=== PATIENT | male | born 1945 | race Caucasian/White ===

== ENCOUNTER 2018-03-15 17:39 | Inpatient (IN) | payer MEDICARE, MEDICAID ==
[2018-03-15 18:36] LABS: #Eosinphils 0.1 thou/uL (0.0-0.7); #Lymphocytes 0.7 thou/uL (1.20-3.40); #Monocytes 0.4 thou/uL (0.11-0.59); #Neutrophils 6.7 thou/uL (1.40-6.50); %Basophils 0.5 % (0.0-1.0); %Eosinophils 0.7 % (0.0-10.0); %Monocytes 5.3 % (0.0-10.0); %Neutrophils 84.4 % (42.0-75.0); Hemoglobin 12.3 g/dL (14.0-18.0); Mean Corpuscular HGB CONC 32.2 g/dL (32.0-36.0); Mean Corpuscular Volume 96.4 fL (78.0-98.0); Mean Platelet Volume 7.7 fL (7.4-10.4); Platelet Count 146 thou/uL (130-400); RBC Distribution Width 12.1 % (11.5-14.5); Red Blood Cell (RBC) Count 3.97 mill/uL (4.70-6.10); White Blood Cell (WBC) Count 7.9 thou/uL (4.8-10.8)
--- NOTE | 2018-03-15 18:40 | RAD ---
PORTABLE CHEST: 03/15/18 HISTORY: Tachycardia. Heart mildly prominent. Vascular markings upper normal. No infiltrate or effusion. IMPRESSION: No acute process. POS: [facility]
[2018-03-15 18:57] LABS: ALT (SGPT) 39 U/L (8-55); AST (SGOT) 31 U/L (5-34); Albumin 4.1 g/dL (3.4-4.8); Alkaline Phosphatase 62 U/L (40-150); Anion Gap 16 mmol/L (10-20); BUN (Urea Nitrogen) 37 mg/dL (8.4-25.7); Bilirubin, Total 0.4 mg/dL (0.2-1.2); Calc. Creatinine Clearance 0 mL/min (70-130); Calcium 9.2 mg/dL (7.8-10.44); Carbon Dioxide 22 mmol/L (23-31); Chloride 105 mmol/L (98-107); Estimated GFR-MDRD 56; Globulin 2.4 g/dL (2.4-3.5); Glucose 85 mg/dL (83-110); Potassium 4.4 mmol/L (3.5-5.1); Protein, Total 6.5 g/dL (5.8-8.1); Sodium 139 mmol/L (136-145)
[2018-03-15 19:02] LABS: CKMB 1.9 ng/mL (0-6.6); Troponin I 0.091 ng/mL (< 0.028)
[2018-03-15] MEDS ORDERED: Enoxaparin Sodium 80 MG/0.8 ML SYRINGE ONE (19:51)
[2018-03-15] MEDS ORDERED: Diltiazem 125 MG/25 ML ONE (21:05)
[2018-03-15] MEDS ORDERED: Acetaminophen 325 MG TAB PO PRN (21:20)
[2018-03-15] MEDS ORDERED: Dextrose 50% Abboject 50 ML SYRINGE SLOW IVP PRN (21:21)
[2018-03-15] MEDS ORDERED: Dextrose 5% in Water 1,000 ML IV PRN (21:21)
[2018-03-15 21:50] LABS: Troponin I 0.101 ng/mL (< 0.028)
[2018-03-15] MEDS ORDERED: Diltiazem HCl 125 MG, Admixture Fee 1 EACH in Sodium Chloride 0.9% 100 ML IVPB SCH (23:15)
[2018-03-15] MEDS ORDERED: Diltiazem 125 MG in Sodium Chloride 0.9% 100 ML IVPB SCH (23:45)
[2018-03-16 00:47] LABS: Troponin I 0.121 ng/mL (< 0.028)
--- NOTE | 2018-03-16 05:23 | HP ---
CHIEF COMPLAINT: Generalized weakness. HISTORY OF PRESENT ILLNESS: The patient is a 72-year-old male who is currently in a rehab center who presents to the hospital with complaints of generalized weakness. However, per documentation, it wa s noted that patient came in from the longterm for elevated heart rate. When I asked the patient , he stated that he has been feeling weak for the past few days. By EMS report, patient was found to have SVT at the rate of 158. He was given 2 boluses of adenosine, which then transferred to atrial flutter and then to normal sinus. The patient then was started on a Cardizem drip and was admitted i [facility] the hospital. The patient currently denies any chest pain, shortness of breath, nausea, vomiting or diarrhea. The patient states that currently he feels just fine. The patient stated to me that faye duke lives with his brother and his nephew. PAST MEDICAL HISTORY: He has a history of diabetes type 2, hypertension, bipolar illness, dyslipidem ia, chronic thrombocytopenia, and history of alcoholism. PAST SURGICAL HISTORY: He has had left foot surgery. CURRENT MEDICATIONS: I do not have a list. I did speak with the nurse, she said that she is waiting for the list from the rehab center. SOCIAL HISTORY: He chews tobacco on a regular basis. Denies any alcohol or smoking history or any d rug use. ALLERGIES: He has no known drug allergies. FAMILY HISTORY: His parents are . He does have 4 brothers and 2 sisters. Two brothers of unknown causes. Two brothers and sisters are still alive. REVIEW OF SYSTEMS: All negative except for the ones mentioned above in the HPI. PHYSICAL EXAMINATION: VITAL SIGNS: As of the following, temperature of 97.9, pulse 82, respiratory rate of 20, sats 94% ro om air, blood pressure 153/72. GENERAL: He is awake, alert, oriented x3. HEENT: Normocephalic, atraumatic. NECK: No lymphadenopathy noted. CARDIOVASCULAR: Irregularly irregular. LUNGS: Clear to auscultation. No rhonchi or wheezes noted. ABDOMEN: Soft, nontender. Bowel sounds are present x2. EXTREMITIES: No edema. Pedal pulses are present x2. NEUROLOGIC: Neurovascular mckeon, no focal deficits noted. SKIN: Intact. No lesions noted. LABORATORY RESULTS: As of the following: WBCs of 7.9, hemoglobin of 12.3, hematocrit of 38.3, plate lets of 146. Chemistry: Sodium of 139, potassium of 4.4, BUN of 37, creatinine 1.26. His troponins are mildly elevated at 0.091, 0.101. EKG just indicated atrial fibrillation and a repeat one was no rmal sinus. ASSESSMENT AND PLAN: The patient is a very pleasant 72-year-old male who presents to the hospital wi th generalized weakness. 1. Atrial fibrillation with rapid ventricular response/atrial flutter. The patient will be started on Cardizem drip. He is currently at 10 and he is doing well. We will continue to monitor. We will also start the patient on some aspirin and consult Cardiology and get an echocardi[facility]. 2. Elevated troponins. This could be secondary from his tachycardia. The patient currently has no chest pain, no EKG changes. We will still continue Lovenox b.i.d. and also see what Cardiology has t o say and the patient is on aspirin. 3. History of bipolar disorder. Awaiting patient's medications for reconciliation. 4. Deep venous thrombosis prophylaxis. The patient is already on Lovenox.
[2018-03-16 05:29] LABS: #Basophils 0.1 thou/uL (0.0-0.2); #Eosinphils 0.1 thou/uL (0.0-0.7); #Lymphocytes 1.2 thou/uL (1.20-3.40); #Monocytes 0.4 thou/uL (0.11-0.59); %Basophils 1.1 % (0.0-1.0); %Eosinophils 1.6 % (0.0-10.0); %Lymphocytes 25.2 % (21.0-51.0); Hemoglobin 11.1 g/dL (14.0-18.0); Mean Corpuscular HGB CONC 32.7 g/dL (32.0-36.0); Mean Corpuscular Hemoglobin 31.3 pg (27.0-31.0); Mean Corpuscular Volume 95.5 fL (78.0-98.0); Platelet Count 139 thou/uL (130-400); Red Blood Cell (RBC) Count 3.55 mill/uL (4.70-6.10); White Blood Cell (WBC) Count 4.7 thou/uL (4.8-10.8)
[2018-03-16 05:45] LABS: Anion Gap 11 mmol/L (10-20); BUN (Urea Nitrogen) 33 mg/dL (8.4-25.7); Calc. Creatinine Clearance 60 mL/min (70-130); Calcium 9.1 mg/dL (7.8-10.44); Carbon Dioxide 28 mmol/L (23-31); Chloride 106 mmol/L (98-107); Estimated GFR-MDRD 60; Glucose 166 mg/dL (83-110); Sodium 141 mmol/L (136-145)
[2018-03-16] MEDS: Gabapentin 300 MG CAP PO SCH (08:15)
[2018-03-16] MEDS ORDERED: Enoxaparin Sodium 80 MG/0.8 ML SYRINGE SC SCH (09:00)
[2018-03-16] MEDS ORDERED: Prevnar 13-Val Conj/PF 0.5 ML SYRINGE IM ONE (09:00)
[2018-03-16] MEDS ORDERED: Benztropine 1 MG TAB PO PRN (13:57)
--- NOTE | 2018-03-16 14:08 | PDOC.PN ---
- Subjective Encounter Start Date: 03/16/18 Encounter Start Time: 07:40 Pt seen for followup re; a. fib with RVR. Pt denies chest pain, shortness of breath, fevers or chills. - Objective Resuscitation Status: Resuscitation Status FULL:Full Resuscitation MAR Reviewed: Yes Vital Signs & Weight: Vital Signs (12 hours) Temp Pulse Resp BP Pulse Ox 03/16/18 12:40 96.2 F L 94 18 103/61 95 03/16/18 08:00 99 03/16/18 07:34 97.8 F 99 16 120/62 97 03/16/18 04:00 97.6 F 80 14 95/58 L 94 L Weight Weight 169 lb 3.2 oz I&O: 03/15/18 03/16/18 03/17/18 06:59 06:59 06:59 Intake Total 240 Balance 240 Result Diagrams: 03/16/18 05:00 03/16/18 05:00 Additional Labs: Accuchecks 03/16/18 03/16/18 10:53 05:28 POC Glucose 143 H 138 H EKG Reviewed by me: Yes (Tele: ruth ann richardson) Phys Exam - Physical Examination Constitutional: NAD HEENT: moist MMs Neck: supple Respiratory: clear to auscultation bilateral Cardiovascular: irregular Gastrointestinal: soft Neurological: moves all 4 limbs Psychiatric: normal affect Dx/Plan (1) Atrial fibrillation with RVR Code(s): I48.91 - UNSPECIFIED ATRIAL FIBRILLATION Status: Acute Comment: unclear whether a. fib is a new diagnosis. Pt was on apixaban and metoprolol at Rehab. Will switch back to metoprolol and monitor. Discontinue Lovenox and start apixaban. (2) DM2 (diabetes mellitus, type 2) Status: Chronic Qualifiers: Comment: continue accuchecks and insulin sliding scale (3) HTN (hypertension) Code(s): I10 - ESSENTIAL (PRIMARY) HYPERTENSION Status: Chronic Qualifiers: Comment: controlled - Plan * . Review of Systems - Review of Systems Respiratory: negative: Cough, Shortness of Breath, SOB with Excertion, Pleuritic Pain, Wheezing Cardiovascular: negative: chest pain, palpitations, orthopnea, paroxysmal nocturnal dyspnea, edema, light headedness - Medications/Allergies Allergies/Adverse Reactions: Allergies Allergy/AdvReac Type Severity Reaction Status Date / Time No Known Drug Allergies Allergy Verified 03/16/18 02:10 Medications: Current Medications Acetaminophen (Tylenol) 650 mg PO Q4H PRN PRN Reason: Headache/Fever/Mild Pain (1-3) Apixaban (Eliquis) 2.5 mg PO BID [facility] Aspirin (Aspirin Chewable) 81 mg PO DAILY [facility] Last Admin: 03/16/18 08:15 Dose: 81 mg Aspirin (Aspirin Chewable) 81 mg PO DAILY [facility] Atorvastatin Calcium (Lipitor) 20 mg PO HS [facility] Atorvastatin Calcium (Lipitor) 40 mg PO DAILY [facility] Benztropine Mesylate (Cogentin) 1 mg PO HS [facility] Benztropine Mesylate (Cogentin) 1 mg PO PRN PRN PRN Reason: SORE THROAT Cyanocobalamin (Vitamin B-12) 1,000 mcg SC Q7D [facility] Dextrose/Water (Dextrose 50%) 25 gm SLOW IVP PRN PRN PRN Reason: Hypoglycemia Famotidine (Pepcid) 20 mg PO DAILY [facility] Gabapentin (Neurontin) 600 mg PO DAILY [facility] Last Admin: 03/16/18 08:15 Dose: 600 mg Glucagon (Glucagon) 1 mg IM PRN PRN PRN Reason: Hypoglycemia Haloperidol (Haldol) 5 mg PO HS [facility] Dextrose/Water (D5w) 1,000 mls @ 0 mls/hr IV .Q0M PRN PRN Reason: Hypoglycemia Insulin Human Lispro (Humalog) 0 units SC .MILD SLIDING SCALE PRN PRN Reason: Mild Correctional Scale Iron/Minerals/Multivitamins (Theragran M) 1 tab PO DAILY [facility] Lisinopril (Zestril) 40 mg PO DAILY [facility] Metformin HCl (Glucophage) 500 mg PO TID-WM [facility] Metoprolol Tartrate (Lopressor) 50 mg PO BID [facility] Pioglitazone HCl (Actos) 45 mg PO DAILY [facility] Tamsulosin HCl (Flomax) 0.4 mg PO DAILY [facility] Tramadol HCl (Ultram) 50 mg PO Q6H PRN PRN Reason: Pain 4-6
--- NOTE | 2018-03-16 14:58 | CON ---
DATE OF CONSULTATION: 03/16/2018 CARDIOLOGY CONSULTATION REASON FOR CONSULTATION: Atrial fibrillation. HISTORY OF PRESENT ILLNESS: Mr. Modi is a very pleasant 72-year-old white gentleman who comes to [facility] for feeling weak. He had noticed shortness of breath and just tiredness and weakness for the last few weeks. He was at a care home. He felt worse yesterday, so 911 was called. EMS show ed up and found him to be tachycardia with a heart rate in the 150s, thought to be SVT, so he was giv en a dose at adenosine and he evidenced atrial flutter at that time. Eventually, he was placed on a Cardizem drip and converted into atrial fibrillation. Currently, he is on a Cardizem drip with axel azar low blood pressures, but heart rate is in the 70s-90s. He denies any chest pain, tightness, pr essure. No shortness of breath. PAST MEDICAL HISTORY: 1. Type 2 diabetes. 2. Hypertension. 3. Bipolar disorder. 4. Hyperlipidemia. 5. Chronic thrombocytopenia. He tells me he has never drank. He has never been a heavy alcohol user. There is apparently a William hu, who is actually his brother, who is a heavy alcohol user and he thinks people have confused him with his brother. He tells me he has heard the diagnosis of cirrhosis, but he does believe he has i t. PAST SURGICAL HISTORY: Left foot surgery. OUTPATIENT MEDICATIONS: 1. Insulin. 2. Tylenol p.r.n. 3. Loperamide. 4. Clonidine p.r.n. 5. Calcium. 6. Guaifenesin p.r.n. 7. Famotidine 20 mg a day. 8. Eliquis 2.5 mg b.i.d. 9. MiraLax p.r.n. 10. Multivitamin daily. 11. Metoprolol 50 mg b.i.d. 12. Lisinopril 40 mg a day. 13. Cogentin 1 mg at bedtime. 14. Lipitor 40 mg a day. 15. Aspirin 81 a day. 16. Tamsulosin 0.4 daily. 17. Benztropine p.r.n. 18. Metformin 500 mg t.i.d. 19. Actos. 20. Haldol at bedtime. 21. Tramadol p.r.n. ALLERGIES: No known drug allergies. SOCIAL HISTORY: Chews tobacco. No alcohol or drugs. FAMILY HISTORY: Noncontributory. Two brothers from unknown causes. A sister and a brother are still alive. REVIEW OF SYSTEMS: A 12-point review of systems was done and it is all negative unless stated in the history of present illness. PHYSICAL EXAMINATION: VITAL SIGNS: Temperature 96.2, pulse 94, respiration rate 18, satting 95% on room air, blood pressur e 103/61. GENERAL: Awake, alert, oriented x3, in no distress. HEENT: Normocephalic, atraumatic. NECK: Supple. LUNGS: Clear. CARDIOVASCULAR: S1, S2. No S3 or S4. Irregularly irregular heart rate in the 80s. No murmurs or r ubs. ABDOMEN: Soft. Positive bowel sounds. EXTREMITIES: Trace edema. SKIN: Warm and dry. LABORATORY WORK: Reviewed. CBC with a white count of 11.1, hemoglobin of 33, platelet count of 139, 000. Coags, D-dimer was normal. Chemistries unremarkable. His LFTs are all normal. Bilirubin is 0 .4. Troponin at indeterminate range at 0.09, 0.10 and 0.12. This is consistent with his normal base line creatinine he always runs at. Albumin of 4.1. Echocardiogram was reviewed. Chest x-ray was reviewed. ASSESSMENT: 1. Paroxysmal atrial fibrillation. 2. Chronic thrombocytopenia, though his platelets are in the 130s, slightly decreased. 3. Questionable history of alcohol use. He denies this and states that it is his brother, actually William Modi, not Isaiah Modi, who is actually the alcoholic of the family. PLAN: 1. We would continue Eliquis for stroke prophylaxis. He is really not at fall risk. He has never h ad any bleeding issues. 2. We will transition his diltiazem drip to p.o. We will just restart his p.o. metoprolol and try t o up titrate that as necessary as most likely if we switch him to p.o. diltiazem, this will drop his blood pressure too much. 3. May cut back on his lisinopril to 20 a day to have a little more space for blood pressure. 4. We will follow. Thank you for letting us participate in the care of this patient.
[2018-03-16] MEDS: HumaLOG 300 UNITS/3 ML VIAL SC PRN (17:08)
[2018-03-16] MEDS: metFORMIN 500 MG TAB PO SCH (17:08)
[2018-03-16] MEDS: Haloperidol 5 MG TAB PO SCH (21:38)
[2018-03-16] MEDS: Metoprolol Tartrate 50 MG TAB PO SCH (21:38)
[2018-03-16] MEDS: Benztropine 1 MG TAB PO SCH (21:38)
[2018-03-16] MEDS: Atorvastatin Calcium 20 MG TAB PO SCH (21:38)
[2018-03-16] MEDS: Apixaban 2.5 MG TAB PO SCH (21:38)
[2018-03-17] MEDS: Metoprolol Tartrate 50 MG TAB PO SCH (06:08)
[2018-03-17] MEDS ORDERED: Diltiazem 125 MG in Sodium Chloride 0.9% 100 ML IVPB SCH (06:30)
[2018-03-17] MEDS: Apixaban 2.5 MG TAB PO SCH ×2 (08:19→19:37)
[2018-03-17] MEDS: metFORMIN 500 MG TAB PO SCH ×3 (08:19→17:36)
[2018-03-17] MEDS: Multivitamin W/ Minerals 1 TAB PO SCH (08:20)
[2018-03-17] MEDS: Pioglitazone HCl 45 MG TAB PO SCH (08:20)
[2018-03-17] MEDS: Gabapentin 300 MG CAP PO SCH (08:20)
[2018-03-17] MEDS: Cyanocobalamin 1000 MCG/ML VIAL SC SCH (08:20)
[2018-03-17] MEDS: Tamsulosin HCl 0.4 MG CAP PO SCH (08:20)
[2018-03-17] MEDS: Famotidine 20 MG TAB PO SCH (08:20)
[2018-03-17] MEDS: Lisinopril 20 MG TAB PO SCH (08:20)
[2018-03-17] MEDS ORDERED: Metoprolol Tartrate 25 MG TAB PO SCH ×2 (09:00→11:30)
[2018-03-17] MEDS ORDERED: Atorvastatin Calcium 40 MG TAB PO SCH (09:00)
[2018-03-17] MEDS ORDERED: Lisinopril 20 MG TAB PO SCH (09:00)
[2018-03-17] MEDS: Metoprolol Tartrate 25 MG TAB PO SCH ×2 (11:33→19:36)
--- NOTE | 2018-03-17 11:46 | PDOC.PN ---
- Subjective Encounter Start Date: 03/17/18 Encounter Start Time: 07:40 Pt seen for followup re: afib with RVR. Denies chest pain, shortness of breath , fevers or chills. - Objective Resuscitation Status: Resuscitation Status FULL:Full Resuscitation MAR Reviewed: Yes Vital Signs & Weight: Vital Signs (12 hours) Temp Pulse Resp BP Pulse Ox 03/17/18 11:22 98.9 F 102 H 16 109/65 03/17/18 08:00 92 L 03/17/18 07:34 98.8 F 67 16 120/59 L 92 L 03/17/18 04:00 98.5 F 108 H 22 H 139/97 H 93 L Weight Weight 169 lb I&O: 03/16/18 03/17/18 03/18/18 06:59 06:59 06:59 Intake Total 240 720 Balance 240 720 Result Diagrams: 03/18/18 04:45 03/18/18 04:45 Additional Labs: Accuchecks 03/16/18 03/16/18 20:49 16:45 POC Glucose 178 H 227 H EKG Reviewed by me: Yes (Tele: ruth ann richardson) Phys Exam - Physical Examination Constitutional: NAD HEENT: moist MMs Neck: supple Respiratory: clear to auscultation bilateral Cardiovascular: irregular Gastrointestinal: soft Neurological: moves all 4 limbs Psychiatric: normal affect Dx/Plan (1) Atrial fibrillation with RVR Code(s): I48.91 - UNSPECIFIED ATRIAL FIBRILLATION Status: Acute Comment: uPt went into afib with RVR overnight, is back on Cardizem drip. (2) DM2 (diabetes mellitus, type 2) Status: Chronic Qualifiers: Comment: reasonable control (3) HTN (hypertension) Code(s): I10 - ESSENTIAL (PRIMARY) HYPERTENSION Status: Chronic Qualifiers: Comment: controlled - Plan * . Review of Systems - Review of Systems Cardiovascular: negative: chest pain, palpitations, orthopnea, paroxysmal nocturnal dyspnea, edema, light headedness Gastrointestinal: negative: Nausea, Vomiting, Abdominal Pain, Diarrhea, Constipation, Melena, Hematochezia - Medications/Allergies Allergies/Adverse Reactions: Allergies Allergy/AdvReac Type Severity Reaction Status Date / Time No Known Drug Allergies Allergy Verified 03/16/18 02:10 Medications: Current Medications Acetaminophen (Tylenol) 650 mg PO Q4H PRN PRN Reason: Headache/Fever/Mild Pain (1-3) Apixaban (Eliquis) 2.5 mg PO BID [facility] Last Admin: 03/17/18 08:19 Dose: 2.5 mg Aspirin (Aspirin Chewable) 81 mg PO DAILY [facility] Last Admin: 03/17/18 08:20 Dose: 81 mg Atorvastatin Calcium (Lipitor) 20 mg PO HS [facility] Last Admin: 03/16/18 21:38 Dose: 20 mg Benztropine Mesylate (Cogentin) 1 mg PO HS [facility] Last Admin: 03/16/18 21:38 Dose: 1 mg Cyanocobalamin (Vitamin B-12) 1,000 mcg SC Q7D [facility] Last Admin: 03/17/18 08:20 Dose: 1,000 mcg Dextrose/Water (Dextrose 50%) 25 gm SLOW IVP PRN PRN PRN Reason: Hypoglycemia Famotidine (Pepcid) 20 mg PO DAILY [facility] Last Admin: 03/17/18 08:20 Dose: 20 mg Gabapentin (Neurontin) 600 mg PO DAILY [facility] Last Admin: 03/17/18 08:20 Dose: 600 mg Glucagon (Glucagon) 1 mg IM PRN PRN PRN Reason: Hypoglycemia Haloperidol (Haldol) 5 mg PO [facility] Last Admin: 03/16/18 21:38 Dose: 5 mg Dextrose/Water (D5w) 1,000 mls @ 0 mls/hr IV .Q0M PRN PRN Reason: Hypoglycemia Diltiazem HCl 125 mg/ Sodium (Chloride) 125 mls @ 5 mls/hr IVPB INF [facility] Last Admin: 03/17/18 07:01 Dose: 125 mls Insulin Human Lispro (Humalog) 0 units SC .MILD SLIDING SCALE PRN PRN Reason: Mild Correctional Scale Last Admin: 03/16/18 17:08 Dose: 3 unit Iron/Minerals/Multivitamins (Theragran M) 1 tab PO DAILY [facility] Last Admin: 03/17/18 08:20 Dose: 1 tab Lisinopril (Zestril) 20 mg PO DAILY [facility] Last Admin: 03/17/18 08:20 Dose: 20 mg Metformin HCl (Glucophage) 500 mg PO TID-WM [facility] Last Admin: 03/17/18 11:32 Dose: 500 mg Metoprolol Tartrate (Lopressor) 75 mg PO BID [facility] Last Admin: 03/17/18 11:33 Dose: Not Given Metoprolol Tartrate (Lopressor) 25 mg PO NOW [facility] Stop: 03/17/18 13:00 Last Admin: 03/17/18 11:32 Dose: Not Given Pioglitazone HCl (Actos) 45 mg PO DAILY [facility] Last Admin: 03/17/18 08:20 Dose: 45 mg Tamsulosin HCl (Flomax) 0.4 mg PO DAILY [facility] Last Admin: 03/17/18 08:20 Dose: 0.4 mg Tramadol HCl (Ultram) 50 mg PO Q6H PRN PRN Reason: Pain 4-6
--- NOTE | 2018-03-17 14:02 | PDOC.CTH ---
Cardiology Progress Note - Subjective No new issues or complaints. - Objective Vital Signs Temp Pulse Resp BP Pulse Ox 03/17/18 11:22 98.9 F 102 H 16 109/65 03/17/18 08:00 92 L 03/17/18 07:34 98.8 F 67 16 120/59 L 92 L 03/17/18 04:00 98.5 F 108 H 22 H 139/97 H 93 L Weight 169 lb 03/16/18 03/17/18 03/18/18 06:59 06:59 06:59 Intake Total 240 720 Balance 240 720 - Physical Examination General/Neuro: alert & oriented x3, NAD Neck: no JVD present Lungs: CTA, unlabored respirations Heart: RRR Abdomen: NT/ND Extremities: other: (no edema) - Telemetry Telemetry Rhythm: Afib HR 80-110 - Labs Result Diagrams: 03/16/18 05:00 03/16/18 05:00 Troponin/CKMB CK-MB (CK-2) 1.9 ng/mL (0-6.6) 03/15/18 18:30 Troponin I 0.121 ng/mL (< 0.028) H 03/16/18 00:15 - Assessment/Plan 1. Paroxysmal Afib RVR 2. DMT2 3. HTN PLAN: - Continue Eliquis for stroke prophylaxis. - Will transition diltiazem to PO.
[2018-03-17] MEDS: HumaLOG 300 UNITS/3 ML VIAL SC PRN (17:36)
[2018-03-17] MEDS: Diltiazem HCl SR 60 mg Capsule PO SCH (19:36)
[2018-03-17] MEDS: Benztropine 1 MG TAB PO SCH (19:36)
[2018-03-17] MEDS: Atorvastatin Calcium 20 MG TAB PO SCH (19:36)
[2018-03-17] MEDS: Haloperidol 5 MG TAB PO SCH (19:36)
[2018-03-18] MEDS ORDERED: Atropine Sulfate 1 mg/10 ml Syringe ONE (04:27)
[2018-03-18] MEDS ORDERED: cefTRIAXone\\ROCEPHIN 1 GM in Sodium Chloride 0.9% 100 ML IVPB SCH (04:45)
[2018-03-18] MEDS ORDERED: Sodium Chloride 0.9% 2,500 ML IV SCH (04:45)
[2018-03-18] MEDS ORDERED: DOPamine 400 MG/D5W 250 ML 250 ML ONE (04:47)
[2018-03-18 05:24] LABS: #Eosinphils 0.1 thou/uL (0.0-0.7); #Monocytes 0.7 thou/uL (0.11-0.59); #Neutrophils 5.7 thou/uL (1.40-6.50); %Basophils 0.4 % (0.0-1.0); %Eosinophils 0.8 % (0.0-10.0); %Lymphocytes 13.6 % (21.0-51.0); %Neutrophils 76.1 % (42.0-75.0); Hemoglobin 9.5 g/dL (14.0-18.0); Mean Corpuscular HGB CONC 32.9 g/dL (32.0-36.0); Mean Corpuscular Hemoglobin 31.6 pg (27.0-31.0); Mean Platelet Volume 7.4 fL (7.4-10.4); PLT Morphology Comment Appears Decreased; Platelet Count 98 thou/uL (130-400); RBC Distribution Width 12.3 % (11.5-14.5); Red Blood Cell (RBC) Count 3.02 mill/uL (4.70-6.10); White Blood Cell (WBC) Count 7.5 thou/uL (4.8-10.8)
[2018-03-18 05:27] LABS: ALT (SGPT) 20 U/L (8-55); AST (SGOT) 9 U/L (5-34); Albumin 2.7 g/dL (3.4-4.8); Alkaline Phosphatase 39 U/L (40-150); Anion Gap 11 mmol/L (10-20); BUN (Urea Nitrogen) 38 mg/dL (8.4-25.7); Bilirubin, Total 0.7 mg/dL (0.2-1.2); Calc. Creatinine Clearance 43 mL/min (70-130); Calcium 7.1 mg/dL (7.8-10.44); Carbon Dioxide 22 mmol/L (23-31); Chloride 112 mmol/L (98-107); Estimated GFR-MDRD 40; Globulin 1.6 g/dL (2.4-3.5); Glucose 152 mg/dL (83-110); Potassium 4.2 mmol/L (3.5-5.1); Protein, Total 4.3 g/dL (5.8-8.1); Sodium 141 mmol/L (136-145)
[2018-03-18 05:38] LABS: Troponin I 0.302 ng/mL (< 0.028)
[2018-03-18] MEDS ORDERED: Norepinephrine 8 MG/0.9% NS 250 ML ONE (06:43)
[2018-03-18] MEDS ORDERED: Norepinephrine 8 MG/250 ML IVPB SCH (06:45)
[2018-03-18] MEDS: Sodium Chloride 0.9% 1,000 ML IV SCH ×3 (07:36→21:06)
[2018-03-18 07:55] LABS: Bilirubin Negative (Negative); Blood, Urine Large (Negative); Clarity CLOUDY (Clear); Glucose, Urine (Dipstick) Negative (Negative); Leukocyte Small (Negative); Nitrite Negative (Negative); Protein, Urine (Dipstick) 30 mg/dL (Neg-Trace); Specific Gravity, Urine 1.013 (1.002-1.036); Urobilinogen 0.2 mg/dL (0.2-1.0); pH, Urine 5.5 (5.0-9.0)
[2018-03-18 07:57] LABS: Bacteria/HPF 4+ HPF (None Seen); Hyaline Casts/LPF 0-3 HYALINE CAST LPF (0-3 Hyaline); RBC/HPF 0-3 HPF (0-3); Squamous Epithelial None Seen HPF (0-3)
[2018-03-18] MEDS: Piperacillin/Tazobactam 3.375 GM in Sodium Chloride 0.9% 100 ML IVPB SCH ×3 (09:12→21:01)
[2018-03-18] MEDS: Gabapentin 300 MG CAP PO SCH (09:13)
[2018-03-18] MEDS: Famotidine 20 MG TAB PO SCH (09:13)
[2018-03-18] MEDS: Apixaban 2.5 MG TAB PO SCH ×2 (09:13→21:01)
[2018-03-18] MEDS: metFORMIN 500 MG TAB PO SCH ×3 (09:13→17:12)
[2018-03-18] MEDS: Multivitamin W/ Minerals 1 TAB PO SCH (09:14)
[2018-03-18] MEDS: Lisinopril 20 MG TAB PO SCH (11:43)
[2018-03-18] MEDS: Diltiazem HCl SR 60 mg Capsule PO SCH ×2 (11:43→21:06)
[2018-03-18] MEDS: Pioglitazone HCl 45 MG TAB PO SCH (11:44)
[2018-03-18] MEDS: Metoprolol Tartrate 25 MG TAB PO SCH ×2 (11:51→21:02)
[2018-03-18] MEDS: HumaLOG 300 UNITS/3 ML VIAL SC PRN (11:51)
[2018-03-18] MEDS: Tamsulosin HCl 0.4 MG CAP PO SCH (11:51)
--- NOTE | 2018-03-18 12:11 | PDOC.CTH ---
Cardiology Progress Note - Objective Vital Signs Temp Pulse Resp BP Pulse Ox 03/18/18 08:00 97.6 F 100 03/18/18 06:45 97.9 F 03/18/18 04:00 98.3 F 65 20 71/47 L 97 Weight 170 lb 03/17/18 03/18/18 03/19/18 06:59 06:59 06:59 Intake Total 720 500 Output Total 1950 485 Balance 720 -1950 15 - Physical Examination General/Neuro: alert & oriented x3 Neck: carotid US brisk Lungs: CTA Heart: other: (irreg.) Abdomen: soft - Telemetry Telemetry Rhythm: Afib. rate controlled. - Labs Result Diagrams: 03/18/18 04:45 03/18/18 04:45 Troponin/CKMB CK-MB (CK-2) 1.9 ng/mL (0-6.6) 03/15/18 18:30 Troponin I 0.302 ng/mL (< 0.028) H* 03/18/18 04:45 - Assessment/Plan 1. Paroxysmal Afib RVR 2. DMT2 3. HTN. Hypotensive last PM. Responded to IV fluids and pressores. He is still on IV Levophen. Tapering off. PLAN: - Continue Eliquis for stroke prophylaxis. - Transfer to [facility] when BP stable off pressors.
--- NOTE | 2018-03-18 13:29 | PDOC.PN ---
- Subjective Encounter Start Date: 03/18/18 Encounter Start Time: 07:40 Pt seen for followup re: shock. Sleepy but arousable, not answering questions, could not complete ROS. - Objective Resuscitation Status: Resuscitation Status FULL:Full Resuscitation MAR Reviewed: Yes Vital Signs & Weight: Vital Signs (12 hours) Temp Pulse Resp BP Pulse Ox 03/18/18 08:00 97.6 F 100 03/18/18 06:45 97.9 F 03/18/18 04:00 98.3 F 65 20 71/47 L 97 Weight Weight 170 lb Most Recent Monitor Data Heart Rate from ECG 83 NIBP 102/74 NIBP BP-Mean 83 Respiration from ECG 16 SpO2 100 I&O: 03/17/18 03/18/18 03/19/18 06:59 06:59 06:59 Intake Total 720 860 Output Total 1950 610 Balance 720 -1950 250 Result Diagrams: 03/18/18 04:45 03/18/18 04:45 Additional Labs: Accuchecks 03/18/18 03/18/18 03/18/18 11:46 05:45 04:45 POC Glucose 214 H 134 H 152 H 03/17/18 03/17/18 20:56 17:09 POC Glucose 322 H 196 H EKG Reviewed by me: Yes (Tele: a. debra) Phys Exam - Physical Examination Constitutional: NAD HEENT: moist MMs Neck: supple Respiratory: clear to auscultation bilateral Cardiovascular: irregular Gastrointestinal: soft Neurological: moves all 4 limbs Psychiatric: normal affect Dx/Plan (1) Shock Code(s): R57.9 - SHOCK, UNSPECIFIED Status: Acute Comment: Etiology unclear. Pt has been started on pressors because he did not respond to fluids. Blood cultures sent, pt is on empiric antibiotics for possible infectious etiology. (2) Troponin level elevated Code(s): R79.89 - OTHER SPECIFIED ABNORMAL FINDINGS OF BLOOD CHEMISTRY Status : Acute Comment: Likely demand ischemia, recheck (3) Atrial fibrillation with RVR Code(s): I48.91 - UNSPECIFIED ATRIAL FIBRILLATION Status: Acute Comment: rate-controlled (4) DM2 (diabetes mellitus, type 2) Status: Chronic Qualifiers: Comment: reasonable control (5) HTN (hypertension) Code(s): I10 - ESSENTIAL (PRIMARY) HYPERTENSION Status: Chronic Qualifiers: Comment: pt is hypotensive - Plan * . Review of Systems - Medications/Allergies Allergies/Adverse Reactions: Allergies Allergy/AdvReac Type Severity Reaction Status Date / Time No Known Drug Allergies Allergy Verified 03/16/18 02:10 Medications: Current Medications Acetaminophen (Tylenol) 650 mg PO Q4H PRN PRN Reason: Headache/Fever/Mild Pain (1-3) Last Admin: 03/18/18 00:34 Dose: 650 mg Apixaban (Eliquis) 2.5 mg PO BID [facility] Last Admin: 03/18/18 09:13 Dose: 2.5 mg Aspirin (Aspirin Chewable) 81 mg PO DAILY [facility] Last Admin: 03/18/18 09:13 Dose: 81 mg Atorvastatin Calcium (Lipitor) 20 mg PO HS [facility] Last Admin: 03/17/18 19:36 Dose: 20 mg Benztropine Mesylate (Cogentin) 1 mg PO HS [facility] Last Admin: 03/17/18 19:36 Dose: 1 mg Cyanocobalamin (Vitamin B-12) 1,000 mcg SC Q7D [facility] Last Admin: 03/17/18 08:20 Dose: 1,000 mcg Dextrose/Water (Dextrose 50%) 25 gm SLOW IVP PRN PRN PRN Reason: Hypoglycemia Diltiazem HCl (Cardizem Sr) 60 mg PO BID [facility] Last Admin: 03/18/18 11:43 Dose: Not Given Famotidine (Pepcid) 20 mg PO DAILY [facility] Last Admin: 03/18/18 09:13 Dose: 20 mg Gabapentin (Neurontin) 600 mg PO DAILY [facility] Last Admin: 03/18/18 09:13 Dose: 600 mg Glucagon (Glucagon) 1 mg IM PRN PRN PRN Reason: Hypoglycemia Haloperidol (Haldol) 5 mg PO HS [facility] Last Admin: 03/17/18 19:36 Dose: 5 mg Dextrose/Water (D5w) 1,000 mls @ 0 mls/hr IV .Q0M PRN PRN Reason: Hypoglycemia Norepinephrine Bitartrate (Levophed) 250 mls @ 0 mls/hr IVPB INF [facility]; Protocol Last Admin: 03/18/18 06:44 Dose: 250 mls Piperacillin Sod/Tazobactam (Sod 3.375 gm/ Sodium Chloride) 100 mls @ 200 mls/ hr IVPB 0200,0800,1400,2000 [facility] Last Admin: 03/18/18 13:23 Dose: 100 mls Sodium Chloride (Normal Saline 0.9%) 1,000 mls @ 100 mls/hr IV .Q10H [facility] Last Admin: 03/18/18 13:24 Dose: 1,000 mls Insulin Human Lispro (Humalog) 0 units SC .MILD SLIDING SCALE PRN PRN Reason: Mild Correctional Scale Last Admin: 03/18/18 11:51 Dose: 3 unit Iron/Minerals/Multivitamins (Theragran M) 1 tab PO DAILY [facility] Last Admin: 03/18/18 09:14 Dose: 1 tab Lisinopril (Zestril) 20 mg PO DAILY [facility] Last Admin: 03/18/18 11:43 Dose: Not Given Metformin HCl (Glucophage) 500 mg PO TID-[facility] Last Admin: 03/18/18 11:50 Dose: 500 mg Metoprolol Tartrate (Lopressor) 75 mg PO BID [facility] Last Admin: 03/18/18 11:51 Dose: 75 mg Pioglitazone HCl (Actos) 45 mg PO DAILY [facility] Last Admin: 03/18/18 11:44 Dose: Not Given Tamsulosin HCl (Flomax) 0.4 mg PO DAILY [facility] Last Admin: 03/18/18 11:51 Dose: 0.4 mg Tramadol HCl (Ultram) 50 mg PO Q6H PRN PRN Reason: Pain 4-6
[2018-03-18 14:23] LABS: Troponin I 0.184 ng/mL (< 0.028)
--- NOTE | 2018-03-18 15:26 | CON ---
DATE OF CONSULTATION: 03/18/2018 HISTORY OF PRESENT ILLNESS: Mr. Modi is a 72-year-old male. He says he ambulates with a walker at home. He says he has 2 nice walkers at home that he gets around with. He presented with complaints of weakness. He lives in a fulltime care environment. He had atrial fibrillation with a rate of over 150. Initially apparently the records say he was in SVT. He converted to atrial flutter after adenosine. I would wonder if this was then more likely atrial fibrillation that converted to atrial flutter. In any event, he was transferred to the ICU because of the low blood pressure this morning. He had a negative 1950 mL fluid balance as of this morning from yesterday. He has been hydrated and is now weaned off Levophed. PAST MEDICAL HISTORY: Remarkable for hypertension. He will need to gradually have his beta celeste, then Cardizem reinstituted. Some of his weakness may be medication related prior to admission, it is difficult to tell. He is not the best historian. Other issues include bipolar disorder, lipid disorder, chronic thrombocytopenia. SOCIAL HISTORY: He is a nonsmoker, nondrinker. In 09/2016, he was here for an anterior cervical diskectomy at C3-C4 and titanium instrumentation of posterior C3-C4 laminectomy. It is unclear that this is why he still walking with a walker. Preoperative diagnosis with cervical stenosis. He has a history of prostate enlargement and was seen by Dr. Foster for urinary retention back in 2016. History of a diabetic ulcer requiring incision and drainage with MRSA in 2014. He has had foot surgery. He chews tobacco, does not smoke. He is not a drinker. FAMILY HISTORY: Non contributory. REVIEW OF SYSTEMS: 10 point review of systems completed, otherwise negative. He has no complaints at this time. PHYSICAL EXAMINATION: GENERAL: He presented with complaints of weakness. VITAL SIGNS: Blood pressure 102/74, respiratory rate 16, heart rate 83. HEENT: Pupils react. Sclerae is anicteric. NECK: Supple. He has no cervical lymphadenopathy. LUNGS: Clear. HEART: Remarkable for atrial fibrillation with a rate in the 80s, oximetry is 100%. S1 and S2 are normal, no murmurs heard. ABDOMEN: Soft and nontender. EXTREMITIES: Without clubbing, cyanosis or edema. IMPRESSION: Hypotension, likely secondary to diuresis. He has responded to volume replacement. He has weaned off his Levophed, could be transferred back to a monitored bed if he remains stable throughout the afternoon. This was a 50-minute consult, with greater than 50% of the time spent on unit in coordination of care. JACY
[2018-03-18] MEDS: Atorvastatin Calcium 20 MG TAB PO SCH (21:01)
[2018-03-18] MEDS: Haloperidol 5 MG TAB PO SCH (21:02)
[2018-03-18] MEDS: Benztropine 1 MG TAB PO SCH (21:02)
[2018-03-19] MEDS: Piperacillin/Tazobactam 3.375 GM in Sodium Chloride 0.9% 100 ML IVPB SCH ×4 (02:11→21:57)
[2018-03-19 05:15] LABS: #Eosinphils 0.1 thou/uL (0.0-0.7); #Lymphocytes 0.9 thou/uL (1.20-3.40); #Monocytes 0.5 thou/uL (0.11-0.59); #Neutrophils 3.8 thou/uL (1.40-6.50); %Basophils 0.6 % (0.0-1.0); %Lymphocytes 16.5 % (21.0-51.0); %Monocytes 9.9 % (0.0-10.0); %Neutrophils 71.1 % (42.0-75.0); Mean Corpuscular HGB CONC 34.1 g/dL (32.0-36.0); Mean Corpuscular Hemoglobin 32.6 pg (27.0-31.0); Mean Corpuscular Volume 95.5 fL (78.0-98.0); Mean Platelet Volume 7.7 fL (7.4-10.4); Platelet Count 104 thou/uL (130-400); RBC Distribution Width 12.1 % (11.5-14.5); Red Blood Cell (RBC) Count 3.08 mill/uL (4.70-6.10); White Blood Cell (WBC) Count 5.3 thou/uL (4.8-10.8)
[2018-03-19 05:34] LABS: Anion Gap 12 mmol/L (10-20); BUN (Urea Nitrogen) 25 mg/dL (8.4-25.7); Calc. Creatinine Clearance 67 mL/min (70-130); Calcium 7.8 mg/dL (7.8-10.44); Carbon Dioxide 22 mmol/L (23-31); Chloride 108 mmol/L (98-107); Estimated GFR-MDRD 64; Glucose 121 mg/dL (83-110); Potassium 3.7 mmol/L (3.5-5.1); Sodium 138 mmol/L (136-145)
[2018-03-19] MEDS ORDERED: Sodium Chloride 0.9% 10 ML ONE (08:26)
[2018-03-19] MEDS: Sodium Chloride 0.9% 1,000 ML IV SCH (09:14)
[2018-03-19] MEDS: Gabapentin 300 MG CAP PO SCH (09:19)
[2018-03-19] MEDS: Metoprolol Tartrate 25 MG TAB PO SCH ×2 (09:19→21:10)
[2018-03-19] MEDS: Tamsulosin HCl 0.4 MG CAP PO SCH (09:19)
[2018-03-19] MEDS: Apixaban 2.5 MG TAB PO SCH ×2 (09:19→21:58)
[2018-03-19] MEDS: Lisinopril 20 MG TAB PO SCH (09:19)
[2018-03-19] MEDS: Famotidine 20 MG TAB PO SCH (09:20)
[2018-03-19] MEDS: metFORMIN 500 MG TAB PO SCH ×3 (09:20→18:22)
[2018-03-19] MEDS: Pioglitazone HCl 45 MG TAB PO SCH (09:20)
[2018-03-19] MEDS: Multivitamin W/ Minerals 1 TAB PO SCH (09:20)
[2018-03-19] MEDS: Diltiazem HCl SR 60 mg Capsule PO SCH ×2 (09:20→21:09)
--- NOTE | 2018-03-19 10:40 | PDOC.PN ---
- Subjective Encounter Start Date: 03/19/18 Encounter Start Time: 08:00 Pt seen for followup re: E. coli UTI. Awake and alert, denies chest pain, shortness of breath, fevers or chills. - Objective Resuscitation Status: Resuscitation Status FULL:Full Resuscitation MAR Reviewed: Yes Vital Signs & Weight: Vital Signs (12 hours) Temp Pulse Resp BP BP Pulse Ox 03/19/18 07:55 97.9 F 85 18 102/57 L 99 03/19/18 04:00 98.9 F 74 14 103/55 L 98 03/19/18 00:55 76 135/65 Weight Weight 178 lb 1.6 oz Most Recent Monitor Data Heart Rate from ECG 83 NIBP 111/79 NIBP BP-Mean 89 Respiration from ECG 19 SpO2 100 I&O: 03/18/18 03/19/18 03/20/18 06:59 06:59 06:59 Intake Total 2500 Output Total 1950 2440 Balance -1950 60 Result Diagrams: 03/20/18 03:44 03/20/18 03:44 Additional Labs: Accuchecks 03/19/18 03/18/18 03/18/18 06:13 20:33 17:01 POC Glucose 138 H 173 H 135 H 03/18/18 11:46 POC Glucose 214 H EKG Reviewed by me: Yes (Tele: ruth ann richardson) Phys Exam - Physical Examination Constitutional: NAD HEENT: moist MMs Neck: supple Respiratory: clear to auscultation bilateral Cardiovascular: RRR Gastrointestinal: soft Neurological: moves all 4 limbs Psychiatric: normal affect Dx/Plan (1) E. coli UTI Code(s): N39.0 - URINARY TRACT INFECTION, SITE NOT SPECIFIED; B96.20 - UNSP ESCHERICHIA COLI THE CAUSE OF DISEASES CLASSD ELSWHR Status: Acute Comment: continue IV antibiotics as below, await sensitivities (2) Troponin level elevated Code(s): R79.89 - OTHER SPECIFIED ABNORMAL FINDINGS OF BLOOD CHEMISTRY Status : Acute Comment: Improved, likely due to demand ischemia (3) DM2 (diabetes mellitus, type 2) Status: Chronic Qualifiers: Comment: reasonably controlled (4) HTN (hypertension) Code(s): I10 - ESSENTIAL (PRIMARY) HYPERTENSION Status: Chronic Qualifiers: Comment: controlled (5) Shock Code(s): R57.9 - SHOCK, UNSPECIFIED Status: Resolved (6) Atrial fibrillation with RVR Code(s): I48.91 - UNSPECIFIED ATRIAL FIBRILLATION Status: Resolved Comment: rate-controlled - Plan * . Review of Systems - Review of Systems Cardiovascular: negative: chest pain, palpitations, orthopnea, paroxysmal nocturnal dyspnea, edema, light headedness Gastrointestinal: negative: Nausea, Vomiting, Abdominal Pain, Diarrhea, Constipation, Melena, Hematochezia - Medications/Allergies Allergies/Adverse Reactions: Allergies Allergy/AdvReac Type Severity Reaction Status Date / Time No Known Drug Allergies Allergy Verified 03/16/18 02:10 Medications: Current Medications Acetaminophen (Tylenol) 650 mg PO Q4H PRN PRN Reason: Headache/Fever/Mild Pain (1-3) Last Admin: 03/18/18 00:34 Dose: 650 mg Apixaban (Eliquis) 2.5 mg PO BID [facility] Last Admin: 03/19/18 09:19 Dose: 2.5 mg Aspirin (Aspirin Chewable) 81 mg PO DAILY [facility] Last Admin: 03/19/18 09:19 Dose: 81 mg Atorvastatin Calcium (Lipitor) 20 mg PO [facility] Last Admin: 03/18/18 21:01 Dose: 20 mg Benztropine Mesylate (Cogentin) 1 mg PO HS [facility] Last Admin: 03/18/18 21:02 Dose: 1 mg Cyanocobalamin (Vitamin B-12) 1,000 mcg SC Q7D [facility] Last Admin: 03/17/18 08:20 Dose: 1,000 mcg Dextrose/Water (Dextrose 50%) 25 gm SLOW IVP PRN PRN PRN Reason: Hypoglycemia Diltiazem HCl (Cardizem Sr) 60 mg PO BID [facility] Last Admin: 03/19/18 09:20 Dose: 60 mg Famotidine (Pepcid) 20 mg PO DAILY [facility] Last Admin: 03/19/18 09:20 Dose: 20 mg Gabapentin (Neurontin) 600 mg PO DAILY [facility] Last Admin: 03/19/18 09:19 Dose: 600 mg Glucagon (Glucagon) 1 mg IM PRN PRN PRN Reason: Hypoglycemia Haloperidol (Haldol) 5 mg PO HS [facility] Last Admin: 03/18/18 21:02 Dose: 5 mg Dextrose/Water (D5w) 1,000 mls @ 0 mls/hr IV .Q0M PRN PRN Reason: Hypoglycemia Norepinephrine Bitartrate (Levophed) 250 mls @ 0 mls/hr IVPB INF [facility]; Protocol Last Admin: 03/18/18 06:44 Dose: 250 mls Piperacillin Sod/Tazobactam (Sod 3.375 gm/ Sodium Chloride) 100 mls @ 200 mls/ hr IVPB 0200,0800,1400,2000 [facility] Last Admin: 03/19/18 09:14 Dose: 100 mls Sodium Chloride (Normal Saline 0.9%) 1,000 mls @ 100 mls/hr IV .Q10H [facility] Last Admin: 03/19/18 09:14 Dose: 1,000 mls Insulin Human Lispro (Humalog) 0 units SC .MILD SLIDING SCALE PRN PRN Reason: Mild Correctional Scale Last Admin: 03/18/18 11:51 Dose: 3 unit Iron/Minerals/Multivitamins (Theragran M) 1 tab PO DAILY [facility] Last Admin: 03/19/18 09:20 Dose: 1 tab Lisinopril (Zestril) 20 mg PO DAILY [facility] Last Admin: 03/19/18 09:19 Dose: 20 mg Metformin HCl (Glucophage) 500 mg PO TID-WM [facility] Last Admin: 03/19/18 09:20 Dose: 500 mg Metoprolol Tartrate (Lopressor) 75 mg PO BID [facility] Last Admin: 03/19/18 09:19 Dose: 75 mg Pioglitazone HCl (Actos) 45 mg PO DAILY [facility] Last Admin: 03/19/18 09:20 Dose: 45 mg Tamsulosin HCl (Flomax) 0.4 mg PO DAILY [facility] Last Admin: 03/19/18 09:19 Dose: 0.4 mg Tramadol HCl (Ultram) 50 mg PO Q6H PRN PRN Reason: Pain 4-6
[2018-03-19] MEDS: HumaLOG 300 UNITS/3 ML VIAL SC PRN ×2 (11:13→16:35)
--- NOTE | 2018-03-19 11:39 | PDOC.CTH ---
Cardiology Progress Note - Subjective pt. seen and eval. by me. No new events. - Objective Vital Signs Temp Pulse Resp BP BP Pulse Ox 03/19/18 07:55 97.9 F 85 18 102/57 L 99 03/19/18 04:00 98.9 F 74 14 103/55 L 98 03/19/18 00:55 76 135/65 Weight 178 lb 1.6 oz 03/18/18 03/19/18 03/20/18 06:59 06:59 06:59 Intake Total 2500 Output Total 1950 2440 Balance -1949 60 - Physical Examination General/Neuro: alert & oriented x3 Neck: no JVD present Lungs: CTA Heart: other: (irreg/irreg) Abdomen: soft - Labs Result Diagrams: 03/19/18 05:02 03/19/18 05:02 Troponin/CKMB CK-MB (CK-2) 1.9 ng/mL (0-6.6) 03/15/18 18:30 Troponin I 0.184 ng/mL (< 0.028) H 03/18/18 13:45 - Assessment/Plan 1. Paroxysmal Afib RVR. Remains in Afib. rate controlled. 2. DMT2 3. HTN. Hypotensive Tuesday PM. Responded to IV fluids and pressores. 4. UTI- on antibiotics. 5. Demand ischemia, increased T.I.
[2018-03-19] MEDS ORDERED: DOPamine/D5W 400 mg/250 ml PREMIX ONE (14:05)
[2018-03-19] MEDS ORDERED: Sodium Chloride 0.9% 1,000 ML IV SCH (16:00)
[2018-03-19] MEDS ORDERED: DOPamine 400 MG/D5W 250 ML 250 ML IVPB PRN (18:15)
--- NOTE | 2018-03-19 20:52 | PRG ---
DATE OF SERVICE: 03/19/2018 SUBJECTIVE: Mr. Modi was transferred back to the Intensive Care Unit. He had a drop in his blood p ressure after receiving his beta celeste this morning, I am told. He says he feels fine. His pressure is in the 70s, he is on very low dose of dopamine. We are givin g him fluids, trying to wean him off dopamine. I would like to avoid placing a central line and anticipated his dopamine use will be short. OBJECTIVE: VITAL SIGNS: He is afebrile, heart rate 61, respiratory rate 18, oximetry is 98. Blood pressure has been in the 80s. LUNGS: Clear. CARDIOVASCULAR: Regular rhythm. ABDOMEN: Soft. EXTREMITIES: Without edema. LABORATORY DATA: White count 5.3, hemoglobin 10.0, platelets 104,000. Sodium 138, potassium 3.7, ch loride 108, bicarbonate 22, BUN 25, creatinine 1.12. IMPRESSION: 1. Hypotension likely related to his Lopressor 2. Extreme deconditioning ambulating with a walker. 3. History of atrial fibrillation with a rate of over 150 when he was transferred here. He has also had atrial flutter. 4. History of cervical spine surgery last year. 5. History of urinary retention in 2017, seen by Dr. Foster. 6. History of diabetic ulcer requiring incision and drainage. PLAN: Continue his gentle hydration, observation in the Critical Care Unit.
[2018-03-19] MEDS: Atorvastatin Calcium 20 MG TAB PO SCH (21:58)
[2018-03-19] MEDS: Benztropine 1 MG TAB PO SCH (21:58)
[2018-03-19] MEDS: Haloperidol 5 MG TAB PO SCH (21:58)
[2018-03-19] MEDS ORDERED: Digoxin 0.5 MG/2 ML AMP SLOW IVP SCH (23:30)
[2018-03-20] MEDS: Sodium Chloride 0.9% 1,000 ML IV SCH ×3 (02:32→22:47)
[2018-03-20] MEDS: Piperacillin/Tazobactam 3.375 GM in Sodium Chloride 0.9% 100 ML IVPB SCH ×3 (03:15→22:46)
[2018-03-20 04:56] LABS: #Eosinphils 0.1 thou/uL (0.0-0.7); #Lymphocytes 0.8 thou/uL (1.20-3.40); #Monocytes 0.4 thou/uL (0.11-0.59); #Neutrophils 3.2 thou/uL (1.40-6.50); %Basophils 0.4 % (0.0-1.0); %Eosinophils 2.5 % (0.0-10.0); %Lymphocytes 16.9 % (21.0-51.0); %Monocytes 9.2 % (0.0-10.0); Hemoglobin 10.5 g/dL (14.0-18.0); Mean Corpuscular HGB CONC 33.8 g/dL (32.0-36.0); Mean Corpuscular Hemoglobin 32.1 pg (27.0-31.0); Mean Corpuscular Volume 95.2 fL (78.0-98.0); Mean Platelet Volume 8.1 fL (7.4-10.4); Platelet Count 118 thou/uL (130-400); RBC Distribution Width 11.9 % (11.5-14.5); Red Blood Cell (RBC) Count 3.26 mill/uL (4.70-6.10); White Blood Cell (WBC) Count 4.6 thou/uL (4.8-10.8)
[2018-03-20 05:17] LABS: Anion Gap 12 mmol/L (10-20); BUN (Urea Nitrogen) 28 mg/dL (8.4-25.7); Calc. Creatinine Clearance 55 mL/min (70-130); Calcium 7.5 mg/dL (7.8-10.44); Carbon Dioxide 20 mmol/L (23-31); Chloride 111 mmol/L (98-107); Estimated GFR-MDRD 51; Glucose 148 mg/dL (83-110); Potassium 3.7 mmol/L (3.5-5.1); Sodium 139 mmol/L (136-145)
[2018-03-20] MEDS ORDERED: Diltiazem HCl 125 MG, Admixture Fee 1 EACH in Sodium Chloride 0.9% 100 ML IVPB SCH (08:30)
[2018-03-20] MEDS: Tamsulosin HCl 0.4 MG CAP PO SCH (08:37)
[2018-03-20] MEDS: Lisinopril 20 MG TAB PO SCH (08:37)
[2018-03-20] MEDS: Apixaban 2.5 MG TAB PO SCH ×2 (08:37→20:22)
[2018-03-20] MEDS: Gabapentin 300 MG CAP PO SCH (08:37)
[2018-03-20] MEDS: Diltiazem HCl SR 60 mg Capsule PO SCH (08:38)
[2018-03-20] MEDS: Famotidine 20 MG TAB PO SCH (08:38)
[2018-03-20] MEDS: Multivitamin W/ Minerals 1 TAB PO SCH (08:38)
[2018-03-20] MEDS: Metoprolol Tartrate 25 MG TAB PO SCH (08:38)
[2018-03-20] MEDS: metFORMIN 500 MG TAB PO SCH ×3 (08:40→17:16)
[2018-03-20] MEDS: Pioglitazone HCl 45 MG TAB PO SCH (08:53)
--- NOTE | 2018-03-20 11:14 | PRG ---
DATE OF SERVICE: 03/20/2018 SUBJECTIVE: Isaiah Modi has no complaints. He has had episodes of rapid atrial fibrillation, so he wa s started on a Cardizem drip IV. He is on p.o. Cardizem 60 mg twice a day. Unfortunately, Mr. Modi 's blood pressure was still on his MAR this morning and this was given. That hopefully, with close m onitoring, he will not become as hypotensive as he did yesterday. This has been removed from his MAR . It would be reasonable to start it back, but it has to be at a lower dose. OBJECTIVE: LUNGS: Clear. HEART: Irregularly irregular. ABDOMEN: Soft and nontender. EXTREMITIES: Without edema. LABORATORY DATA: White count 4.6, hemoglobin 10.5, platelets 118. Sodium 139, potassium 3.7, chlori de 111, bicarbonate 20, BUN 28, creatinine 1.36. IMPRESSION: Recurrent hypotension that is in part medication related. I doubt he has a component of adrenal crisis, but I will check a cortisol level. He will remain in the critical care unit for now. Atrial fibrillation is still an issue.
--- NOTE | 2018-03-20 12:08 | PDOC.CTH ---
Cardiology Progress Note - Subjective He feels well. No chest pain, tightness ,pressure, SOB. Currently rate controlled. - Objective Vital Signs Temp BP Pulse Ox 03/20/18 10:59 97.9 F 03/20/18 08:37 128/67 03/20/18 07:41 97 03/20/18 07:00 98.5 F Weight 178 lb 14.4 oz 03/19/18 03/20/18 03/21/18 06:59 06:59 06:59 Intake Total 2500 3622.9 200 Output Total 2440 1017 575 Balance 60 2605.9 -375 - Physical Examination General/Neuro: alert & oriented x3, NAD Neck: no JVD present Lungs: CTA, unlabored respirations Heart: other: (Irregular) Abdomen: NT/ND Extremities: other: (no edema.) - Telemetry Telemetry Rhythm: Afib HR 60's to 150's - Labs Result Diagrams: 03/20/18 03:44 03/20/18 03:44 Troponin/CKMB CK-MB (CK-2) 1.9 ng/mL (0-6.6) 03/15/18 18:30 Troponin I 0.184 ng/mL (< 0.028) H 03/18/18 13:45 - Assessment/Plan 1. Paroxysmal Afib RVR. Remains in Afib. rate controlled at this time. 2. DMT2 3. HTN. 4. UTI- on antibiotics. 5. Elevated troponin. PLAN: - Will continue BB dose and will add Digoxin PO daily. - One dose now of PO dig. - Will hold off on PO dilt for now. - May transfer to telemetry floor.
--- NOTE | 2018-03-20 15:01 | PDOC.PN ---
- Subjective Encounter Start Date: 03/20/18 Encounter Start Time: 07:20 Pt seen for followup re: E. coli UTI. Denies chest pain, shortness of breath, fevers or chills. - Objective Resuscitation Status: Resuscitation Status FULL:Full Resuscitation MAR Reviewed: Yes Vital Signs & Weight: Vital Signs (12 hours) Temp BP Pulse Ox 03/20/18 10:59 97.9 F 03/20/18 08:37 128/67 03/20/18 07:41 97 03/20/18 07:00 98.5 F Weight Weight 178 lb 14.4 oz Most Recent Monitor Data Heart Rate from ECG 64 NIBP 121/75 NIBP BP-Mean 90 Respiration from ECG 22 SpO2 99 I&O: 03/19/18 03/20/18 03/21/18 06:59 06:59 06:59 Intake Total 2500 3622.9 200 Output Total 2440 1017 715 Balance 60 2605.9 -515 Result Diagrams: 03/20/18 03:44 03/20/18 03:44 Additional Labs: Accuchecks 03/20/18 03/19/18 03/19/18 11:04 21:57 21:38 POC Glucose 144 H 155 H 378 H 03/19/18 16:33 POC Glucose 227 H EKG Reviewed by me: Yes (Tele: ruth ann richardson with RVR) Phys Exam - Physical Examination Constitutional: NAD HEENT: moist MMs Neck: supple Respiratory: clear to auscultation bilateral Cardiovascular: irregular Gastrointestinal: soft Neurological: moves all 4 limbs Psychiatric: normal affect Dx/Plan (1) E. coli UTI Code(s): N39.0 - URINARY TRACT INFECTION, SITE NOT SPECIFIED; B96.20 - UNSP ESCHERICHIA COLI THE CAUSE OF DISEASES CLASSD ELSWHR Status: Acute Comment: dc Zosyn, start IV ceftriaxone (2) Shock Code(s): R57.9 - SHOCK, UNSPECIFIED Status: Resolved Comment: Pt transfered to CCU yesterday for low blood pressure. Likely due to beta celeste. (3) Atrial fibrillation with RVR Code(s): I48.91 - UNSPECIFIED ATRIAL FIBRILLATION Status: Acute Comment: cardiology following (4) Troponin level elevated Code(s): R79.89 - OTHER SPECIFIED ABNORMAL FINDINGS OF BLOOD CHEMISTRY Status : Acute Comment: likely due to demand ischemia (5) DM2 (diabetes mellitus, type 2) Status: Chronic Qualifiers: Comment: reasonably controlled (6) HTN (hypertension) Code(s): I10 - ESSENTIAL (PRIMARY) HYPERTENSION Status: Chronic Qualifiers: Comment: controlled - Plan * . Review of Systems - Review of Systems Respiratory: negative: Cough, Shortness of Breath, SOB with Excertion, Pleuritic Pain, Wheezing Cardiovascular: negative: chest pain, palpitations, orthopnea, paroxysmal nocturnal dyspnea, edema, light headedness - Medications/Allergies Allergies/Adverse Reactions: Allergies Allergy/AdvReac Type Severity Reaction Status Date / Time No Known Drug Allergies Allergy Verified 03/16/18 02:10 Medications: Current Medications Acetaminophen (Tylenol) 650 mg PO Q4H PRN PRN Reason: Headache/Fever/Mild Pain (1-3) Last Admin: 03/18/18 00:34 Dose: 650 mg Apixaban (Eliquis) 2.5 mg PO BID [facility] Last Admin: 03/20/18 08:37 Dose: 2.5 mg Aspirin (Aspirin Chewable) 81 mg PO DAILY [facility] Last Admin: 03/20/18 08:37 Dose: 81 mg Atorvastatin Calcium (Lipitor) 20 mg PO HS [facility] Last Admin: 03/19/18 21:58 Dose: 20 mg Benztropine Mesylate (Cogentin) 1 mg PO HS [facility] Last Admin: 03/19/18 21:58 Dose: 1 mg Cyanocobalamin (Vitamin B-12) 1,000 mcg SC Q7D [facility] Last Admin: 03/17/18 08:20 Dose: 1,000 mcg Dextrose/Water (Dextrose 50%) 25 gm SLOW IVP PRN PRN PRN Reason: Hypoglycemia Digoxin (Lanoxin) 0.25 mg PO DAILY [facility] Diltiazem HCl (Cardizem) 30 mg PO BID [facility] Famotidine (Pepcid) 20 mg PO DAILY [facility] Last Admin: 03/20/18 08:38 Dose: 20 mg Gabapentin (Neurontin) 600 mg PO DAILY [facility] Last Admin: 03/20/18 08:37 Dose: 600 mg Glucagon (Glucagon) 1 mg IM PRN PRN PRN Reason: Hypoglycemia Haloperidol (Haldol) 5 mg PO HS [facility] Last Admin: 03/19/18 21:58 Dose: 5 mg Dextrose/Water (D5w) 1,000 mls @ 0 mls/hr IV .Q0M PRN PRN Reason: Hypoglycemia Piperacillin Sod/Tazobactam (Sod 3.375 gm/ Sodium Chloride) 100 mls @ 200 mls/ hr IVPB 0200,0800,1400,2000 [facility] Last Admin: 03/20/18 08:36 Dose: 100 mls Insulin Human Lispro (Humalog) 0 units SC .MILD SLIDING SCALE PRN PRN Reason: Mild Correctional Scale Last Admin: 03/19/18 16:35 Dose: 3 unit Iron/Minerals/Multivitamins (Theragran M) 1 tab PO DAILY [facility] Last Admin: 03/20/18 08:38 Dose: 1 tab Metformin HCl (Glucophage) 500 mg PO TID-WM [facility] Last Admin: 03/20/18 11:58 Dose: 500 mg Pioglitazone HCl (Actos) 45 mg PO DAILY [facility] Last Admin: 03/20/18 08:53 Dose: 45 mg Tamsulosin HCl (Flomax) 0.4 mg PO DAILY [facility] Last Admin: 03/20/18 08:37 Dose: 0.4 mg Tramadol HCl (Ultram) 50 mg PO Q6H PRN PRN Reason: Pain 4-6
[2018-03-20] MEDS ORDERED: cefTRIAXone\\ROCEPHIN 1 GM in Sodium Chloride 0.9% 100 ML IVPB SCH (16:00)
[2018-03-20] MEDS: Benztropine 1 MG TAB PO SCH (20:22)
[2018-03-20] MEDS: Atorvastatin Calcium 20 MG TAB PO SCH (20:22)
[2018-03-20] MEDS: Haloperidol 5 MG TAB PO SCH (20:22)
[2018-03-21] MEDS: Sodium Chloride 0.9% 1,000 ML IV SCH ×4 (02:02→23:23)
[2018-03-21] MEDS: metFORMIN 500 MG TAB PO SCH ×3 (08:33→15:56)
[2018-03-21] MEDS: Gabapentin 300 MG CAP PO SCH (08:33)
[2018-03-21] MEDS: Apixaban 2.5 MG TAB PO SCH ×2 (08:33→20:38)
[2018-03-21] MEDS: Digoxin 0.25 MG TAB PO SCH (08:34)
[2018-03-21] MEDS: Tamsulosin HCl 0.4 MG CAP PO SCH (08:34)
[2018-03-21] MEDS: Famotidine 20 MG TAB PO SCH (08:35)
[2018-03-21] MEDS: Multivitamin W/ Minerals 1 TAB PO SCH (08:35)
[2018-03-21] MEDS: Pioglitazone HCl 45 MG TAB PO SCH (08:35)
--- NOTE | 2018-03-21 09:13 | PQF ---
DATE: 03-21-18 ATTN: DR. ALYSON HUANG / DR. REY Please exercise your independent, professional judgment in responding to the clarification form. Clinical indicators are provided on the bottom of this form for your review Please check appropriate box(s): [ ] Hypovolemic Shock [ ] Septic Shock [ ] Other diagnosis [ x ] Unable to determine In addition, please specify: Present on Admission (POA): [ ] Yes [ x] No [ ] Unable to determine For continuity of documentation, please document condition throughout progress notes and discharge summary. Thank You. CLINICAL INDICATORS - SIGNS / SYMPTOMS / LABS CONSULT NOTE DR. MARADIAGA 03-18-18: HYPOTENSIVE LAST PM. RESPONDED TO IVF AND PRESSORS. HE IS STILL ON IV LEVOPHED. TAPERING OFF. TRANSFER TO [facility] WHEN BP STABLE OFF PRESSORS. PN DR. VALDEZ 03-18-18: PT SEEN FOR F/U RE: SHOCK, ETIOLOGY UNCLEAR. PT HAS BEEN OFF PRESSORS BECAUSE HE DID NOT RESPOND TO FLUIDS. BLOOD CULTURES SENT, PT IS ON EMPIRIC ANTIBIOTICS FOR POSSIBLE INFECTIOUS ETIOLOGY CONSULT NOTE DR. LORENZO 03-18-18: HE HAS BEEN HYDRATED AND IS NOW WEANED OFF LEVOPHED. HYPOTENSION LIKELY 2/2 TO DIURESIS EVENT NOTE 03-19-18: BP: 64/41, HR 56, BP: 77/44, 67/44, 65/38, DOPAMINE STARTED CONSULT NOTE DR. LORENZO 03-19-18: HYPOTENSION LIKELY R/T HIS LOPRESSOR RISK FACTORS: CONSULT NOTE DR. LORENZO 03-19-18: HYPOTENSION LIKELY R/T HIS LOPRESSOR CONSULT NOTE DR. LORENZO 03-18-18: HE HAS BEEN HYDRATED AND IS NOW WEANED OFF LEVOPHED. HYPOTENSION LIKELY 2/2 TO DIURESIS TREATMENTS: BJ CONSULT 03-19-18: CONTINUE HIS GENTLE HYDRATION OBS IN CCU, DOPAMINE, WE ARE GIVING HIM FLUIDS (This form is maintained as a part of the permanent medical record) 2015 [employer]. All Rights Reserved LEONARDO [email or web address] Office: [phone] JACY
--- NOTE | 2018-03-21 12:59 | PDOC.CTH ---
Cardiology Progress Note - Subjective BP better once ACEI stopped. No new issues. - Objective Vital Signs Temp Pulse Pulse Ox 03/21/18 11:48 98.6 F 03/21/18 10:54 98.6 F 03/21/18 08:34 166 H 03/21/18 07:57 97 03/21/18 07:00 98.3 F 03/21/18 04:00 97.6 F Weight 198 lb 3.129 oz 03/20/18 03/21/18 03/22/18 06:59 06:59 06:59 Intake Total 3622.9 3067.1 660 Output Total 1017 1780 293 Balance 2605.9 1287.1 367 - Physical Examination General/Neuro: alert & oriented x3, NAD Neck: no JVD present Lungs: unlabored respirations Heart: other: (Irregluiar) Abdomen: NT/ND Extremities: other: (no edema) - Telemetry Telemetry Rhythm: Afib HR 90-120 - Labs Result Diagrams: 03/20/18 03:44 03/20/18 03:44 Troponin/CKMB CK-MB (CK-2) 1.9 ng/mL (0-6.6) 03/15/18 18:30 Troponin I 0.184 ng/mL (< 0.028) H 03/18/18 13:45 - Assessment/Plan 1. Paroxysmal Afib RVR. Remains in Afib. RVR currently. 2. DMT2 3. HTN. 4. UTI- on antibiotics. 5. Elevated troponin. Demand. PLAN: - On lower dose CCB and PO Dig. - Will add Amiodarone drip and possible DCCV in next one or two days. - May transfer to telemetry floor.
[2018-03-21] MEDS ORDERED: Amiodarone In Dextrose 200 ML IVPB SCH (13:00)
[2018-03-21] MEDS: Amiodarone HCl 450 MG, Admixture Fee 1 EACH in Dextrose 5% in Water 250 ML IVPB SCH ×2 (13:28→20:50)
--- NOTE | 2018-03-21 13:44 | PDOC.PN ---
- Subjective Encounter Start Date: 03/21/18 Encounter Start Time: 13:43 Says he feels well. Denies CP or SOB. Eating and drinking well. Says he gets up and around at home with a walker. - Objective Resuscitation Status: 03/21/18 12:15 Resuscitation Status Routine Resuscitation Status: FULL: Full Resuscitation Discussed with: per previous order MAR Reviewed: Yes Vital Signs & Weight: Vital Signs (12 hours) Temp Pulse Pulse Ox 03/21/18 11:48 98.6 F 03/21/18 10:54 98.6 F 03/21/18 08:34 166 H 03/21/18 07:57 97 03/21/18 07:00 98.3 F 03/21/18 04:00 97.6 F Weight Weight 198 lb 3.129 oz Most Recent Monitor Data Heart Rate from ECG 92 NIBP 143/82 NIBP BP-Mean 102 Respiration from ECG 16 SpO2 96 I&O: 03/20/18 03/21/18 03/22/18 06:59 06:59 06:59 Intake Total 3622.9 3067.1 900 Output Total 1017 1780 338 Balance 2605.9 1287.1 562 Result Diagrams: 03/20/18 03:44 03/20/18 03:44 Additional Labs: Accuchecks 03/21/18 03/21/18 03/20/18 10:52 06:06 20:33 POC Glucose 126 H 106 129 H 03/20/18 16:07 POC Glucose 142 H Phys Exam - Physical Examination Constitutional: NAD Respiratory: no wheezing, no rales, no rhonchi Cardiovascular: no significant murmur Gastrointestinal: soft, non-tender, no distention, positive bowel sounds Musculoskeletal: no edema Neurological: non-focal Psychiatric: normal affect Dx/Plan (1) Atrial fibrillation with RVR Code(s): I48.91 - UNSPECIFIED ATRIAL FIBRILLATION Status: Acute Comment: cardiology following (2) E. coli UTI Code(s): N39.0 - URINARY TRACT INFECTION, SITE NOT SPECIFIED; B96.20 - UNSP ESCHERICHIA COLI THE CAUSE OF DISEASES CLASSD ELSWHR Status: Acute Comment: dc Zosyn, start IV ceftriaxone (3) Diabetes mellitus Code(s): E11.9 - TYPE 2 DIABETES MELLITUS WITHOUT COMPLICATIONS Status: Acute (4) Generalized weakness Code(s): R53.1 - WEAKNESS Status: Acute (5) HLD (hyperlipidemia) Code(s): E78.5 - HYPERLIPIDEMIA, UNSPECIFIED Status: Acute (6) Thrombocytopenia Code(s): D69.6 - THROMBOCYTOPENIA, UNSPECIFIED Status: Acute (7) Bipolar disorder Code(s): F31.9 - BIPOLAR DISORDER, UNSPECIFIED Status: Chronic Qualifiers: Active/Remission status: in full remission (8) DM2 (diabetes mellitus, type 2) Status: Chronic Qualifiers: Comment: reasonably controlled (9) HTN (hypertension) Code(s): I10 - ESSENTIAL (PRIMARY) HYPERTENSION Status: Chronic Qualifiers: Hypertension type: essential hypertension Qualified Code(s): I10 - Essential (primary) hypertension - Plan * Rate borderline controlled. On amio gtt with plans for DCCV in a day or two if he does not convert. Continue with the Eliquis. * Continue Rocephin for UTI. No good oral option except quinolones, which are not the best idea given the cardiac situation. * Continue meds for bipolar disorder. * Blood sugars are doing well. * Platelets stable.
[2018-03-21] MEDS: Ciprofloxacin 500 MG TAB PO SCH (20:38)
[2018-03-21] MEDS: Benztropine 1 MG TAB PO SCH (20:38)
[2018-03-21] MEDS: Atorvastatin Calcium 20 MG TAB PO SCH (20:38)
[2018-03-21] MEDS: Haloperidol 5 MG TAB PO SCH (20:38)
[2018-03-21] MEDS: HumaLOG 300 UNITS/3 ML VIAL SC PRN (20:50)
[2018-03-22 05:09] LABS: #Eosinphils 0.1 thou/uL (0.0-0.7); #Lymphocytes 0.7 thou/uL (1.20-3.40); #Monocytes 0.4 thou/uL (0.11-0.59); #Neutrophils 2.9 thou/uL (1.40-6.50); %Basophils 0.4 % (0.0-1.0); %Eosinophils 1.6 % (0.0-10.0); %Lymphocytes 17.5 % (21.0-51.0); %Monocytes 9.6 % (0.0-10.0); %Neutrophils 70.9 % (42.0-75.0); Hemoglobin 10.4 g/dL (14.0-18.0); Mean Corpuscular HGB CONC 33.7 g/dL (32.0-36.0); Mean Corpuscular Hemoglobin 31.8 pg (27.0-31.0); Mean Corpuscular Volume 94.3 fL (78.0-98.0); Platelet Count 119 thou/uL (130-400); Red Blood Cell (RBC) Count 3.29 mill/uL (4.70-6.10); White Blood Cell (WBC) Count 4.2 thou/uL (4.8-10.8)
[2018-03-22 05:16] LABS: Anion Gap 11 mmol/L (10-20); BUN (Urea Nitrogen) 14 mg/dL (8.4-25.7); Calc. Creatinine Clearance 112 mL/min (70-130); Carbon Dioxide 22 mmol/L (23-31); Chloride 111 mmol/L (98-107); Estimated GFR-MDRD Greater than 90; Glucose 128 mg/dL (83-110); Potassium 3.8 mmol/L (3.5-5.1); Sodium 140 mmol/L (136-145)
[2018-03-22] MEDS: Ciprofloxacin 500 MG TAB PO SCH ×2 (05:34→20:41)
[2018-03-22] MEDS: Sodium Chloride 0.9% 1,000 ML IV SCH ×2 (05:35→20:41)
[2018-03-22] MEDS: Digoxin 0.25 MG TAB PO SCH (08:11)
[2018-03-22] MEDS: Multivitamin W/ Minerals 1 TAB PO SCH (08:11)
[2018-03-22] MEDS: Apixaban 2.5 MG TAB PO SCH ×2 (08:11→20:52)
[2018-03-22] MEDS: Famotidine 20 MG TAB PO SCH (08:12)
[2018-03-22] MEDS: Gabapentin 300 MG CAP PO SCH (08:12)
[2018-03-22] MEDS: Tamsulosin HCl 0.4 MG CAP PO SCH (08:12)
[2018-03-22] MEDS: metFORMIN 500 MG TAB PO SCH ×3 (08:13→17:57)
[2018-03-22] MEDS: Pioglitazone HCl 45 MG TAB PO SCH (08:13)
--- NOTE | 2018-03-22 10:22 | PRG ---
DATE OF SERVICE: 03/21/2018 OBJECTIVE: VITAL SIGNS: Heart rates in the 90s, blood pressure 130/72, respiratory rate 17, oximetry is 92. LUNGS: Clear. HEART: Regular rhythm. ABDOMEN: Soft. He did have one low blood pressure last night, but all of the other blood pressures have been over 100 systolic. He had an 82/55 at 3 in the morning. His Catapres patch was removed today. With that off, he may tolerate re- institution of his beta-celeste and increased dose of Cardizem. There is no new lab today. He should be able to move out of the critical care unit to a monitor bed. Job ID: [id number] MTDD
--- NOTE | 2018-03-22 12:31 | PDOC.CTH ---
Cardiology Progress Note - Subjective He is doing better. His HR is better controlled but still RVR. HE has no complaints. - Objective Vital Signs Temp Pulse Resp BP Pulse Ox 03/22/18 10:16 98.7 F 101 H 16 143/80 H 97 03/22/18 09:00 98.7 F 03/22/18 08:11 98 03/22/18 07:42 98 03/22/18 07:00 98.5 F 03/22/18 04:00 98.9 F Weight 198 lb 10.184 oz 03/21/18 03/22/18 03/23/18 06:59 06:59 06:59 Intake Total 3067.1 4107 240 Output Total 1780 1918 135 Balance 1287.1 2189 105 - Physical Examination General/Neuro: alert & oriented x3, NAD Neck: no JVD present Lungs: CTA, unlabored respirations Heart: other: (Irreglular) Abdomen: NT/ND Extremities: + femoral B (no edema) - Telemetry Telemetry Rhythm: Afib HR 90-120 - Labs Result Diagrams: 03/22/18 04:02 03/22/18 04:02 Troponin/CKMB CK-MB (CK-2) 1.9 ng/mL (0-6.6) 03/15/18 18:30 Troponin I 0.184 ng/mL (< 0.028) H 03/18/18 13:45 - Assessment/Plan 1. Paroxysmal Afib RVR. Remains in RVR. 2. DMT2 3. HTN. 4. UTI on antibiotics. 5. Elevated troponin. Demand ischemia.. PLAN: - On lower dose CCB and PO Dig. - Continue Amiodarone drip, plan to do KATIE/DCCV tomorrow if still in RVR. - Will follow.
--- NOTE | 2018-03-22 12:34 | PDOC.PN ---
- Subjective Encounter Start Date: 03/22/18 Encounter Start Time: 11:45 Subjective: awake, watching tv -: no sob or chest pain or palp (hr on monitor is 130's) - Objective Resuscitation Status - Order Detail: 03/21/18 12:15 Resuscitation Status Routine Resuscitation Status: FULL: Full Resuscitation Discussed with: per previous order MAR Reviewed: Yes Vital Signs & Weight: Vital Signs (12 hours) Temp Pulse Resp BP Pulse Ox 03/22/18 10:16 98.7 F 101 H 16 143/80 H 97 03/22/18 09:00 98.7 F 03/22/18 08:11 98 03/22/18 07:42 98 03/22/18 07:00 98.5 F 03/22/18 04:00 98.9 F Weight Weight 198 lb 10.184 oz Most Recent Monitor Data Heart Rate from ECG 77 NIBP 143/80 NIBP BP-Mean 101 Respiration from ECG 17 SpO2 96 I&O: 03/21/18 03/22/18 03/23/18 06:59 06:59 06:59 Intake Total 3067.1 4107 240 Output Total 1780 1918 135 Balance 1287.1 2189 105 Result Diagrams: 03/22/18 04:02 03/22/18 04:02 Additional Labs: Accuchecks 03/22/18 03/22/18 03/21/18 11:20 05:33 20:43 POC Glucose 125 H 118 H 155 H 03/21/18 15:57 POC Glucose 145 H Phys Exam - Physical Examination HEENT: PERRLA, sclera anicteric Neck: no JVD, supple Respiratory: no wheezing, no rales Cardiovascular: no significant murmur, irregular Gastrointestinal: soft, non-tender, positive bowel sounds Musculoskeletal: no edema, pulses present Neurological: non-focal, moves all 4 limbs Dx/Plan (1) Atrial fibrillation with RVR Code(s): I48.91 - UNSPECIFIED ATRIAL FIBRILLATION Status: Acute (2) Demand ischemia of myocardium Code(s): I24.8 - OTHER FORMS OF ACUTE ISCHEMIC HEART DISEASE Status: Acute (3) UTI (urinary tract infection) Status: Acute Qualifiers: Urinary tract infection type: acute cystitis Hematuria presence: without hematuria Qualified Code(s): N30.00 - Acute cystitis without hematuria (4) HLD (hyperlipidemia) Code(s): E78.5 - HYPERLIPIDEMIA, UNSPECIFIED Status: Chronic Qualifiers: Hyperlipidemia type: unspecified Qualified Code(s): E78.5 - Hyperlipidemia , unspecified (5) Bipolar disorder Code(s): F31.9 - BIPOLAR DISORDER, UNSPECIFIED Status: Chronic Qualifiers: Active/Remission status: remission status unspecified Qualified Code(s): F31.9 - Bipolar disorder, unspecified (6) DM2 (diabetes mellitus, type 2) Status: Chronic Qualifiers: Diabetes mellitus endocrinology physician insulin use: without endocrinology physician use Diabetes mellitus complication status: with unspecified complications Qualified Code(s) : E11.8 - Type 2 diabetes mellitus with unspecified complications (7) HTN (hypertension) Code(s): I10 - ESSENTIAL (PRIMARY) HYPERTENSION Status: Chronic Qualifiers: Hypertension type: essential hypertension Qualified Code(s): I10 - Essential (primary) hypertension (8) Physical deconditioning Code(s): R53.81 - OTHER MALAISE Status: Chronic (9) PAD (peripheral artery disease) Code(s): I73.9 - PERIPHERAL VASCULAR DISEASE, UNSPECIFIED Status: Chronic (10) BPH (benign prostatic hyperplasia) Code(s): N40.0 - BENIGN PROSTATIC HYPERPLASIA WITHOUT LOWER URINRY TRACT SYMP Status: Chronic Qualifiers: Lower urinary tract symptom presence: symptoms present Lower urinary tract symptom detail: unspecified Qualified Code(s): N40.1 - Benign prostatic hyperplasia with lower urinary tract symptoms - Plan is on amiodarone, dig, cardizem po bid, asp, eliquis -: on ceftriaxone for uti -: will likely need cardioversion with his rate still high despite multiple me -: is on glucophage, actos, flomax, haldol 5mg HS along with cogentin -: will need swing/snf for dc plan * . Review of Systems - Medications/Allergies Allergies/Adverse Reactions: Allergies Allergy/AdvReac Type Severity Reaction Status Date / Time No Known Drug Allergies Allergy Verified 03/16/18 02:10 Medications: Current Medications Acetaminophen (Tylenol) 650 mg PO Q4H PRN PRN Reason: Headache/Fever/Mild Pain (1-3) Last Admin: 03/18/18 00:34 Dose: 650 mg Apixaban (Eliquis) 2.5 mg PO BID [facility] Last Admin: 03/22/18 08:11 Dose: 2.5 mg Aspirin (Aspirin Chewable) 81 mg PO DAILY [facility] Last Admin: 03/22/18 08:11 Dose: 81 mg Atorvastatin Calcium (Lipitor) 20 mg PO HS [facility] Last Admin: 03/21/18 20:38 Dose: 20 mg Benztropine Mesylate (Cogentin) 1 mg PO HS [facility] Last Admin: 03/21/18 20:38 Dose: 1 mg Ciprofloxacin (Cipro) 500 mg PO 0600,1999 [facility] Last Admin: 03/22/18 05:34 Dose: 500 mg Cyanocobalamin (Vitamin B-12) 1,000 mcg SC Q7D [facility] Last Admin: 03/17/18 08:20 Dose: 1,000 mcg Dextrose/Water (Dextrose 50%) 25 gm SLOW IVP PRN PRN PRN Reason: Hypoglycemia Digoxin (Lanoxin) 0.25 mg PO DAILY [facility] Last Admin: 03/22/18 08:11 Dose: 0.25 mg Diltiazem HCl (Cardizem) 30 mg PO BID [facility] Last Admin: 03/22/18 08:12 Dose: 30 mg Famotidine (Pepcid) 20 mg PO DAILY [facility] Last Admin: 03/22/18 08:12 Dose: 20 mg Gabapentin (Neurontin) 600 mg PO DAILY [facility] Last Admin: 03/22/18 08:12 Dose: 600 mg Glucagon (Glucagon) 1 mg IM PRN PRN PRN Reason: Hypoglycemia Haloperidol (Haldol) 5 mg PO [facility] Last Admin: 03/21/18 20:38 Dose: 5 mg Dextrose/Water (D5w) 1,000 mls @ 0 mls/hr IV .Q0M PRN PRN Reason: Hypoglycemia Sodium Chloride (Normal Saline 0.9%) 1,000 mls @ 100 mls/hr IV .Q10H [facility] Last Admin: 03/22/18 05:35 Dose: 1,000 mls Amiodarone HCl 450 mg/Miscellaneous Medication 1 each/ Dextrose/Water 259 mls @ 0 mls/hr IVPB INF [facility]; Protocol Last Admin: 03/21/18 20:50 Dose: 259 mls Insulin Human Lispro (Humalog) 0 units SC .MILD SLIDING SCALE PRN PRN Reason: Mild Correctional Scale Last Admin: 03/21/18 20:50 Dose: 2 unit Iron/Minerals/Multivitamins (Theragran M) 1 tab PO DAILY [facility] Last Admin: 03/22/18 08:11 Dose: 1 tab Metformin HCl (Glucophage) 500 mg PO TID-[facility] Last Admin: 03/22/18 12:12 Dose: 500 mg Pioglitazone HCl (Actos) 45 mg PO DAILY [facility] Last Admin: 03/22/18 08:13 Dose: 45 mg Tamsulosin HCl (Flomax) 0.4 mg PO DAILY [facility] Last Admin: 03/22/18 08:12 Dose: 0.4 mg Tramadol HCl (Ultram) 50 mg PO Q6H PRN PRN Reason: Pain 4-6
--- NOTE | 2018-03-22 17:30 | PRG ---
DATE OF SERVICE: 03/22/2018 SUBJECTIVE: Mr. Modi has no new complaints. OBJECTIVE: VITAL SIGNS: He is afebrile. Heart rate 101, respiratory rate 16, oximetry is 97% on room air, and blood pressure 143/80. Intake and output positive 2189. LUNGS: Clear. HEART: Regular rhythm. ABDOMEN: Soft. He is still in atrial fibrillation. Dr. Ramirez tells me he is tentatively thinking about cardioversion later this week. LABORATORY DATA: White count is 4.2, hemoglobin 10.4, and platelets 119. Sodium 140, potassium 3.8, chloride 111, bicarb 22, BUN 14, and creatinine 0.75. IMPRESSION: 1. Episodic hypotension. 2. Atrial fibrillation. His blood pressure appears to stabilize. He is tentatively on the schedule for cardioversion if he does not spontaneously convert. We will continue to follow. Job ID: [id number]
[2018-03-22] MEDS: Benztropine 1 MG TAB PO SCH (20:41)
[2018-03-22] MEDS: Atorvastatin Calcium 20 MG TAB PO SCH (20:41)
[2018-03-22] MEDS: Haloperidol 5 MG TAB PO SCH (20:42)
[2018-03-23 05:05] LABS: #Eosinphils 0.1 thou/uL (0.0-0.7); #Lymphocytes 0.8 thou/uL (1.20-3.40); #Monocytes 0.5 thou/uL (0.11-0.59); #Neutrophils 3.5 thou/uL (1.40-6.50); %Basophils 0.4 % (0.0-1.0); %Eosinophils 2.6 % (0.0-10.0); %Lymphocytes 16.1 % (21.0-51.0); %Monocytes 10.9 % (0.0-10.0); Hemoglobin 10.8 g/dL (14.0-18.0); Mean Corpuscular HGB CONC 33.4 g/dL (32.0-36.0); Mean Corpuscular Hemoglobin 31.8 pg (27.0-31.0); Mean Corpuscular Volume 95.2 fL (78.0-98.0); Mean Platelet Volume 7.2 fL (7.4-10.4); Platelet Count 123 thou/uL (130-400); RBC Distribution Width 12.1 % (11.5-14.5); Red Blood Cell (RBC) Count 3.38 mill/uL (4.70-6.10); White Blood Cell (WBC) Count 4.9 thou/uL (4.8-10.8)
[2018-03-23] MEDS: Ciprofloxacin 500 MG TAB PO SCH ×2 (05:15→20:06)
[2018-03-23] MEDS: Sodium Chloride 0.9% 1,000 ML IV SCH ×2 (05:15→09:35)
[2018-03-23] MEDS: Amiodarone HCl 450 MG, Admixture Fee 1 EACH in Dextrose 5% in Water 250 ML IVPB SCH ×2 (05:16→20:47)
[2018-03-23 05:27] LABS: Anion Gap 12 mmol/L (10-20); BUN (Urea Nitrogen) 11 mg/dL (8.4-25.7); Calc. Creatinine Clearance 110 mL/min (70-130); Calcium 8.3 mg/dL (7.8-10.44); Carbon Dioxide 23 mmol/L (23-31); Chloride 110 mmol/L (98-107); Estimated GFR-MDRD Greater than 90; Glucose 143 mg/dL (83-110); Potassium 3.7 mmol/L (3.5-5.1); Sodium 141 mmol/L (136-145)
[2018-03-23] MEDS: Apixaban 2.5 MG TAB PO SCH ×2 (09:35→13:09)
[2018-03-23] MEDS: metFORMIN 500 MG TAB PO SCH ×3 (09:35→19:01)
[2018-03-23] MEDS: Famotidine 20 MG TAB PO SCH ×2 (09:36→13:08)
[2018-03-23] MEDS: Pioglitazone HCl 45 MG TAB PO SCH ×2 (09:36→13:08)
[2018-03-23] MEDS: Digoxin 0.25 MG TAB PO SCH ×2 (09:36→13:08)
[2018-03-23] MEDS: Gabapentin 300 MG CAP PO SCH ×2 (09:36→14:52)
[2018-03-23] MEDS: Multivitamin W/ Minerals 1 TAB PO SCH ×2 (09:36→13:09)
[2018-03-23] MEDS: Tamsulosin HCl 0.4 MG CAP PO SCH ×2 (09:36→13:08)
[2018-03-23] MEDS ORDERED: PROPOFOL 20 ML ONE (09:59)
[2018-03-23] MEDS ORDERED: PROPOFOL 200 MG/20 ML VIAL ONE (11:33)
--- NOTE | 2018-03-23 11:39 | PDOC.PN ---
- Subjective Encounter Start Date: 03/23/18 Encounter Start Time: 11:00 Subjective: no sob or palpitations -: watching tv - Objective Resuscitation Status - Order Detail: 03/21/18 12:15 Resuscitation Status Routine Resuscitation Status: FULL: Full Resuscitation Discussed with: per previous order MAR Reviewed: Yes Vital Signs & Weight: Vital Signs (12 hours) Temp Pulse Pulse Ox 03/23/18 09:36 85 03/23/18 09:35 91 L 03/23/18 08:02 91 L 03/23/18 06:34 92 L 03/23/18 04:00 97.8 F 03/23/18 00:00 98.3 F Weight Weight 209 lb Most Recent Monitor Data Heart Rate from ECG 86 NIBP 154/82 NIBP BP-Mean 106 Respiration from ECG 20 SpO2 84 I&O: 03/22/18 03/23/18 03/24/18 06:59 06:59 06:59 Intake Total 4107 4043 Output Total 1918 3185 200 Balance 2189 858 -200 Result Diagrams: 03/23/18 04:29 03/23/18 04:29 Additional Labs: Accuchecks 03/23/18 03/22/18 03/22/18 06:09 20:49 17:36 POC Glucose 119 H 137 H 157 H Phys Exam - Physical Examination HEENT: PERRLA, moist MMs Neck: no nodes, no JVD Respiratory: no wheezing, no rales Cardiovascular: no significant murmur, irregular Gastrointestinal: soft, non-tender, positive bowel sounds Musculoskeletal: no edema, pulses present Neurological: non-focal, moves all 4 limbs Dx/Plan (1) Atrial fibrillation with RVR Code(s): I48.91 - UNSPECIFIED ATRIAL FIBRILLATION Status: Acute (2) Demand ischemia of myocardium Code(s): I24.8 - OTHER FORMS OF ACUTE ISCHEMIC HEART DISEASE Status: Acute (3) UTI (urinary tract infection) Status: Acute Qualifiers: Urinary tract infection type: acute cystitis Hematuria presence: without hematuria Qualified Code(s): N30.00 - Acute cystitis without hematuria (4) HLD (hyperlipidemia) Code(s): E78.5 - HYPERLIPIDEMIA, UNSPECIFIED Status: Chronic Qualifiers: Hyperlipidemia type: unspecified Qualified Code(s): E78.5 - Hyperlipidemia , unspecified (5) Bipolar disorder Code(s): F31.9 - BIPOLAR DISORDER, UNSPECIFIED Status: Chronic Qualifiers: Active/Remission status: remission status unspecified Qualified Code(s): F31.9 - Bipolar disorder, unspecified (6) DM2 (diabetes mellitus, type 2) Status: Chronic Qualifiers: Diabetes mellitus assisted insulin use: without assisted use Diabetes mellitus complication status: with unspecified complications Qualified Code(s) : E11.8 - Type 2 diabetes mellitus with unspecified complications (7) HTN (hypertension) Code(s): I10 - ESSENTIAL (PRIMARY) HYPERTENSION Status: Chronic Qualifiers: Hypertension type: essential hypertension Qualified Code(s): I10 - Essential (primary) hypertension (8) Physical deconditioning Code(s): R53.81 - OTHER MALAISE Status: Chronic (9) PAD (peripheral artery disease) Code(s): I73.9 - PERIPHERAL VASCULAR DISEASE, UNSPECIFIED Status: Chronic (10) BPH (benign prostatic hyperplasia) Code(s): N40.0 - BENIGN PROSTATIC HYPERPLASIA WITHOUT LOWER URINRY TRACT SYMP Status: Chronic Qualifiers: Lower urinary tract symptom presence: symptoms present Lower urinary tract symptom detail: unspecified Qualified Code(s): N40.1 - Benign prostatic hyperplasia with lower urinary tract symptoms - Plan afib is rate controlled this am -: is on eliquis, asp, amiodarone, digoxin and cardizem oral bid -: ceftriaxone, flomax, haldol and cogentin -: reduce iv fluids to 50mls/hr -: gentle ambulation, awaiting bed in tele * . Review of Systems - Medications/Allergies Allergies/Adverse Reactions: Allergies Allergy/AdvReac Type Severity Reaction Status Date / Time No Known Drug Allergies Allergy Verified 03/16/18 02:10 Medications: Current Medications Acetaminophen (Tylenol) 650 mg PO Q4H PRN PRN Reason: Headache/Fever/Mild Pain (1-3) Last Admin: 03/18/18 00:34 Dose: 650 mg Apixaban (Eliquis) 2.5 mg PO BID [facility] Last Admin: 03/23/18 09:35 Dose: Not Given Aspirin (Aspirin Chewable) 81 mg PO DAILY [facility] Last Admin: 03/23/18 09:35 Dose: Not Given Atorvastatin Calcium (Lipitor) 20 mg PO HS [facility] Last Admin: 03/22/18 20:41 Dose: 20 mg Benztropine Mesylate (Cogentin) 1 mg PO HS [facility] Last Admin: 03/22/18 20:41 Dose: 1 mg Ciprofloxacin (Cipro) 500 mg PO 599,1999 [facility] Last Admin: 03/23/18 05:15 Dose: 500 mg Cyanocobalamin (Vitamin B-12) 1,000 mcg SC Q7D [facility] Last Admin: 03/17/18 08:20 Dose: 1,000 mcg Dextrose/Water (Dextrose 50%) 25 gm SLOW IVP PRN PRN PRN Reason: Hypoglycemia Digoxin (Lanoxin) 0.25 mg PO DAILY [facility] Last Admin: 03/23/18 09:36 Dose: Not Given Diltiazem HCl (Cardizem) 30 mg PO BID [facility] Last Admin: 03/23/18 09:36 Dose: Not Given Famotidine (Pepcid) 20 mg PO DAILY [facility] Last Admin: 03/23/18 09:36 Dose: Not Given Gabapentin (Neurontin) 600 mg PO DAILY [facility] Last Admin: 03/23/18 09:36 Dose: Not Given Glucagon (Glucagon) 1 mg IM PRN PRN PRN Reason: Hypoglycemia Haloperidol (Haldol) 5 mg PO HS [facility] Last Admin: 03/22/18 20:42 Dose: 5 mg Dextrose/Water (D5w) 1,000 mls @ 0 mls/hr IV .Q0M PRN PRN Reason: Hypoglycemia Amiodarone HCl 450 mg/Miscellaneous Medication 1 each/ Dextrose/Water 259 mls @ 0 mls/hr IVPB INF [facility]; Protocol Last Admin: 03/23/18 05:16 Dose: 259 mls Sodium Chloride (Normal Saline 0.9%) 1,000 mls @ 50 mls/hr IV .Q20H [facility] Last Admin: 03/23/18 09:35 Dose: 1,000 mls Insulin Human Lispro (Humalog) 0 units SC .MILD SLIDING SCALE PRN PRN Reason: Mild Correctional Scale Last Admin: 03/21/18 20:50 Dose: 2 unit Iron/Minerals/Multivitamins (Theragran M) 1 tab PO DAILY [facility] Last Admin: 03/23/18 09:36 Dose: Not Given Metformin HCl (Glucophage) 500 mg PO TID-[facility] Last Admin: 03/23/18 09:35 Dose: Not Given Pioglitazone HCl (Actos) 45 mg PO DAILY [facility] Last Admin: 03/23/18 09:36 Dose: Not Given Tamsulosin HCl (Flomax) 0.4 mg PO DAILY [facility] Last Admin: 03/23/18 09:36 Dose: Not Given Tramadol HCl (Ultram) 50 mg PO Q6H PRN PRN Reason: Pain 4-6
[2018-03-23] MEDS ORDERED: Apixaban 5 MG TAB PO SCH ×2 (18:00→21:00)
[2018-03-23] MEDS: Haloperidol 5 MG TAB PO SCH (20:48)
[2018-03-23] MEDS: Atorvastatin Calcium 20 MG TAB PO SCH (20:48)
[2018-03-23] MEDS: Benztropine 1 MG TAB PO SCH (20:48)
--- NOTE | 2018-03-23 23:25 | PRG ---
DATE OF SERVICE: 03/23/2018 SUBJECTIVE: Mr. Modi has no new complaints, but he really hasn't complained the whole time he has been here. OBJECTIVE: VITAL SIGNS: He is afebrile. Blood pressure 155/89, heart rate 80, respiratory rate of 20. LUNGS: Clear. HEART: Regular rhythm. No murmur. ABDOMEN: Soft and nontender. EXTREMITIES: No clubbing, cyanosis or edema. NEUROLOGIC: Nonfocal. IMPRESSION: 1. Atrial fibrillation. 2. Transient hypertension related to medications, and he appears to be stable at this time. There is a plan reported to me by Cardiology to cardiovert him at some point. Job ID: [id number] MTDD
--- NOTE | 2018-03-23 23:27 | ECHO ---
DATE OF SERVICE: 03/23/18 PROCEDURE: Transesophageal echo. Transesophageal echo was done to evaluate for left atrial appendage thrombus in the setting of A-fib needing cardioversion. He was brought down to the procedural area where the anesthesiologist provided with sedation for the patient. Once adequate sedation was achieved, the transesophageal probe was inserted into the mouth a nd into the esophagus and multiplanar views were then obtained. Left ventricle seems to be normal size with normal systolic function. Atrial fibrillation during stud y. EF about 45-50%. Left atrium is severely dilated. There is a large elongated left atrial appendage with no evidence of mass or thrombus. Right atrium is normal sized. Right ventricle is normal size with normal systolic function. The aortic valve appears to be structural normal with three cusps. No stenosis or regurgitation. Mitral valve has mild mitral regurgitation. No stenosis. Structurally normal. Tricuspid valve is structurally normal. There is mild TR. Pulmonary valve not well seen. Large pleural effusion. CONCLUSIONS: 1. Normal LV systolic function. EF 50-55%. 2. Severely dilated left atrium. 3. Large atrial appendage without evidence of mass or thrombus. 4. Mild MR. 5. Mild TR
--- NOTE | 2018-03-23 23:51 | OP ---
DATE OF PROCEDURE: 03/23/18 PREOPERATIVE DIAGNOSIS: Atrial fibrillation. PROCEDURE: Cardioversion. SUMMARY: The patient was brought to the procedural area for cardioversion. KATIE was performed previously ruling out any thrombus in the left atrial appendage. After adequate sedation was achieved by the anesthesiology department, one single synchronized shock was delivered at 150 joules successfully converting him from atrial fibrillation into sinus rhythm. T he patient tolerated the procedure well. RECOMMENDATIONS: 1. Continue Amiodarone and Eliquis. 2. Discharge in the morning if patient remains stable. 1.
[2018-03-24 04:25] LABS: #Eosinphils 0.1 thou/uL (0.0-0.7); #Lymphocytes 0.7 thou/uL (1.20-3.40); #Monocytes 0.3 thou/uL (0.11-0.59); #Neutrophils 3.5 thou/uL (1.40-6.50); %Basophils 0.6 % (0.0-1.0); %Eosinophils 2.9 % (0.0-10.0); %Monocytes 7.1 % (0.0-10.0); %Neutrophils 75.3 % (42.0-75.0); Hemoglobin 10.4 g/dL (14.0-18.0); Mean Corpuscular Hemoglobin 32.1 pg (27.0-31.0); Mean Corpuscular Volume 94.6 fL (78.0-98.0); Mean Platelet Volume 7.3 fL (7.4-10.4); Platelet Count 124 thou/uL (130-400); RBC Distribution Width 12.1 % (11.5-14.5); Red Blood Cell (RBC) Count 3.24 mill/uL (4.70-6.10); White Blood Cell (WBC) Count 4.6 thou/uL (4.8-10.8)
[2018-03-24 04:33] LABS: Anion Gap 10 mmol/L (10-20); BUN (Urea Nitrogen) 13 mg/dL (8.4-25.7); Calc. Creatinine Clearance 112 mL/min (70-130); Calcium 8.2 mg/dL (7.8-10.44); Carbon Dioxide 23 mmol/L (23-31); Chloride 109 mmol/L (98-107); Estimated GFR-MDRD Greater than 90; Glucose 127 mg/dL (83-110); Potassium 3.5 mmol/L (3.5-5.1); Sodium 138 mmol/L (136-145)
[2018-03-24] MEDS: Ciprofloxacin 500 MG TAB PO SCH ×2 (06:01→21:13)
[2018-03-24] MEDS: Sodium Chloride 0.9% 1,000 ML IV SCH (06:04)
[2018-03-24] MEDS: Cyanocobalamin 1000 MCG/ML VIAL SC SCH (08:18)
[2018-03-24] MEDS: Apixaban 5 MG TAB PO SCH ×2 (08:19→21:13)
[2018-03-24] MEDS: Gabapentin 300 MG CAP PO SCH (08:19)
[2018-03-24] MEDS: Pioglitazone HCl 45 MG TAB PO SCH (08:19)
[2018-03-24] MEDS: Amiodarone 200 MG TAB PO SCH ×2 (08:19→21:13)
[2018-03-24] MEDS: Digoxin 0.25 MG TAB PO SCH (08:19)
[2018-03-24] MEDS: Lisinopril 10 MG TAB PO SCH (08:20)
[2018-03-24] MEDS: Tamsulosin HCl 0.4 MG CAP PO SCH (08:20)
[2018-03-24] MEDS: metFORMIN 500 MG TAB PO SCH ×3 (08:20→17:40)
[2018-03-24] MEDS: Famotidine 20 MG TAB PO SCH (08:20)
[2018-03-24] MEDS: Multivitamin W/ Minerals 1 TAB PO SCH (08:20)
[2018-03-24] MEDS ORDERED: Apixaban 2.5 MG TAB PO SCH (09:00)
--- NOTE | 2018-03-24 11:33 | PDOC.PN ---
- Subjective Encounter Start Date: 03/24/18 Encounter Start Time: 10:30 Subjective: is awake, no c/o palp or chest pain -: has not ambulated yet - Objective Resuscitation Status - Order Detail: 03/21/18 12:15 Resuscitation Status Routine Resuscitation Status: FULL: Full Resuscitation Discussed with: per previous order MAR Reviewed: Yes Vital Signs & Weight: Vital Signs (12 hours) Temp Pulse Resp BP BP Pulse Ox 03/24/18 08:20 166/88 H 03/24/18 08:19 74 03/24/18 07:32 98 F 74 14 166/88 H 96 03/24/18 05:41 93 L 03/24/18 05:01 98.2 F 03/24/18 00:00 98.6 F Weight Admit Weight 168 lb 14.4 oz Weight 205 lb Most Recent Monitor Data Heart Rate from ECG 73 NIBP 168/101 NIBP BP-Mean 123 Respiration from ECG 15 SpO2 94 I&O: 03/23/18 03/24/18 03/25/18 06:59 06:59 06:59 Intake Total 4043 380 Output Total 3185 1850 Balance 858 -1470 Result Diagrams: 03/24/18 03:24 03/24/18 03:24 Additional Labs: Accuchecks 03/24/18 03/24/18 03/23/18 11:15 05:47 21:09 POC Glucose 151 H 132 H 123 H 03/23/18 03/23/18 03/17/18 18:05 12:58 05:49 POC Glucose 122 H 109 160 H Phys Exam - Physical Examination HEENT: PERRLA, moist MMs Neck: no JVD, supple Respiratory: no wheezing, no rales Cardiovascular: no significant murmur, irregular Gastrointestinal: soft, non-tender, positive bowel sounds Musculoskeletal: pulses present, edema present Neurological: non-focal, moves all 4 limbs Dx/Plan (1) Atrial fibrillation with RVR Code(s): I48.91 - UNSPECIFIED ATRIAL FIBRILLATION Status: Acute (2) Demand ischemia of myocardium Code(s): I24.8 - OTHER FORMS OF ACUTE ISCHEMIC HEART DISEASE Status: Acute (3) UTI (urinary tract infection) Status: Resolved Qualifiers: Urinary tract infection type: acute cystitis Hematuria presence: without hematuria Qualified Code(s): N30.00 - Acute cystitis without hematuria (4) HLD (hyperlipidemia) Code(s): E78.5 - HYPERLIPIDEMIA, UNSPECIFIED Status: Chronic Qualifiers: Hyperlipidemia type: unspecified Qualified Code(s): E78.5 - Hyperlipidemia , unspecified (5) Bipolar disorder Code(s): F31.9 - BIPOLAR DISORDER, UNSPECIFIED Status: Chronic Qualifiers: Active/Remission status: remission status unspecified Qualified Code(s): F31.9 - Bipolar disorder, unspecified (6) DM2 (diabetes mellitus, type 2) Status: Chronic Qualifiers: Diabetes mellitus alf insulin use: without marine oil terminal superintendent use Diabetes mellitus complication status: with unspecified complications Qualified Code(s) : E11.8 - Type 2 diabetes mellitus with unspecified complications (7) HTN (hypertension) Code(s): I10 - ESSENTIAL (PRIMARY) HYPERTENSION Status: Chronic Qualifiers: Hypertension type: essential hypertension Qualified Code(s): I10 - Essential (primary) hypertension (8) Physical deconditioning Code(s): R53.81 - OTHER MALAISE Status: Chronic (9) PAD (peripheral artery disease) Code(s): I73.9 - PERIPHERAL VASCULAR DISEASE, UNSPECIFIED Status: Chronic (10) BPH (benign prostatic hyperplasia) Code(s): N40.0 - BENIGN PROSTATIC HYPERPLASIA WITHOUT LOWER URINRY TRACT SYMP Status: Chronic Qualifiers: Lower urinary tract symptom presence: symptoms present Lower urinary tract symptom detail: unspecified Qualified Code(s): N40.1 - Benign prostatic hyperplasia with lower urinary tract symptoms - Plan is back in afib now, was in sinus post cardioversion yesterday -: is deconditioned and has not ambulated, will likely need swing bed -: await PT/cardiac rehab to mobilize him -: tried calling Ms.Sarah carolina unable to reach her due to one connection, will -: try again this evening. * . continue amiodarone po, dig, cardizem, asp, eliquis may dc cipro if ok with other specialists. continue dm oral meds and flomax May bladder train and remove abdi Review of Systems - Medications/Allergies Allergies/Adverse Reactions: Allergies Allergy/AdvReac Type Severity Reaction Status Date / Time No Known Drug Allergies Allergy Verified 03/16/18 02:10 Medications: Current Medications Acetaminophen (Tylenol) 650 mg PO Q4H PRN PRN Reason: Headache/Fever/Mild Pain (1-3) Last Admin: 03/18/18 00:34 Dose: 650 mg Amiodarone HCl (Cordarone) 400 mg PO BID [facility] Last Admin: 03/24/18 08:19 Dose: 400 mg Apixaban (Eliquis) 5 mg PO BID [facility] Last Admin: 03/24/18 08:19 Dose: 5 mg Aspirin (Aspirin Chewable) 81 mg PO DAILY [facility] Last Admin: 03/24/18 08:19 Dose: 81 mg Atorvastatin Calcium (Lipitor) 20 mg PO HS [facility] Last Admin: 03/23/18 20:48 Dose: 20 mg Benztropine Mesylate (Cogentin) 1 mg PO HS [facility] Last Admin: 03/23/18 20:48 Dose: 1 mg Ciprofloxacin (Cipro) 500 mg PO 599,1999 [facility] Last Admin: 03/24/18 06:01 Dose: 500 mg Cyanocobalamin (Vitamin B-12) 1,000 mcg SC Q7D [facility] Last Admin: 03/24/18 08:18 Dose: 1,000 mcg Dextrose/Water (Dextrose 50%) 25 gm SLOW IVP PRN PRN PRN Reason: Hypoglycemia Digoxin (Lanoxin) 0.25 mg PO DAILY [facility] Last Admin: 03/24/18 08:19 Dose: 0.25 mg Diltiazem HCl (Cardizem) 30 mg PO BID [facility] Last Admin: 03/24/18 08:19 Dose: 30 mg Famotidine (Pepcid) 20 mg PO DAILY [facility] Last Admin: 03/24/18 08:20 Dose: 20 mg Gabapentin (Neurontin) 600 mg PO DAILY [facility] Last Admin: 03/24/18 08:19 Dose: 600 mg Glucagon (Glucagon) 1 mg IM PRN PRN PRN Reason: Hypoglycemia Haloperidol (Haldol) 5 mg PO HS [facility] Last Admin: 03/23/18 20:48 Dose: 5 mg Dextrose/Water (D5w) 1,000 mls @ 0 mls/hr IV .Q0M PRN PRN Reason: Hypoglycemia Insulin Human Lispro (Humalog) 0 units SC .MILD SLIDING SCALE PRN PRN Reason: Mild Correctional Scale Last Admin: 03/21/18 20:50 Dose: 2 unit Iron/Minerals/Multivitamins (Theragran M) 1 tab PO DAILY [facility] Last Admin: 03/24/18 08:20 Dose: 1 tab Lisinopril (Zestril) 10 mg PO DAILY [facility] Last Admin: 03/24/18 08:20 Dose: 10 mg Metformin HCl (Glucophage) 500 mg PO TID-[facility] Last Admin: 03/24/18 08:20 Dose: 500 mg Pioglitazone HCl (Actos) 45 mg PO DAILY [facility] Last Admin: 03/24/18 08:19 Dose: 45 mg Tamsulosin HCl (Flomax) 0.4 mg PO DAILY [facility] Last Admin: 03/24/18 08:20 Dose: 0.4 mg Tramadol HCl (Ultram) 50 mg PO Q6H PRN PRN Reason: Pain 4-6
--- NOTE | 2018-03-24 11:42 | PRG ---
DATE OF SERVICE: 03/24/2018 SUBJECTIVE: Isaiah Modi is in no distress. OBJECTIVE: VITAL SIGNS: He is afebrile. Heart rate is in 70s. Blood pressure is elevated now 166/88, 96% on room air. LUNGS: Clear. HEART: Regular rhythm. ABDOMEN: Soft. LABORATORY DATA: White count is 4.6, hemoglobin 10.4, platelets 124. Sodium 138, potassium 3.5, chloride 109, bicarb 23, BUN 13, creatinine 0.79. IMPRESSION: 1. Status post several episodes of hypotension that were related to antihypertensives and the atrial fibrillation drugs. 2. Status post cardioversion for atrial fibrillation and sinus rhythm yesterday, now still on IV amiodarone and Eliquis. 3. Extreme deconditioning. PLAN: Continue supportive care. We will see as needed in the future. His blood pressure meds will probably need to be adjusted carefully. Job ID: [id number]
[2018-03-24] MEDS: HumaLOG 300 UNITS/3 ML VIAL SC PRN (11:54)
--- NOTE | 2018-03-24 15:55 | PDOC.CTH ---
Cardiology Progress Note - Subjective Successful Cardioversion yesterday. He remains in sinus. No new issues, doing well. - Objective Vital Signs Temp Pulse Resp BP BP Pulse Ox 03/24/18 15:22 98.8 F 88 16 176/76 H 100 03/24/18 11:12 76 16 170/82 H 93 L 03/24/18 08:20 166/88 H 03/24/18 08:19 74 03/24/18 07:32 98 F 74 14 166/88 H 96 03/24/18 05:41 93 L 03/24/18 05:01 98.2 F Admit Weight 168 lb 14.4 oz Weight 205 lb 03/23/18 03/24/18 03/25/18 06:59 06:59 06:59 Intake Total 4043 380 Output Total 3185 1850 Balance 858 -1470 - Physical Examination General/Neuro: alert & oriented x3, NAD Neck: no JVD present Lungs: CTA, unlabored respirations Heart: RRR Abdomen: NT/ND Extremities: other: (no edema) - Telemetry Telemetry Rhythm: NSR - Labs Result Diagrams: 03/24/18 03:24 03/24/18 03:24 Troponin/CKMB CK-MB (CK-2) 1.9 ng/mL (0-6.6) 03/15/18 18:30 Troponin I 0.184 ng/mL (< 0.028) H 03/18/18 13:45 - Assessment/Plan 1. Paroxysmal Afib RVR. Now in sinus after DCCV. 3. HTN. 4. UTI on antibiotics. 5. Elevated troponin. Demand ischemia.. PLAN: - On lower dose CCB and PO Dig. - Continue Amiodarone PO load and Eliquis. - May discharge home at any time form cardiac perspective.
[2018-03-24] MEDS: Benztropine 1 MG TAB PO SCH (21:13)
[2018-03-24] MEDS: Atorvastatin Calcium 20 MG TAB PO SCH (21:13)
[2018-03-24] MEDS: Haloperidol 5 MG TAB PO SCH (21:13)
--- NOTE | 2018-03-24 22:35 | EKG ---
Test Reason : Blood Pressure : / mmHG Vent. Rate : 092 BPM Atrial Rate : 092 BPM P-R Int : 178 ms QRS Dur : 096 ms QT Int : 354 ms P-R-T Axes : 081 -39 146 degrees QTc Int : 437 ms Sinus rhythm with Premature supraventricular complexes Left axis deviation Low voltage QRS Cannot rule out Anteroseptal infarct (cited on or before 15-MAR-2018) Abnormal ECG When compared with ECG of 15-MAR-2018 18:13, (Unconfirmed) Non-specific change in ST segment in Lateral leads Nonspecific T wave abnormality now evident in Inferior leads Nonspecific T wave abnormality now evident in Anterior leads Confirmed by BRITTANY LANCASTER, DR. Christy ([id number]) on 03/24/2018 10:35:07 PM Referred By: VICKI Confirmed By:DR. Jaelyn SOTO MD
--- NOTE | 2018-03-24 22:40 | EKG ---
Test Reason : Blood Pressure : / mmHG Vent. Rate : 073 BPM Atrial Rate : 073 BPM P-R Int : 180 ms QRS Dur : 098 ms QT Int : 422 ms P-R-T Axes : 111 -34 117 degrees QTc Int : 464 ms Normal sinus rhythm Low voltage QRS Cannot rule out Anteroseptal infarct (cited on or before 15-MAR-2018) Abnormal ECG When compared with ECG of 23-MAR-2018 14:13, (Unconfirmed) Premature supraventricular complexes are no longer Present Confirmed by BRITTANY LANCASTER, SKaci ([id number]) on 03/24/2018 10:40:36 PM Referred By: VICKI Confirmed By:DR. Jaelyn SOTO MD
[2018-03-25] MEDS: Ciprofloxacin 500 MG TAB PO SCH ×2 (05:14→21:33)
[2018-03-25] MEDS: HumaLOG 300 UNITS/3 ML VIAL SC PRN (08:08)
[2018-03-25] MEDS: Gabapentin 300 MG CAP PO SCH (08:09)
[2018-03-25] MEDS: Tamsulosin HCl 0.4 MG CAP PO SCH ×2 (08:09→21:33)
[2018-03-25] MEDS: Multivitamin W/ Minerals 1 TAB PO SCH (08:10)
[2018-03-25] MEDS: Pioglitazone HCl 45 MG TAB PO SCH (08:10)
[2018-03-25] MEDS: Digoxin 0.25 MG TAB PO SCH (08:10)
[2018-03-25] MEDS: Apixaban 5 MG TAB PO SCH ×2 (08:10→21:33)
[2018-03-25] MEDS: Lisinopril 10 MG TAB PO SCH (08:11)
[2018-03-25] MEDS: Amiodarone 200 MG TAB PO SCH ×2 (08:11→21:32)
[2018-03-25] MEDS: Famotidine 20 MG TAB PO SCH (08:11)
[2018-03-25] MEDS: metFORMIN 500 MG TAB PO SCH ×3 (08:11→17:39)
[2018-03-25] MEDS: traMADol HCl 50 MG TAB PO PRN ×2 (10:49→21:33)
[2018-03-25] MEDS ORDERED: Morphine 2 MG/ML SYRINGE SLOW IVP SCH (12:00)
--- NOTE | 2018-03-25 13:19 | PDOC.PN ---
- Subjective Encounter Start Date: 03/25/18 Encounter Start Time: 11:00 Subjective: no sob or palp -: needed max assist to stand up for a few seconds with PT - Objective Resuscitation Status - Order Detail: 03/21/18 12:15 Resuscitation Status Routine Resuscitation Status: FULL: Full Resuscitation Discussed with: per previous order MAR Reviewed: Yes Vital Signs & Weight: Vital Signs (12 hours) Temp Pulse Pulse Pulse Resp BP BP 03/25/18 11:30 72 18 03/25/18 09:37 103 H 98 174/77 H 03/25/18 08:11 178/83 H 03/25/18 08:10 82 03/25/18 07:12 98.2 F 82 20 03/25/18 04:26 98.9 F 89 18 BP BP Pulse Ox 03/25/18 11:30 141/81 H 92 L 03/25/18 09:37 183/84 H 03/25/18 08:11 03/25/18 08:10 03/25/18 07:12 178/83 H 92 L 03/25/18 04:26 163/77 H 94 L Weight Admit Weight 168 lb 14.4 oz Weight 198 lb 8 oz Most Recent Monitor Data Heart Rate from ECG 73 NIBP 168/101 NIBP BP-Mean 123 Respiration from ECG 15 SpO2 94 I&O: 03/24/18 03/25/18 03/26/18 06:59 06:59 06:59 Intake Total 380 240 Output Total 1850 850 Balance -1470 -610 Result Diagrams: 03/24/18 03:24 03/24/18 03:24 Additional Labs: Accuchecks 03/25/18 03/25/18 03/24/18 10:46 05:28 20:31 POC Glucose 122 H 151 H 198 H 03/24/18 17:04 POC Glucose 134 H Phys Exam - Physical Examination HEENT: PERRLA, moist MMs Neck: no JVD, supple Respiratory: no wheezing, no rales Cardiovascular: no significant murmur, irregular Gastrointestinal: soft, non-tender, positive bowel sounds Musculoskeletal: no edema, pulses present Neurological: non-focal, moves all 4 limbs Dx/Plan (1) Atrial fibrillation with RVR Code(s): I48.91 - UNSPECIFIED ATRIAL FIBRILLATION Status: Acute (2) Demand ischemia of myocardium Code(s): I24.8 - OTHER FORMS OF ACUTE ISCHEMIC HEART DISEASE Status: Acute (3) UTI (urinary tract infection) Status: Resolved Qualifiers: Urinary tract infection type: acute cystitis Hematuria presence: without hematuria Qualified Code(s): N30.00 - Acute cystitis without hematuria (4) HLD (hyperlipidemia) Code(s): E78.5 - HYPERLIPIDEMIA, UNSPECIFIED Status: Chronic Qualifiers: Hyperlipidemia type: unspecified Qualified Code(s): E78.5 - Hyperlipidemia , unspecified (5) Bipolar disorder Code(s): F31.9 - BIPOLAR DISORDER, UNSPECIFIED Status: Chronic Qualifiers: Active/Remission status: remission status unspecified Qualified Code(s): F31.9 - Bipolar disorder, unspecified (6) DM2 (diabetes mellitus, type 2) Status: Chronic Qualifiers: Diabetes mellitus halfway insulin use: without terminal system operator use Diabetes mellitus complication status: with unspecified complications Qualified Code(s) : E11.8 - Type 2 diabetes mellitus with unspecified complications (7) HTN (hypertension) Code(s): I10 - ESSENTIAL (PRIMARY) HYPERTENSION Status: Chronic Qualifiers: Hypertension type: essential hypertension Qualified Code(s): I10 - Essential (primary) hypertension (8) Physical deconditioning Code(s): R53.81 - OTHER MALAISE Status: Chronic (9) PAD (peripheral artery disease) Code(s): I73.9 - PERIPHERAL VASCULAR DISEASE, UNSPECIFIED Status: Chronic (10) BPH (benign prostatic hyperplasia) Code(s): N40.0 - BENIGN PROSTATIC HYPERPLASIA WITHOUT LOWER URINRY TRACT SYMP Status: Chronic Qualifiers: Lower urinary tract symptom presence: symptoms present Lower urinary tract symptom detail: unspecified Qualified Code(s): N40.1 - Benign prostatic hyperplasia with lower urinary tract symptoms - Plan has severe deconditioning, PT will try again in am to mobilize hime -: dc plan home if he ambulates at least 30-40ft with rw -: got his abdi inserted again due to u.retention, will need outpt urology f/ -: is on amiodarone, eliquis, dig, cardizem oral, lisinopril -: asp, lipitor, haldol and cogentin. Metformin and actos for dm * . Review of Systems - Medications/Allergies Allergies/Adverse Reactions: Allergies Allergy/AdvReac Type Severity Reaction Status Date / Time No Known Drug Allergies Allergy Verified 03/16/18 02:10 Medications: Current Medications Acetaminophen (Tylenol) 650 mg PO Q4H PRN PRN Reason: Headache/Fever/Mild Pain (1-3) Last Admin: 03/18/18 00:34 Dose: 650 mg Amiodarone HCl (Cordarone) 400 mg PO BID [facility] Last Admin: 03/25/18 08:11 Dose: 400 mg Apixaban (Eliquis) 5 mg PO BID [facility] Last Admin: 03/25/18 08:10 Dose: 5 mg Aspirin (Aspirin Chewable) 81 mg PO DAILY [facility] Last Admin: 03/25/18 08:11 Dose: 81 mg Atorvastatin Calcium (Lipitor) 20 mg PO HS [facility] Last Admin: 03/24/18 21:13 Dose: 20 mg Benztropine Mesylate (Cogentin) 1 mg PO HS [facility] Last Admin: 03/24/18 21:13 Dose: 1 mg Ciprofloxacin (Cipro) 500 mg PO 06,1999 [facility] Last Admin: 03/25/18 05:14 Dose: 500 mg Cyanocobalamin (Vitamin B-12) 1,000 mcg SC Q7D [facility] Last Admin: 03/24/18 08:18 Dose: 1,000 mcg Dextrose/Water (Dextrose 50%) 25 gm SLOW IVP PRN PRN PRN Reason: Hypoglycemia Digoxin (Lanoxin) 0.25 mg PO DAILY [facility] Last Admin: 03/25/18 08:10 Dose: 0.25 mg Diltiazem HCl (Cardizem) 30 mg PO BID [facility] Last Admin: 03/25/18 08:11 Dose: 30 mg Famotidine (Pepcid) 20 mg PO DAILY [facility] Last Admin: 03/25/18 08:11 Dose: 20 mg Gabapentin (Neurontin) 600 mg PO DAILY [facility] Last Admin: 03/25/18 08:09 Dose: 600 mg Glucagon (Glucagon) 1 mg IM PRN PRN PRN Reason: Hypoglycemia Haloperidol (Haldol) 5 mg PO HS [facility] Last Admin: 03/24/18 21:13 Dose: 5 mg Dextrose/Water (D5w) 1,000 mls @ 0 mls/hr IV .Q0M PRN PRN Reason: Hypoglycemia Insulin Human Lispro (Humalog) 0 units SC .MILD SLIDING SCALE PRN PRN Reason: Mild Correctional Scale Last Admin: 12/01/18 08:08 Dose: 2 unit Iron/Minerals/Multivitamins (Theragran M) 1 tab PO DAILY [facility] Last Admin: 03/25/18 08:10 Dose: 1 tab Lisinopril (Zestril) 10 mg PO DAILY [facility] Last Admin: 03/25/18 08:11 Dose: 10 mg Metformin HCl (Glucophage) 500 mg PO TID-WM [facility] Last Admin: 03/25/18 12:13 Dose: 500 mg Morphine Sulfate (Morphine) 2 mg SLOW IVP 1200 [facility] Stop: 03/25/18 14:00 Last Admin: 03/25/18 12:12 Dose: 2 mg Pioglitazone HCl (Actos) 45 mg PO DAILY [facility] Last Admin: 03/25/18 08:10 Dose: 45 mg Sodium Chloride (Flush - Normal Saline) 10 ml IVF Q12HR [facility] Sodium Chloride (Flush - Normal Saline) 10 ml IVF PRN PRN PRN Reason: Saline Flush Tamsulosin HCl (Flomax) 0.4 mg PO BID [facility] Last Admin: 03/25/18 08:09 Dose: 0.4 mg Tramadol HCl (Ultram) 50 mg PO Q6H PRN PRN Reason: Pain 4-6 Last Admin: 03/25/18 10:49 Dose: 50 mg
--- NOTE | 2018-03-25 18:00 | EKG ---
Test Reason : Blood Pressure : / mmHG Vent. Rate : 079 BPM Atrial Rate : 326 BPM P-R Int : 000 ms QRS Dur : 110 ms QT Int : 408 ms P-R-T Axes : 000 234 081 degrees QTc Int : 467 ms Accelerated Junctional rhythm Right superior axis deviation Septal infarct , age undetermined Abnormal ECG Confirmed by AMY LANCASTER, MIGUELANGEL ([id number]), legal editor ANTONIO THOMPSON ([id number]) on 03/25/2018 6:00:03 PM Referred By: Confirmed By:MIGUELANGEL REYES MD
[2018-03-25] MEDS: Diltiazem 125 MG in Sodium Chloride 0.9% 100 ML IVPB SCH (18:58)
[2018-03-25] MEDS: Haloperidol 5 MG TAB PO SCH (21:32)
[2018-03-25] MEDS: Benztropine 1 MG TAB PO SCH (21:32)
[2018-03-25] MEDS: Atorvastatin Calcium 20 MG TAB PO SCH (21:33)
[2018-03-26 06:01] LABS: Anion Gap 13 mmol/L (10-20); BUN (Urea Nitrogen) 20 mg/dL (8.4-25.7); Calc. Creatinine Clearance 113 mL/min (70-130); Calcium 8.6 mg/dL (7.8-10.44); Carbon Dioxide 23 mmol/L (23-31); Chloride 106 mmol/L (98-107); Estimated GFR-MDRD Greater than 90; Glucose 150 mg/dL (83-110); Potassium 3.9 mmol/L (3.5-5.1); Sodium 138 mmol/L (136-145)
[2018-03-26] MEDS: Ciprofloxacin 500 MG TAB PO SCH (06:03)
[2018-03-26 06:12] LABS: Digoxin 1.37 ng/mL (0.8-2.0)
[2018-03-26] MEDS: Diltiazem 125 MG in Sodium Chloride 0.9% 100 ML IVPB SCH ×2 (06:24→17:24)
[2018-03-26] MEDS: Gabapentin 300 MG CAP PO SCH (08:05)
[2018-03-26] MEDS: Digoxin 0.25 MG TAB PO SCH (08:05)
[2018-03-26] MEDS: Lisinopril 10 MG TAB PO SCH (08:06)
[2018-03-26] MEDS: Amiodarone 200 MG TAB PO SCH ×3 (08:06→21:12)
[2018-03-26] MEDS: Tamsulosin HCl 0.4 MG CAP PO SCH ×2 (08:06→21:12)
[2018-03-26] MEDS: Apixaban 5 MG TAB PO SCH ×2 (08:06→21:12)
[2018-03-26] MEDS: metFORMIN 500 MG TAB PO SCH ×3 (08:06→17:24)
[2018-03-26] MEDS: Multivitamin W/ Minerals 1 TAB PO SCH (08:06)
[2018-03-26] MEDS: Pioglitazone HCl 45 MG TAB PO SCH (08:07)
[2018-03-26] MEDS: Famotidine 20 MG TAB PO SCH (08:07)
[2018-03-26] MEDS: HumaLOG 300 UNITS/3 ML VIAL SC PRN ×2 (11:23→17:24)
--- NOTE | 2018-03-26 12:24 | PDOC.PN ---
- Subjective Encounter Start Date: 03/26/18 Encounter Start Time: 10:15 Subjective: no sob or chest pain -: is on cardizem drip at 10mg/hr - Objective Resuscitation Status - Order Detail: 03/21/18 12:15 Resuscitation Status Routine Resuscitation Status: FULL: Full Resuscitation Discussed with: per previous order MAR Reviewed: Yes Vital Signs & Weight: Vital Signs (12 hours) Temp Pulse Resp BP Pulse Ox 03/26/18 12:00 97.8 F 79 16 101/50 L 92 L 03/26/18 08:05 67 03/26/18 08:00 92 L 03/26/18 07:31 97.6 F 67 16 121/61 92 L 03/26/18 04:00 97.9 F 94 18 117/68 93 L Weight Admit Weight 168 lb 14.4 oz Weight 200 lb 11.2 oz Most Recent Monitor Data Heart Rate from ECG 73 NIBP 168/101 NIBP BP-Mean 123 Respiration from ECG 15 SpO2 94 I&O: 03/25/18 03/26/18 03/27/18 06:59 06:59 06:59 Intake Total 240 998 Output Total 850 850 Balance -610 148 Result Diagrams: 03/24/18 03:24 03/26/18 05:16 Additional Labs: Accuchecks 03/26/18 03/26/18 03/25/18 11:02 05:26 20:16 POC Glucose 204 H 145 H 137 H 03/25/18 16:41 POC Glucose 114 H Phys Exam - Physical Examination HEENT: PERRLA, moist MMs Neck: no JVD, supple Respiratory: no wheezing, no rales Cardiovascular: no significant murmur, irregular Gastrointestinal: soft, non-tender, positive bowel sounds Musculoskeletal: pulses present, edema present Neurological: non-focal, moves all 4 limbs Psychiatric: normal affect Dx/Plan (1) Atrial fibrillation with RVR Code(s): I48.91 - UNSPECIFIED ATRIAL FIBRILLATION Status: Acute (2) Demand ischemia of myocardium Code(s): I24.8 - OTHER FORMS OF ACUTE ISCHEMIC HEART DISEASE Status: Acute (3) UTI (urinary tract infection) Status: Resolved Qualifiers: Urinary tract infection type: acute cystitis Hematuria presence: without hematuria Qualified Code(s): N30.00 - Acute cystitis without hematuria (4) HLD (hyperlipidemia) Code(s): E78.5 - HYPERLIPIDEMIA, UNSPECIFIED Status: Chronic Qualifiers: Hyperlipidemia type: unspecified Qualified Code(s): E78.5 - Hyperlipidemia , unspecified (5) Bipolar disorder Code(s): F31.9 - BIPOLAR DISORDER, UNSPECIFIED Status: Chronic Qualifiers: Active/Remission status: remission status unspecified Qualified Code(s): F31.9 - Bipolar disorder, unspecified (6) DM2 (diabetes mellitus, type 2) Status: Chronic Qualifiers: Diabetes mellitus alf insulin use: without alf use Diabetes mellitus complication status: with unspecified complications Qualified Code(s) : E11.8 - Type 2 diabetes mellitus with unspecified complications (7) HTN (hypertension) Code(s): I10 - ESSENTIAL (PRIMARY) HYPERTENSION Status: Chronic Qualifiers: Hypertension type: essential hypertension Qualified Code(s): I10 - Essential (primary) hypertension (8) Physical deconditioning Code(s): R53.81 - OTHER MALAISE Status: Chronic (9) PAD (peripheral artery disease) Code(s): I73.9 - PERIPHERAL VASCULAR DISEASE, UNSPECIFIED Status: Chronic (10) BPH (benign prostatic hyperplasia) Code(s): N40.0 - BENIGN PROSTATIC HYPERPLASIA WITHOUT LOWER URINRY TRACT SYMP Status: Chronic Qualifiers: Lower urinary tract symptom presence: symptoms present Lower urinary tract symptom detail: urinary retention Qualified Code(s): N40.1 - Benign prostatic hyperplasia with lower urinary tract symptoms; R33.8 - Other retention of urine - Plan is on cardizem drip, amio 400mg tid, dig, eliquis, asp, lipitor -: increase flomax to bid for u.retention with replaced abdi -: to amb with PT as tolerated -: has persistent afib with rvr on multiple meds and ablation -: continue metformin, actos, haldol, cogentin, dc cipro * . Review of Systems - Medications/Allergies Allergies/Adverse Reactions: Allergies Allergy/AdvReac Type Severity Reaction Status Date / Time No Known Drug Allergies Allergy Verified 03/16/18 02:10 Medications: Current Medications Acetaminophen (Tylenol) 650 mg PO Q4H PRN PRN Reason: Headache/Fever/Mild Pain (1-3) Last Admin: 03/18/18 00:34 Dose: 650 mg Amiodarone HCl (Cordarone) 400 mg PO TID [facility] Last Admin: 03/26/18 08:06 Dose: 400 mg Apixaban (Eliquis) 5 mg PO BID [facility] Last Admin: 03/26/18 08:06 Dose: 5 mg Aspirin (Aspirin Chewable) 81 mg PO DAILY [facility] Last Admin: 03/26/18 08:06 Dose: 81 mg Atorvastatin Calcium (Lipitor) 20 mg PO [facility] Last Admin: 03/25/18 21:33 Dose: 20 mg Benztropine Mesylate (Cogentin) 1 mg PO HS [facility] Last Admin: 03/25/18 21:32 Dose: 1 mg Cyanocobalamin (Vitamin B-12) 1,000 mcg SC Q7D [facility] Last Admin: 03/24/18 08:18 Dose: 1,000 mcg Dextrose/Water (Dextrose 50%) 25 gm SLOW IVP PRN PRN PRN Reason: Hypoglycemia Digoxin (Lanoxin) 0.25 mg PO DAILY [facility] Last Admin: 03/26/18 08:05 Dose: 0.25 mg Diltiazem HCl (Cardizem) 30 mg PO BID [facility] Last Admin: 03/26/18 08:06 Dose: 30 mg Famotidine (Pepcid) 20 mg PO DAILY [facility] Last Admin: 03/26/18 08:07 Dose: 20 mg Gabapentin (Neurontin) 600 mg PO DAILY [facility] Last Admin: 03/26/18 08:05 Dose: 600 mg Glucagon (Glucagon) 1 mg IM PRN PRN PRN Reason: Hypoglycemia Haloperidol (Haldol) 5 mg PO [facility] Last Admin: 03/25/18 21:32 Dose: 5 mg Dextrose/Water (D5w) 1,000 mls @ 0 mls/hr IV .Q0M PRN PRN Reason: Hypoglycemia Diltiazem HCl 125 mg/ Sodium (Chloride) 125 mls @ 10 mls/hr IVPB INF [facility]; Protocol Last Admin: 03/26/18 06:24 Dose: 125 mls Insulin Human Lispro (Humalog) 0 units SC .MILD SLIDING SCALE PRN PRN Reason: Mild Correctional Scale Last Admin: 03/26/18 11:23 Dose: 3 unit Iron/Minerals/Multivitamins (Theragran M) 1 tab PO DAILY [facility] Last Admin: 03/26/18 08:06 Dose: 1 tab Lisinopril (Zestril) 10 mg PO DAILY [facility] Last Admin: 03/26/18 08:06 Dose: 10 mg Metformin HCl (Glucophage) 500 mg PO TID-WM [facility] Last Admin: 03/26/18 11:24 Dose: 500 mg Pioglitazone HCl (Actos) 45 mg PO DAILY [facility] Last Admin: 03/26/18 08:07 Dose: 45 mg Sodium Chloride (Flush - Normal Saline) 10 ml IVF Q12HR [facility] Last Admin: 03/26/18 08:07 Dose: 10 ml Sodium Chloride (Flush - Normal Saline) 10 ml IVF PRN PRN PRN Reason: Saline Flush Tamsulosin HCl (Flomax) 0.4 mg PO BID [facility] Last Admin: 03/26/18 08:06 Dose: 0.4 mg Tramadol HCl (Ultram) 50 mg PO Q6H PRN PRN Reason: Pain 4-6 Last Admin: 03/25/18 21:33 Dose: 50 mg
[2018-03-26] MEDS: Atorvastatin Calcium 20 MG TAB PO SCH (21:12)
[2018-03-26] MEDS: Haloperidol 5 MG TAB PO SCH (21:12)
[2018-03-26] MEDS: Benztropine 1 MG TAB PO SCH (21:13)
[2018-03-27 00:48] LABS: #Eosinphils 0.1 thou/uL (0.0-0.7); #Lymphocytes 0.7 thou/uL (1.20-3.40); #Monocytes 0.6 thou/uL (0.11-0.59); #Neutrophils 7.1 thou/uL (1.40-6.50); %Eosinophils 0.6 % (0.0-10.0); %Lymphocytes 7.8 % (21.0-51.0); %Monocytes 7.1 % (0.0-10.0); %Neutrophils 84.4 % (42.0-75.0); Hemoglobin 10.8 g/dL (14.0-18.0); Mean Corpuscular HGB CONC 32.6 g/dL (32.0-36.0); Mean Platelet Volume 6.6 fL (7.4-10.4); Platelet Count 121 thou/uL (130-400); RBC Distribution Width 12.3 % (11.5-14.5); Red Blood Cell (RBC) Count 3.49 mill/uL (4.70-6.10); White Blood Cell (WBC) Count 8.4 thou/uL (4.8-10.8)
[2018-03-27] MEDS: Digoxin 0.25 MG TAB PO SCH (09:49)
[2018-03-27] MEDS: Tamsulosin HCl 0.4 MG CAP PO SCH ×2 (09:49→21:31)
[2018-03-27] MEDS: Gabapentin 300 MG CAP PO SCH (09:49)
[2018-03-27] MEDS: Multivitamin W/ Minerals 1 TAB PO SCH (09:49)
[2018-03-27] MEDS: Amiodarone 200 MG TAB PO SCH ×3 (09:49→21:30)
[2018-03-27] MEDS: Pioglitazone HCl 45 MG TAB PO SCH (09:49)
[2018-03-27] MEDS: metFORMIN 500 MG TAB PO SCH ×3 (09:50→16:33)
[2018-03-27] MEDS: Lisinopril 10 MG TAB PO SCH (09:50)
[2018-03-27] MEDS: Famotidine 20 MG TAB PO SCH (09:50)
--- NOTE | 2018-03-27 11:22 | PDOC.PN ---
- Subjective Encounter Start Date: 03/27/18 Encounter Start Time: 10:30 Subjective: no chest pain or sob or palp -: is watching tv, had his breakfast - Objective Resuscitation Status - Order Detail: 03/21/18 12:15 Resuscitation Status Routine Resuscitation Status: FULL: Full Resuscitation Discussed with: per previous order MAR Reviewed: Yes Vital Signs & Weight: Vital Signs (12 hours) Temp Pulse Resp BP BP Pulse Ox 03/27/18 09:50 128/68 03/27/18 09:49 80 03/27/18 08:00 97.7 F 80 18 128/68 94 L 03/27/18 03:22 97.7 F 68 14 126/61 93 L 03/27/18 01:35 53 L 16 121/54 L 03/27/18 00:07 98.4 F 64 16 107/58 L 94 L Weight Admit Weight 168 lb 14.4 oz Weight 202 lb 6.4 oz Most Recent Monitor Data Heart Rate from ECG 73 NIBP 168/101 NIBP BP-Mean 123 Respiration from ECG 15 SpO2 94 I&O: 03/26/18 03/27/18 03/28/18 06:59 06:59 06:59 Intake Total 998 1125 Output Total 850 300 Balance 148 825 Result Diagrams: 03/27/18 00:38 03/26/18 05:16 Additional Labs: Accuchecks 03/27/18 03/27/18 03/26/18 10:57 05:37 20:08 POC Glucose 192 H 169 H 210 H 03/26/18 17:08 POC Glucose 165 H Phys Exam - Physical Examination HEENT: PERRLA, moist MMs Neck: no JVD, supple Respiratory: no wheezing, no rales Cardiovascular: no significant murmur, irregular Gastrointestinal: soft, non-tender, positive bowel sounds Musculoskeletal: pulses present, edema present Neurological: non-focal, moves all 4 limbs Dx/Plan (1) Atrial fibrillation with RVR Code(s): I48.91 - UNSPECIFIED ATRIAL FIBRILLATION Status: Acute Comment: recurrent rvr (2) Demand ischemia of myocardium Code(s): I24.8 - OTHER FORMS OF ACUTE ISCHEMIC HEART DISEASE Status: Acute (3) UTI (urinary tract infection) Status: Resolved Qualifiers: Urinary tract infection type: acute cystitis Hematuria presence: without hematuria Qualified Code(s): N30.00 - Acute cystitis without hematuria (4) HLD (hyperlipidemia) Code(s): E78.5 - HYPERLIPIDEMIA, UNSPECIFIED Status: Chronic Qualifiers: Hyperlipidemia type: unspecified Qualified Code(s): E78.5 - Hyperlipidemia , unspecified (5) Bipolar disorder Code(s): F31.9 - BIPOLAR DISORDER, UNSPECIFIED Status: Chronic Qualifiers: Active/Remission status: remission status unspecified Qualified Code(s): F31.9 - Bipolar disorder, unspecified (6) DM2 (diabetes mellitus, type 2) Status: Chronic Qualifiers: Diabetes mellitus senior care insulin use: without senior care use Diabetes mellitus complication status: with unspecified complications Qualified Code(s) : E11.8 - Type 2 diabetes mellitus with unspecified complications (7) HTN (hypertension) Code(s): I10 - ESSENTIAL (PRIMARY) HYPERTENSION Status: Chronic Qualifiers: Hypertension type: essential hypertension Qualified Code(s): I10 - Essential (primary) hypertension (8) Physical deconditioning Code(s): R53.81 - OTHER MALAISE Status: Acute (9) PAD (peripheral artery disease) Code(s): I73.9 - PERIPHERAL VASCULAR DISEASE, UNSPECIFIED Status: Chronic (10) BPH (benign prostatic hyperplasia) Code(s): N40.0 - BENIGN PROSTATIC HYPERPLASIA WITHOUT LOWER URINRY TRACT SYMP Status: Chronic Qualifiers: Lower urinary tract symptom presence: symptoms present Lower urinary tract symptom detail: urinary retention Qualified Code(s): N40.1 - Benign prostatic hyperplasia with lower urinary tract symptoms; R33.8 - Other retention of urine Comment: has abdi, needs outpt urology appt after dc. - Plan off cardizem drip from 1.30 am, had 1 episode of blood in stool last night -: h/h stable now, will check at 3pm again, is on eliquis -: continue amiod, dig, cardizem bid, lisinopril -: may need EP consult if his afib with rvr recurs -: has severe deconditioning, has not amb so far, likely placement * . Review of Systems - Medications/Allergies Allergies/Adverse Reactions: Allergies Allergy/AdvReac Type Severity Reaction Status Date / Time No Known Drug Allergies Allergy Verified 03/16/18 02:10 Medications: Current Medications Acetaminophen (Tylenol) 650 mg PO Q4H PRN PRN Reason: Headache/Fever/Mild Pain (1-3) Last Admin: 03/18/18 00:34 Dose: 650 mg Amiodarone HCl (Cordarone) 400 mg PO TID [facility] Last Admin: 03/27/18 09:49 Dose: 400 mg Atorvastatin Calcium (Lipitor) 20 mg PO HS [facility] Last Admin: 03/26/18 21:12 Dose: 20 mg Benztropine Mesylate (Cogentin) 1 mg PO HS [facility] Last Admin: 03/26/18 21:13 Dose: 1 mg Cyanocobalamin (Vitamin B-12) 1,000 mcg SC Q7D [facility] Last Admin: 03/24/18 08:18 Dose: 1,000 mcg Dextrose/Water (Dextrose 50%) 25 gm SLOW IVP PRN PRN PRN Reason: Hypoglycemia Digoxin (Lanoxin) 0.25 mg PO DAILY [facility] Last Admin: 03/27/18 09:49 Dose: 0.25 mg Diltiazem HCl (Cardizem) 30 mg PO BID [facility] Last Admin: 03/27/18 09:50 Dose: 30 mg Famotidine (Pepcid) 20 mg PO DAILY [facility] Last Admin: 03/27/18 09:50 Dose: 20 mg Gabapentin (Neurontin) 600 mg PO DAILY [facility] Last Admin: 03/27/18 09:49 Dose: 600 mg Glucagon (Glucagon) 1 mg IM PRN PRN PRN Reason: Hypoglycemia Haloperidol (Haldol) 5 mg PO HS [facility] Last Admin: 03/26/18 21:12 Dose: 5 mg Dextrose/Water (D5w) 1,000 mls @ 0 mls/hr IV .Q0M PRN PRN Reason: Hypoglycemia Diltiazem HCl 125 mg/ Sodium (Chloride) 125 mls @ 10 mls/hr IVPB INF [facility]; Protocol Last Admin: 03/26/18 17:24 Dose: 125 mls Insulin Human Lispro (Humalog) 0 units SC .MILD SLIDING SCALE PRN PRN Reason: Mild Correctional Scale Last Admin: 03/26/18 17:24 Dose: 2 unit Iron/Minerals/Multivitamins (Theragran M) 1 tab PO DAILY [facility] Last Admin: 03/27/18 09:49 Dose: 1 tab Lisinopril (Zestril) 10 mg PO DAILY [facility] Last Admin: 03/27/18 09:50 Dose: 10 mg Metformin HCl (Glucophage) 500 mg PO TID-WM [facility] Last Admin: 03/27/18 09:50 Dose: 500 mg Pioglitazone HCl (Actos) 45 mg PO DAILY [facility] Last Admin: 03/27/18 09:49 Dose: 45 mg Sodium Chloride (Flush - Normal Saline) 10 ml IVF Q12HR [facility] Last Admin: 03/27/18 09:51 Dose: 10 ml Sodium Chloride (Flush - Normal Saline) 10 ml IVF PRN PRN PRN Reason: Saline Flush Tamsulosin HCl (Flomax) 0.4 mg PO BID [facility] Last Admin: 03/27/18 09:49 Dose: 0.4 mg Tramadol HCl (Ultram) 50 mg PO Q6H PRN PRN Reason: Pain 4-6 Last Admin: 03/25/18 21:33 Dose: 50 mg
[2018-03-27 11:30] VITALS: BMI 33.7
[2018-03-27] MEDS ORDERED: Prevnar 13-Val Conj/PF 0.5 ML SYRINGE IM ONE (12:15)
[2018-03-27] MEDS: HumaLOG 300 UNITS/3 ML VIAL SC PRN (13:44)
--- NOTE | 2018-03-27 14:17 | PRG ---
DATE OF SERVICE: SUBJECTIVE: Isaiah Modi has no complaints. OBJECTIVE: VITAL SIGNS: He is afebrile. Heart rate 80, blood pressure 128/68, and oximetry is 94% on room air. LUNGS: Clear. HEART: Regular rhythm. ABDOMEN: Soft and nontender. ASSESSMENT: Cardiology has not seen him since Tuesday. From a pulmonary standpoint, he remains stable. He is extremely deconditioned and in bed every time I walk in the room. When he came in, he told me he had 2 good walkers at home. Continue supportive care. Job ID: [id number]
[2018-03-27 16:52] LABS: Hemoglobin 11.3 g/dL (14.0-18.0); Platelet Count 133 thou/uL (130-400)
--- NOTE | 2018-03-27 17:12 | PDOC.CTH ---
Cardiology Progress Note - Subjective He went back into afib over the weekend and had to be place dont a diltiazem drip. Currently now off the drip and rate controlled. - Objective Vital Signs Temp Pulse Pulse Pulse Resp BP BP 03/27/18 16:00 97.7 F 73 18 03/27/18 14:05 88 77 133/75 03/27/18 12:00 97.9 F 99 18 03/27/18 10:21 94 94 113/77 03/27/18 09:50 128/68 03/27/18 09:49 80 03/27/18 08:00 97.7 F 80 18 BP BP Pulse Ox 03/27/18 16:00 139/65 03/27/18 14:05 141/78 H 03/27/18 12:00 146/72 H 03/27/18 10:21 146/72 H 03/27/18 09:50 03/27/18 09:49 03/27/18 08:00 128/68 95 Admit Weight 168 lb 14.4 oz Weight 202 lb 6.4 oz 03/26/18 03/27/18 03/28/18 06:59 06:59 06:59 Intake Total 998 1125 Output Total 850 300 Balance 148 825 - Physical Examination General/Neuro: alert & oriented x3, NAD Neck: no JVD present Lungs: CTA, unlabored respirations Heart: other: (Irreg) Abdomen: NT/ND Extremities: + edema B (1+) - Telemetry Telemetry Rhythm: Afib HR 70-90 - Labs Result Diagrams: 03/27/18 16:39 03/26/18 05:16 Troponin/CKMB CK-MB (CK-2) 1.9 ng/mL (0-6.6) 03/15/18 18:30 Troponin I 0.184 ng/mL (< 0.028) H 03/18/18 13:45 - Assessment/Plan 1. Paroxysmal Afib RVR. Now in sinus rate controlled afib. 3. HTN. 4. UTI on antibiotics. 5. Elevated troponin. Demand ischemia.. PLAN: - Will increase dose of CCB, continue PO Dig. - Continue Amiodarone PO load and Eliquis. Amildarone 400 mg TID for the next 5 days and then 200 mg daily. - Will elect to continue rate control for now, may discharge to NH when needed.
[2018-03-27] MEDS: Atorvastatin Calcium 20 MG TAB PO SCH (21:31)
[2018-03-27] MEDS: Haloperidol 5 MG TAB PO SCH (21:31)
[2018-03-27] MEDS: Benztropine 1 MG TAB PO SCH (21:31)
[2018-03-28] MEDS: Pioglitazone HCl 45 MG TAB PO SCH (09:13)
[2018-03-28] MEDS: Digoxin 0.25 MG TAB PO SCH (09:13)
[2018-03-28] MEDS: Gabapentin 300 MG CAP PO SCH (09:13)
[2018-03-28] MEDS: metFORMIN 500 MG TAB PO SCH ×2 (09:14→14:26)
[2018-03-28] MEDS: Amiodarone 200 MG TAB PO SCH ×2 (09:14→14:26)
[2018-03-28] MEDS: Tamsulosin HCl 0.4 MG CAP PO SCH (09:14)
[2018-03-28] MEDS: Lisinopril 10 MG TAB PO SCH (09:14)
[2018-03-28] MEDS: Multivitamin W/ Minerals 1 TAB PO SCH (09:14)
[2018-03-28] MEDS: Famotidine 20 MG TAB PO SCH (09:15)
--- NOTE | 2018-03-28 09:55 | CON ---
DATE OF CONSULTATION: 03/27/2018 REASON FOR CONSULTATION: Hematochezia. HISTORY OF PRESENT ILLNESS: Isaiah Modi is a very pleasant 72-year-old male who for almost 2 weeks ago suffered with atrial fibrillation and fast ventricular rate. Initially, he was on amiodarone and also on Eliquis. He was seen by Cardiology and has had a KATIE done by Dr. Ramirez. The KATIE did not show any pathology. Apparently, he has had similarly episodes couple of years ago and was seen by Dr. Anil Martínez at that time. The patient reverted back to sinus rhythm now, but last time he went back to atrial fibrillation with fast ventricular rate and he had been placed on Cardizem drip. The patient had one episode of hematochezia yesterday. The patient has no abdominal pain, no nausea, no vomiting. Today, he had 2 more bloody stools. Per the nursed, the blood was bright red and not tarry. The blood was mixed with the stool. I did a rectal exam right at the bedside and the rectal exam did not show any hemorrhoids and no masses felt. I could obtain some blood-stained mucus on my finger, but I do not see any active bleeding. The Eliquis had been withheld today. The patient denies similar episodes in the past. He says his bowel movements has been regular and he does not have any bleeding in the past. The patient never had a colonoscopy in the past. At present, he appears very comfortable. There is no abdominal pain, nausea, or vomiting. He has no relevant history. ALLERGIES: NONE. SOCIAL HISTORY: The patient chews tobacco. Denies any alcohol abuse. No history of smoking in the past. PAST MEDICAL HISTORY: 1. Type 2 diabetes mellitus. 2. Obesity. 3. Hypertension. 4. Bipolar disorder. 5. Dyslipidemia. 6. Chronic thrombocytopenia. 7. Atrial fibrillation with fast ventricular rate. PAST SURGICAL HISTORY: He has had a left foot surgery. FAMILY HISTORY: Both parents are and also he had 2 brothers who of unknown cause. There is no family history of any real malignancy, heart disease, CVA, or diabetes. MEDICATIONS: Medication list reviewed. REVIEW OF SYSTEMS: CONSTITUTIONAL: No history of weight loss. No history of any fever . He is not very ambulatory. RESPIRATORY: No history of chronic cough, hemoptysis, dyspnea. CARDIOVASCULAR: No chest pain, no palpitation. No orthopnea or PND. GI: No abdominal pain, no nausea, no vomiting. No dysphagia or odynophagia. : No dysuria, hematuria, or frequent urination. MUSCULOSKELETAL, ENDOCRINE, HEMATOLOGIC: Unremarkable. PSYCHIATRIC: He has history of bipolar disorder. PHYSICAL EXAMINATION: GENERAL: The patient is awake, alert, and communicative. He is in no distress. VITAL SIGNS: At the present time, he is afebrile, pulse is 99, blood pressure 146/72. HEENT: Conjunctivae clear. NECK: Supple. No adenitis or thyromegaly. LUNGS: Clear to auscultation. ABDOMEN: Soft. . Abdomen is nontender. No masses. RECTAL: Done at bedside, no active bleeding seen. Rectum is actually empty. I obtained some blood-stained mucus. LABORATORY DATA: The hemoglobin remains the same as before. On 02/17/2018, his hemoglobin was 10.5. For the next several days, it remained on 10.8 , 10.8 etc. Serum chemistries from yesterday, sodium 138, potassium 3.9, chloride 106, bicarbonate 23, BUN is 20, creatinine is 0.75, glucose 150, calcium 8.6. CLINICAL IMPRESSION: 1. A 72-year-old male with cardiac arrhythmia, he is on anticoagulation. He had evidence of rectal bleeding yesterday one time and today two times. Interestingly, his blood count remains the same. Also, rectal exam done did not show any active bleeding. He never had a colonoscopy in the past. It is possible that the patient could have a lesion just above my exam finger. 2. Type 2 diabetes. 3. Cardiac arrhythmia. 4. Bipolar disorder. 5. Rectal bleeding, etiology unclear. RECOMMENDATIONS: As follows: 1. Followup H and H. 2. I did speak to Mr. Modi about having a colonoscopy. He is agreeable. 3. Plan to keep him on a clear liquid diet from tomorrow and hopefully get a colonoscopy done on Tuesday. As he needs to be on long-term anticoagulation, I believe he probably needs colonoscopy before discharge. I did talk to Mr. Modi and he is agreeable. I will plan for colonoscopy hopefully on Tuesday after stopping the anticoagulation for 48 hours. Job ID: [id number]
--- NOTE | 2018-03-28 13:38 | PRG ---
DATE OF SERVICE: 03/28/2018 SUBJECTIVE: Isaiah Modi has no new complaints. He is back in atrial fibrillation. His rate is controlled anywhere from the 70s to 90s. OBJECTIVE: VITAL SIGNS: He is afebrile, oximetry 95 on room air, and blood pressure 125/58. LUNGS: Clear. HEART: Irregular. ABDOMEN: Soft and nontender. EXTREMITIES: Without edema. LABORATORY DATA: Hemoglobin yesterday was 11.3. Creatinine was 0.75 on the 2nd. IMPRESSION: 1. Atrial fibrillation, status post cardioversion, recurrent. The focus is rate control. 2. Deconditioning. 3. Reported hematochezia. He had no bleeding on rectal exam. PLAN: This is being addressed by Dr. Branch. We will continue to follow. His hemoglobin is stable. His hemodynamics are stable. Job ID: [id number] MTDD
--- NOTE | 2018-03-28 15:40 | PDOC.PN ---
- Subjective Encounter Start Date: 03/28/18 Encounter Start Time: 10:00 Subjective: no chest pain or palp -: feels good - Objective Resuscitation Status - Order Detail: 03/21/18 12:15 Resuscitation Status Routine Resuscitation Status: FULL: Full Resuscitation Discussed with: per previous order MAR Reviewed: Yes Vital Signs & Weight: Vital Signs (12 hours) Temp Pulse Resp BP BP Pulse Ox 03/28/18 09:14 125/58 L 03/28/18 09:13 95 03/28/18 08:00 97.7 F 95 20 125/58 L 95 03/28/18 04:00 97.8 F 76 18 122/58 L 91 L Weight Admit Weight 168 lb 14.4 oz Weight 202 lb 14.4 oz Most Recent Monitor Data Heart Rate from ECG 73 NIBP 168/101 NIBP BP-Mean 123 Respiration from ECG 15 SpO2 94 I&O: 03/27/18 03/28/18 03/29/18 06:59 06:59 06:59 Intake Total 1125 690 Output Total 300 950 Balance 825 -260 Result Diagrams: 03/27/18 16:39 03/26/18 05:16 Additional Labs: Accuchecks 03/28/18 03/28/18 03/27/18 10:55 05:17 20:17 POC Glucose 189 H 133 H 134 H 03/27/18 16:54 POC Glucose 137 H Phys Exam - Physical Examination HEENT: PERRLA, moist MMs Neck: no JVD, supple Respiratory: no wheezing, no rales Cardiovascular: no significant murmur, irregular Gastrointestinal: soft, non-tender, positive bowel sounds Musculoskeletal: pulses present, edema present Neurological: non-focal, moves all 4 limbs Dx/Plan (1) Atrial fibrillation with RVR Code(s): I48.91 - UNSPECIFIED ATRIAL FIBRILLATION Status: Acute Comment: recurrent rvr, rate controlled now (2) Demand ischemia of myocardium Code(s): I24.8 - OTHER FORMS OF ACUTE ISCHEMIC HEART DISEASE Status: Acute (3) UTI (urinary tract infection) Status: Resolved Qualifiers: Urinary tract infection type: acute cystitis Hematuria presence: without hematuria Qualified Code(s): N30.00 - Acute cystitis without hematuria (4) HLD (hyperlipidemia) Code(s): E78.5 - HYPERLIPIDEMIA, UNSPECIFIED Status: Chronic Qualifiers: Hyperlipidemia type: unspecified Qualified Code(s): E78.5 - Hyperlipidemia , unspecified (5) Bipolar disorder Code(s): F31.9 - BIPOLAR DISORDER, UNSPECIFIED Status: Chronic Qualifiers: Active/Remission status: remission status unspecified Qualified Code(s): F31.9 - Bipolar disorder, unspecified (6) DM2 (diabetes mellitus, type 2) Status: Chronic Qualifiers: Diabetes mellitus senior care insulin use: without senior care use Diabetes mellitus complication status: with unspecified complications Qualified Code(s) : E11.8 - Type 2 diabetes mellitus with unspecified complications (7) HTN (hypertension) Code(s): I10 - ESSENTIAL (PRIMARY) HYPERTENSION Status: Chronic Qualifiers: Hypertension type: essential hypertension Qualified Code(s): I10 - Essential (primary) hypertension (8) Physical deconditioning Code(s): R53.81 - OTHER MALAISE Status: Acute (9) PAD (peripheral artery disease) Code(s): I73.9 - PERIPHERAL VASCULAR DISEASE, UNSPECIFIED Status: Chronic (10) BPH (benign prostatic hyperplasia) Code(s): N40.0 - BENIGN PROSTATIC HYPERPLASIA WITHOUT LOWER URINRY TRACT SYMP Status: Chronic Qualifiers: Lower urinary tract symptom presence: symptoms present Lower urinary tract symptom detail: urinary retention Qualified Code(s): N40.1 - Benign prostatic hyperplasia with lower urinary tract symptoms; R33.8 - Other retention of urine Comment: has abdi, needs outpt urology appt after dc. - Plan has been accepted to [facility], will dc pt -: to f/u with as adv -: he needs to call 's office for outpt appt for u.retention/fole * .
[2018-03-28 16:34] VITALS: BP 125/65; TEMP 97.6
[2018-03-28] MEDS ORDERED: GoLYTELY 4,000 ml Bottle PO SCH (17:00)
--- NOTE | 2018-03-28 17:34 | PDOC.CTH ---
Cardiology Progress Note - Subjective He is doing well. No new complaints. - Objective Vital Signs Temp Pulse Resp BP BP Pulse Ox 03/28/18 16:00 97.6 F 85 16 125/65 03/28/18 12:00 97.6 F 83 16 129/74 03/28/18 09:14 125/58 L 03/28/18 09:13 95 03/28/18 08:00 97.7 F 95 20 125/58 L 95 Admit Weight 168 lb 14.4 oz Weight 202 lb 14.4 oz 03/27/18 03/28/18 03/29/18 06:59 06:59 06:59 Intake Total 1125 690 Output Total 300 950 Balance 825 -260 - Physical Examination General/Neuro: alert & oriented x3, NAD Neck: no JVD present Lungs: CTA, unlabored respirations Heart: RRR Abdomen: NT/ND Extremities: other: (no edema.) - Telemetry Telemetry Rhythm: Afib HR 80's - Labs Result Diagrams: 03/27/18 16:39 03/26/18 05:16 Troponin/CKMB CK-MB (CK-2) 1.9 ng/mL (0-6.6) 03/15/18 18:30 Troponin I 0.184 ng/mL (< 0.028) H 03/18/18 13:45 - Assessment/Plan 1. Paroxysmal Afib RVR. Now in sinus rate controlled afib. 3. HTN. 4. UTI on antibiotics. 5. Elevated troponin. Demand ischemia.. PLAN: - Continue current meds. - Continue Amiodarone PO load and Eliquis. Amildarone 400 mg TID for the next 4 days and then 200 mg daily. - Continue rate control. - May discharge to ID any time from cardiac perspective.
--- NOTE | 2018-03-28 17:37 | DIS ---
DATE OF ADMISSION: 03/15/2018 DATE OF DISCHARGE: 03/28/2018 DISCHARGE DISPOSITION: [facility]. PRIMARY DISCHARGE DIAGNOSES: Recurrent atrial fibrillation, which is rate controlled at present; demand ischemia; urinary tract infection; labile hypertension, which is stabilized; severe deconditioning. SECONDARY DISCHARGE DIAGNOSES: Bipolar disorder, diabetes mellitus type 2, dyslipidemia, hypertension, benign prostatic hypertrophy, peripheral vascular disease, urinary retention with indwelling Urbina. PROCEDURES DONE DURING HOSPITALIZATION: 1. The patient has had echo with 2D Doppler done on the , which showed EF of 60% to 65%. Severely dilated left atrium with left atrial dimensions of 4.99 cm. 2. The patient had a transesophageal echo done on 03/23/2018, which showed EF of 45% to 50%. No thrombus was seen. There was confirmation of severely dilated left atrium, large atrial appendage without evidence of mass or thrombus. 3. Had cardioversion done on the same day, that is 03/23/2018, by Dr. Ramirez. He was given one single synchronized shock at 150 joules with successful conversion to sinus rhythm. 4. Urine culture grew E. coli sensitive to most antibiotics except ampicillin and sulfa. 5. Blood cultures x2, no growth. 6. Discharge hemoglobin and hematocrit were 11 and 34, platelet count 133. BUN and creatinine were 20 and 0.7 on the 26 of March. BNP was 420 on the day of admission. Troponin was indeterminate, peaking up to 0.1. CK-MB 1.9. BUN and creatinine were 37 and 1.26 on admission. UA showed small leukocyte esterase with 4+ bacteria and 4 to 6 wbc's on admission. DISCHARGE MEDICATIONS: 1. Aspirin 81 mg p.o. daily. 2. Lipitor 40 mg p.o. daily. 3. Cogentin 1 mg p.o. at bedtime. 4. Pepcid 20 mg p.o. daily. 5. Haldol 5 mg p.o. at bedtime. 6. Metformin 500 mg p.o. three times daily. 7. Multivitamin one tablet once daily. 8. Actos 45 mg p.o. daily. 9. MiraLAX 17 g daily. 10. Amiodarone 400 mg p.o. three times daily for five days, then 200 mg p.o. daily thereafter. 11. Eliquis 5 mg p.o. twice daily. 12. Digoxin 0.25 mg p.o. daily. 13. Cardizem 60 mg p.o. twice daily. 14. Flomax 0.4 mg p.o. twice daily. 15. Lisinopril 10 mg p.o. daily. 16. Ultram p.r.n. for pain. ALLERGIES: NO KNOWN DRUG ALLERGIES. INPATIENT CONSULTS: Dr. Ramirez for Cardiology, Dr. Gonzalez for Pulmonology and Critical Care. DISCHARGE PLAN: The patient to follow up with Dr. Ramirez in 2 weeks. He also needs outpatient appointment with Dr. Gomez, this needs to be set up from his [facility] facility for indwelling Urbina catheter with urinary retention from BPH. BRIEF COURSE DURING HOSPITALIZATION: The patient initially was brought to emergency room on the with complaints of generalized weakness. He was found to be in atrial fibrillation with RVR. He was given multiple medications in the ER, but the patient had persistent atrial fibrillation with RVR and had to be placed on Cardizem drip. He was admitted to [facility]. The patient had labile hypertension as well with at times becoming hypotensive. He had demand ischemia as well from atrial fibrillation. The patient was on multiple AV jenna blockers despite which he had persistent atrial fibrillation with rapid ventricular rate. He has had consultation with Dr. Ramirez. Finally, the patient had cardioversion done on the after KATIE revealed no thrombus. The patient was in sinus rhythm for 24 hours and converted back to atrial fibrillation. His atrial fibrillation is currently rate controlled with the rates anywhere from 80 to 100. He has known history of benign prostatic hypertrophy and had urinary retention during his stay and had to have a Urbina catheter placed due to residual volumes going up to more than 400 x2. He needs to call Dr. Gomez, urologist office in 2 weeks for appointment in the outpatient setting for the same. He will be having his Urbina catheter at the time of discharge. The patient has severe deconditioning and has barely stood up with physical therapy here. He is being discharged to shelter facility for further recuperation and to mobilize himself. He normally ambulates with a rolling walker and mobilizes himself in the house. When he is able to do this at the [facility], he can be safely discharged to home. A total of 35 minutes was spent on discharge plan. Please see a [id number] documentation on [employer] for the day of discharge. Job ID: [id number] MTDD
--- NOTE | 2018-03-29 18:19 | PRG ---
DATE OF SERVICE: 03/28/2018 SUBJECTIVE: This is a 72-year-old male, who was hospitalized with atrial fibrillation with fast ventricular rate. His rate was controlled with amiodarone as well as an IV Cardizem drip. He had an episode of hematochezia on Tuesday night and yesterday. His Eliquis has been on hold. He was started on clear liquid diet today. abdominal pain. No nausea or vomiting. He had normal breathing through the night and this morning. He also has no complaints. His blood count has been fairly stable. OBJECTIVE: GENERAL: Appears comfortable. VITAL SIGNS: Afebrile, pulse is 95, blood pressure is 125/58. CARDIOVASCULAR: First and second heart sounds heard. LUNGS: Clear to auscultation. ABDOMEN: Soft. No organomegaly. No tenderness. No masses. CLINICAL IMPRESSION: 1. Cardiac arrhythmia, controlled with medical therapy. 2. Hematochezia, etiology unclear. Rectal exam did not see any hemorrhoid. PLAN: Colonoscopy tomorrow. I did talk to Mr. Modi and I explained about the procedure in detail. The bowel prep Lisbeth and also the procedure were explained to the patient. I will prep the patient today for a colonoscopy tomorrow. Job ID: [id number]
== END 2018-03-28 18:03 | DRG 309 ==
LOC: ERS 17:39 → 2NO 19:25 → CCU 03-18 06:04 → 2NO 03-18 16:37 → CCU 03-19 13:41 → 2NO 03-24 05:24
PROVIDERS: ADMIT Internal Medicine; ATTEND Internal Medicine
PROC: 5A2204Z Restoration of Cardiac Rhythm, Single (ICD-10-PCS; principal; 2018-03-23)
PROC: B246ZZ4 Ultrasonography of Right and Left Heart, Transesophageal (ICD-10-PCS; 2018-03-23)
DX: I48.0 Paroxysmal atrial fibrillation (principal); I24.8 Other forms of acute ischemic heart disease; N30.00 Acute cystitis without hematuria; K92.1 Melena; I48.92 Unspecified atrial flutter; I10 Essential (primary) hypertension; F31.9 Bipolar disorder, unspecified; E78.5 Hyperlipidemia, unspecified; D69.6 Thrombocytopenia, unspecified; B96.20 Unspecified Escherichia coli [E. coli] as the cause of diseases classified elsewhere; E11.51 Type 2 diabetes mellitus with diabetic peripheral angiopathy without gangrene; N40.1 Benign prostatic hyperplasia with lower urinary tract symptoms; I95.2 Hypotension due to drugs; T50.905A Adverse effect of unspecified drugs, medicaments and biological substances, initial encounter
CPT/HCPCS: 36415; 36416; 71045; 80048; 80053; 80162; 81001; 82533; 82553; 83605; 83880; 84484; 85025; 85379; 87040; 87077; 87086; 87186; 90471; 90662; 90670; 92960; 93005; 93010; 93306; 93312; 96372; 96374; G0008; G0009; G8978-GP-CM; G8979-GP-CK; G8987-GO-CM; G8988-GO-CK; J0282; J0461; J0696; J1160; J1265; J1610; J1650; J2270; J2543; J2704; J3420; J7050; J7070

== ENCOUNTER 2018-04-01 14:53 | Inpatient (IN) | payer MEDICARE, MEDICAID ==
[2018-04-01 15:29] LABS: Bilirubin Negative (Negative); Blood, Urine Large (Negative); Clarity CLEAR (Clear); Glucose, Urine (Dipstick) Negative (Negative); Leukocyte Negative (Negative); Nitrite Negative (Negative); Protein, Urine (Dipstick) Negative (Neg-Trace); Specific Gravity, Urine 1.005 (1.002-1.036); Urobilinogen 0.2 mg/dL (0.2-1.0)
[2018-04-01 15:32] LABS: Bacteria/HPF None Seen HPF (None Seen); Hyaline Casts/LPF 0-3 HYALINE CAST LPF (0-3 Hyaline); Pathc Cast-AUWi Flag 0.58 (0-2.49); Squamous Epithelial None Seen HPF (0-3); WBC/HPF None Seen HPF (0-3)
[2018-04-01 15:43] LABS: #Lymphocytes 0.6 thou/uL (1.20-3.40); #Monocytes 0.3 thou/uL (0.11-0.59); #Neutrophils 4.3 thou/uL (1.40-6.50); %Basophils 0.5 % (0.0-1.0); %Eosinophils 0.6 % (0.0-10.0); %Lymphocytes 10.5 % (21.0-51.0); %Monocytes 6.4 % (0.0-10.0); %Neutrophils 82.1 % (42.0-75.0); Hemoglobin 11.4 g/dL (14.0-18.0); Mean Corpuscular HGB CONC 33.2 g/dL (32.0-36.0); Mean Corpuscular Hemoglobin 31.4 pg (27.0-31.0); Mean Corpuscular Volume 94.6 fL (78.0-98.0); Mean Platelet Volume 6.2 fL (7.4-10.4); Platelet Count 155 thou/uL (130-400); RBC Distribution Width 12.5 % (11.5-14.5); Red Blood Cell (RBC) Count 3.62 mill/uL (4.70-6.10); White Blood Cell (WBC) Count 5.2 thou/uL (4.8-10.8)
--- NOTE | 2018-04-01 15:46 | RAD ---
PORTABLE CHEST: DATE: 04/01/2018. PROVIDED CLINICAL HISTORY: Dyspnea. FINDINGS: Comparison 03/15/2018. Cardiac silhouette is prominent, likely at least partially on the basis of po rtable technique. There is bibasilar pleural parenchymal opacity present. There is no evidence for pneumothorax. IMPRESSION: Bilateral lower lung zone pleural and parenchymal opacities. Pleural fluid with adjacent volume loss and/or pneumonia are possible. Followup is recommended. POS: FUAD
[2018-04-01 16:06] LABS: ALT (SGPT) 21 U/L (8-55); AST (SGOT) 15 U/L (5-34); Albumin 3.2 g/dL (3.4-4.8); Alkaline Phosphatase 86 U/L (40-150); Anion Gap 17 mmol/L (10-20); BUN (Urea Nitrogen) 24 mg/dL (8.4-25.7); Bilirubin, Total 0.6 mg/dL (0.2-1.2); CK (CPK) 39 U/L (30-200); Calc. Creatinine Clearance 0 mL/min (70-130); Carbon Dioxide 28 mmol/L (23-31); Chloride 99 mmol/L (98-107); Estimated GFR-MDRD 75; Globulin 3.2 g/dL (2.4-3.5); Glucose 210 mg/dL (83-110); Potassium 3.9 mmol/L (3.5-5.1); Protein, Total 6.4 g/dL (5.8-8.1); Sodium 140 mmol/L (136-145)
[2018-04-01] MEDS ORDERED: Piperacillin/Tazobactam 4.5 GM VIAL ONE (16:22)
[2018-04-01] MEDS ORDERED: Vancomycin HCl 1.5 GM in Sodium Chloride 0.9% 250 ML 300 ML IVPB SCH (16:30)
[2018-04-01 16:33] LABS: CKMB 2.5 ng/mL (0-6.6)
[2018-04-01] MEDS ORDERED: Acetaminophen 325 MG TAB PO PRN (18:23)
[2018-04-01] MEDS ORDERED: Dextrose 5% in Water 1,000 ML IV PRN (18:29)
[2018-04-01] MEDS ORDERED: Dextrose 50% Abboject 50 ML SYRINGE SLOW IVP PRN (18:29)
[2018-04-01] MEDS ORDERED: Furosemide 40 MG/4 ML VIAL SLOW IVP SCH (18:45)
[2018-04-01 19:13] LABS: Digoxin 1.49 ng/mL (0.8-2.0)
[2018-04-01 19:20] LABS: Critical Call Chem Troponin I RESULT DECREASING; Troponin I 0.424 ng/mL (< 0.028)
[2018-04-01 19:39] LABS: Lactic Acid 4.6 mmol/L (0.5-2.2)
[2018-04-01] MEDS ORDERED: Diltiazem HCl SR 60 mg Capsule PO SCH (21:00)
[2018-04-01] MEDS ORDERED: Vancomycin HCl 1 GM in Premix Bag 1 BAG IVPB SCH (21:00)
[2018-04-01 21:01] VITALS: BMI 30.2
[2018-04-01] MEDS: Amiodarone 200 MG TAB PO SCH (21:19)
[2018-04-01] MEDS: Apixaban 5 MG TAB PO SCH (21:19)
[2018-04-01] MEDS: Haloperidol 5 MG TAB PO SCH (21:19)
[2018-04-01 22:07] LABS: Troponin I 0.477 ng/mL (< 0.028)
[2018-04-02] MEDS: Piperacillin/Tazobactam 3.375 GM in Sodium Chloride 0.9% 100 ML IVPB SCH ×4 (00:02→16:48)
[2018-04-02 02:09] LABS: #Lymphocytes 0.3 thou/uL (1.20-3.40); #Monocytes 0.2 thou/uL (0.11-0.59); #Neutrophils 3.9 thou/uL (1.40-6.50); %Basophils 0.3 % (0.0-1.0); %Eosinophils 0.8 % (0.0-10.0); %Lymphocytes 7.2 % (21.0-51.0); %Monocytes 5.3 % (0.0-10.0); %Neutrophils 86.3 % (42.0-75.0); Hemoglobin 10.2 g/dL (14.0-18.0); Mean Corpuscular HGB CONC 33.7 g/dL (32.0-36.0); Mean Corpuscular Hemoglobin 31.5 pg (27.0-31.0); Mean Corpuscular Volume 93.4 fL (78.0-98.0); Mean Platelet Volume 6.2 fL (7.4-10.4); Platelet Count 137 thou/uL (130-400); RBC Distribution Width 12.4 % (11.5-14.5); Red Blood Cell (RBC) Count 3.24 mill/uL (4.70-6.10); White Blood Cell (WBC) Count 4.5 thou/uL (4.8-10.8)
[2018-04-02 02:23] LABS: Lactic Acid 1.5 mmol/L (0.5-2.2)
[2018-04-02 02:48] LABS: Anion Gap 14 mmol/L (10-20); BUN (Urea Nitrogen) 24 mg/dL (8.4-25.7); Calc. Creatinine Clearance 95 mL/min (70-130); Calcium 8.5 mg/dL (7.8-10.44); Carbon Dioxide 29 mmol/L (23-31); Chloride 100 mmol/L (98-107); Estimated GFR-MDRD 87; Glucose 179 mg/dL (83-110); Potassium 3.6 mmol/L (3.5-5.1); Sodium 139 mmol/L (136-145)
--- NOTE | 2018-04-02 03:52 | HP ---
CHIEF COMPLAINT: Shortness of breath. HISTORY OF PRESENT ILLNESS: This patient is a 72-year-old male, who recently was discharged from the hospital just a few days ago. The patient originally presented to the hospital after becoming profoundly weak and simply being unable to get up and walk. He was directly admitted from the ER to the rehab facility. From there, the patient was noted to be tachycardic and brought to the emergency department, where he was found to be in atrial fibrillation with RVR and was admitted when his atrial fibrillation could not be converted or rate controlled in the ER. The patient was seen by Cardiology and underwent an echocardiogram, which revealed a normal ejection fraction, but a dilated left atrium. He then underwent a KATIE with an EF of 45% to 50% with confirmation of a dilated left atrium with no clot in the atrial appendage and therefore, the patient had cardioversion. He was maintained on Coreg, Cardizem p.o., Eliquis, and digoxin, and appeared to be in sinus rhythm. He was still profoundly debilitated in general and [facility] The patient was only there a few days and has had progressive worsening shortness of breath and peripheral edema during that time. He has had a cough that has been wet, but is nonproductive. He denied any fevers, chills, or chest pain. He has had a chronic indwelling Urbina catheter since discharge because of some urine retention that he experienced during his previous admission as well. The patient has not been seen for this nor has he taken any medications for the cough. He did receive a dose of p.o. torsemide and IM Lasix at the nursing facility today because of significant peripheral edema. REVIEW OF SYSTEMS: The patient says he has been eating and drinking reasonably since he has been having normal bowel movements. Denies any musculoskeletal symptoms and all other systems were reviewed with all pertinent positives and negatives noted in the history of present illness. PAST MEDICAL HISTORY: Notable for atrial fibrillation, demand ischemia during his previous admission and with slightly elevated troponins, labile hypertension, bipolar disorder, diabetes mellitus type 2, hyperlipidemia, hypertension, BPH with bladder outlet obstruction, peripheral vascular disease, and urinary retention with short-term indwelling Urbina catheter. PAST SURGICAL HISTORY: Remote left foot surgery. SOCIAL HISTORY: The patient has not been a smoker. He did use smokeless tobacco on a regular basis. Denies any alcohol or drug use and is presently living in a nursing facility. The patient is unmarried. He has 2 sisters, who are with him today. He is full code and his sisters would be his surrogate decision maker should that become necessary. FAMILY HISTORY: Parents are . He has 4 brothers and 2 sisters. Two brothers of unknown causes. Two brothers and sisters are still living. ALLERGIES: NONE. HOME MEDICATIONS: 1. Tramadol 50 mg q.6 p.r.n. 2. Actos 45 mg daily. 3. Flomax 0.4 mg b.i.d. 4. Zestril 10 mg daily. 5. Lactulose 20 g p.o. t.i.d. p.r.n. 6. Sliding scale insulin. 7. Haldol 5 mg at bedtime. 8. Pepcid 20 b.i.d. 9. Diltiazem 60 mg b.i.d. 10. Lanoxin 0.25 daily. 11. Calcium 1000 mg p.o. q.6 hours p.r.n. 12. Aspirin 81 mg daily. 13. Eliquis 5 mg b.i.d. 14. Amiodarone 200 mg p.o. b.i.d. 15. Tylenol 650 q.4 hours p.r.n. PHYSICAL EXAMINATION: VITAL SIGNS: Temperature 98.8, pulse 76, respirations 18, O2 saturation 97% on 4 L nasal cannula, and blood pressure is 149/73. GENERAL APPEARANCE: Age-appropriate male, in no distress. He is a bit tachypneic, but conversant. HEENT: PERRL. Has no OP lesions. NECK: Supple and symmetric. There is 3 to 4 cm of JVD. HEART: Irregular with no murmurs noted. LUNGS: Diminished bilaterally, especially at the bases. No wheezes or rales are appreciated. ABDOMEN: Soft, nontender, and nondistended. Positive bowel sounds. No masses. No organomegaly. EXTREMITIES: Reveal 2+ pitting edema to the level of the knee bilaterally. LABORATORY DATA: White count 5.2, hemoglobin 11.4, and platelets 155. Sodium 140, potassium 3.9, chloride 99, CO2 is 28, BUN 24, creatinine 0.98, glucose 210. Lactic acid 2.8. Calcium 9.0. AST 15, ALT 21. Troponin 0.44. BNP 573. Albumin 3.2. Urinalysis shows some trace blood with 11 to 20 red blood cells. Chest x-ray shows significant bibasilar infiltrates. EMERGENCY ROOM COURSE: The patient received 40 mg of IV Lasix, vancomycin and Zosyn in the emergency department. He was originally started on BiPAP that has been weaned down to 4 L nasal cannula. IMPRESSION AND PLAN: 1. Acute hypoxic respiratory failure. It appears the patient likely has some pneumonia versus congestive heart failure. He is weaning down from the BiPAP. Continue with supplemental oxygen and admit to the IMCU. 2. I suspect the patient's pulmonary infiltrates are due to heart failure. He has evidence of JVD and substantial peripheral edema. It seems to have improved with Lasix therapy promptly. We will continue to diurese. Consult Cardiology for any additional input. 3. Possible pneumonia. The patient does not have fever or white count. He has symmetric bilateral infiltrates, which I suspect are more likely due to congestive heart failure; however, we will continue to cover with vancomycin and Zosyn until this is further elucidated. 4. Atrial fibrillation. The patient had a prior cardioversion with recurrence of his atrial fibrillation, it is rate controlled with amiodarone, digoxin, diltiazem and is anticoagulated with the Eliquis. 5. Diabetes mellitus. We will keep the patient on a reasonable diet and check Accu-Cheks and cover with sliding scale insulin. 6. History of bipolar disorder. Continue the patient's p.m. Haldol dose. Job ID: [id number]
--- NOTE | 2018-04-02 08:16 | RAD ---
PORTABLE CHEST DATE: 04/02/2018. PROVIDED CLINICAL HISTORY: Pneumonia. FINDINGS: Comparison 04/01/2018. Significant interval change with respect to the prior examination is not appar ent. IMPRESSION: As above. POS: FUAD
[2018-04-02] MEDS: Apixaban 5 MG TAB PO SCH (09:46)
[2018-04-02] MEDS: Lisinopril 10 MG TAB PO SCH (09:46)
[2018-04-02] MEDS: Amiodarone 200 MG TAB PO SCH ×2 (09:46→20:12)
--- NOTE | 2018-04-02 11:59 | PDOC.PN ---
- Subjective Encounter Start Date: 04/02/18 Encounter Start Time: 10:20 Feels a little better. Breathing more comfortably. - Objective Resuscitation Status - Order Detail: 04/01/18 18:23 Resuscitation Status Routine Resuscitation Status: FULL: Full Resuscitation Discussed with: Patient Vital Signs & Weight: Vital Signs (12 hours) Temp Pulse Resp BP BP Pulse Ox 04/02/18 09:46 134/67 04/02/18 09:40 96 04/02/18 08:00 98.6 F 80 16 137/66 96 04/02/18 04:00 98.2 F 74 12 141/62 H 98 04/01/18 23:56 99.3 F 78 20 111/56 L 98 Weight Weight 190 lb 6 oz I&O: 04/01/18 04/02/18 04/03/18 06:59 06:59 06:59 Intake Total 420 Output Total 1900 Balance -1480 Result Diagrams: 04/02/18 01:58 04/02/18 01:58 Additional Labs: Accuchecks 04/02/18 04/01/18 06:14 21:20 POC Glucose 158 H 194 H Phys Exam - Physical Examination Constitutional: NAD Respiratory: no wheezing Bibasilar rales with diminished breath sounds in bases. Cardiovascular: no significant murmur, irregular Gastrointestinal: soft, non-tender, no distention, positive bowel sounds 1+ edema of LE's. Psychiatric: normal affect Dx/Plan (1) Acute respiratory failure with hypoxemia Code(s): J96.01 - ACUTE RESPIRATORY FAILURE WITH HYPOXIA Status: Acute (2) Pneumonia Code(s): J18.9 - PNEUMONIA, UNSPECIFIED ORGANISM Status: Acute Qualifiers: Laterality: bilateral Lung location: lower lobe of lung Comment: Health Care Acquired. Vanc and Zosyn. (3) Congestive heart failure Code(s): I50.9 - HEART FAILURE, UNSPECIFIED Status: Acute Comment: Likley related to A-fib. (4) NSTEMI (non-ST elevated myocardial infarction) Code(s): I21.4 - NON-ST ELEVATION (NSTEMI) MYOCARDIAL INFARCTION Status: Acute Comment: Type II. Demand ischemia. Trops are stable and not rising. Cards consulted. (5) Atrial fibrillation Code(s): I48.91 - UNSPECIFIED ATRIAL FIBRILLATION Status: Chronic Comment: Chronic at this point. Rate controlled on Amio and Dig. On Eliquis. (6) Atrial dilatation, left Code(s): I51.7 - CARDIOMEGALY Status: Acute (7) Generalized weakness Code(s): R53.1 - WEAKNESS Status: Acute Comment: Profoundly weak. Cannot sit up in bed on his own. Etiology is unclear. May be related to EtOH myopathy. (8) HLD (hyperlipidemia) Code(s): E78.5 - HYPERLIPIDEMIA, UNSPECIFIED Status: Acute (9) Urinary retention Code(s): R33.9 - RETENTION OF URINE, UNSPECIFIED Status: Acute Comment: Has had indwelling Urbina since discharge. (10) Bipolar disorder Code(s): F31.9 - BIPOLAR DISORDER, UNSPECIFIED Status: Chronic Comment: Continuing with Haldol q HS. (11) DM2 (diabetes mellitus, type 2) Status: Chronic Qualifiers: Comment: Blood sugars well controlled. Continue diabetic reasonable diet, accuchecks, SSI. (12) HTN (hypertension) Code(s): I10 - ESSENTIAL (PRIMARY) HYPERTENSION Status: Chronic Qualifiers: (13) Tobacco abuse Code(s): Z72.0 - TOBACCO USE Status: Chronic (14) PAD (peripheral artery disease) Code(s): I73.9 - PERIPHERAL VASCULAR DISEASE, UNSPECIFIED Status: Suspected - Plan * Initially required BIPAP. No stable on NC oxygen. Still mildly tachypneic. * Continue oxygen support. * Continue IV abx. * Continue diuresis as he tolerates. * Pulmonology, Cardiology consults. * Physical Therapy. * Continue to monitor the hematuria. Susupect it is mild Urbina trauma related to [place]. On Eliquis. If does not resolve, will consult Urology.
[2018-04-02] MEDS: HumaLOG 300 UNITS/3 ML VIAL SC PRN ×2 (14:00→16:55)
[2018-04-02 16:47] LABS: Hemoglobin 10.5 g/dL (14.0-18.0)
[2018-04-02 16:53] LABS: PTT 40.6 SEC (22.9-36.1); Prothrombin Time 22.6 SEC (12.0-14.7)
--- NOTE | 2018-04-02 18:47 | CON ---
DATE OF CONSULTATION: 04/02/2018 TYPE OF CONSULTATION: Cardiology. INDICATION FOR CONSULTATION: 72-year-old patient with atrial fibrillation, pneumonia, and respiratory insufficiency. HISTORY OF PRESENT ILLNESS: This very unfortunate 72-year-old gentleman was recently in the hospital and had been found to have atrial fibrillation and eventually underwent cardioversion of the atrial fibrillation. He was felt to be in sinus rhythm and was discharged to the rehab facility due to significant deconditioning. Apparently since being there, he has developed increasing lower extremity edema, increasing shortness of breath, and was readmitted after being to the hospital yesterday afternoon or evening after he again was found to have significant lower extremity edema. He was given some, I believe, IV diuretics while in the rehab facility, but unfortunately did not help his shortness of breath. Then, by chest x-ray, he has been found to have also what appears to be bilateral pneumonia. His heart rate was somewhat elevated on the previous admission, but at this time, the heart rate was under good control, but appears to be in atrial fibrillation with well-controlled ventricular response. He did have some [id number] changes. His cardiac enzymes were indeterminate and did not appear to be indicative of a myocardial infarction; most likely, it is just due to demand ischemia associated with his pneumonia and respiratory insufficiency. His troponin I was 0.44 and went down actually to 0.42 and then back up to 0.47. MBs were negative. His BNP was 572 compatible with some degree of congestive heart failure, but overall, worse problem appears to be his congestive heart failure at this time; his atrial fibrillation has a well controlled ventricular response. He denies any chest pain. He did have shortness of breath however, and said he began feeling weaker while he was in the rehab center and developed more lower extremity edema. PAST MEDICAL HISTORY: Significant for; 1. Atrial fibrillation, just recently in the hospital and discharged. 2. Diabetes. 3. Hypertension. 4. History of some bipolar disorder. 5. Hyperlipidemia. MEDICATIONS: Included; 1. Atorvastatin. 2. Benztropine. 3. Lovenox. 4. Famotidine. 5. Haloperidol. 6. Humalog insulin. 7. Lisinopril. 8. Pioglitazone. 9. Metformin. 10. Tamsulosin. 11. Tylenol. 12. Bisacodyl. 13. Clonidine as needed, actually he has a 1 week patch, 0.1 mg. 14. Other p.r.n. medications. REVIEW OF SYSTEMS: His review of systems is very difficult to obtain, but all I can get from the patient is, he became more short of breath. He feels tired and fatigued, and weak and he has some lower extremity edema, and has been having a cough. ALLERGIES: NONE. SOCIAL HISTORY: There is no history of alcohol or tobacco abuse. FAMILY HISTORY: Noncontributory. PHYSICAL EXAMINATION: GENERAL: Reveals an elderly gentleman, who is in no acute distress. He did get somewhat short of breath during the evaluation. VITAL SIGNS: Blood pressure 134/67, heart rate is in the 70s to 80s, it shows atrial fibrillation, respiratory rate 16, he is afebrile, and O2 saturation 96%. HEENT: Shows the head to be normocephalic and atraumatic. Carotid pulses are present. I did not hear any bruits. CHEST: His chest has bilateral rhonchi noted. He has decreased inspiratory effort and breath sounds are decreased throughout. CARDIOVASCULAR: Reveals an irregularly regular rhythm. I could not hear any significant S3 or S4. ABDOMEN: Soft. He has positive bowel sounds. I cannot elicit any tenderness. EXTREMITIES: Showed 2+ lower extremity edema. NEUROLOGIC: He appears to be relatively intact. He has good strength and tone. SKIN: Warm and dry at this time. LABORATORY DATA: Shows a WBC of 4.5, a hemoglobin of 10.2, and hematocrit 30.7. Potassium of 3.6, BUN of 0.86, and blood sugar of 179. Troponin I as noted above. His BNP was 572. His EKG shows atrial fibrillation with a well-controlled ventricular response with what appears to be nonspecific ST-segment changes and decreased R-wave progression in the anterior leads, which could be indicative of old anterior myocardial infarction; however, previous echocardiogram showed relatively normal ejection fraction. IMPRESSION: 1. Bilateral pneumonia in this elderly gentleman. He is on antibiotics, would continue this, would agree with that and oxygen as needed. This may have again exacerbated or be the etiology of his repeat episode of atrial fibrillation. 2. Atrial fibrillation. The heart rate is under good control at this time. He is still on amiodarone. We will continue this medication. He is also on Eliquis for the atrial fibrillation and appears to be tolerating this quite well, we will continue this. His diltiazem has been changed to 30 mg 4 times a day and I would be in agreement with this. 3. Hypertension. He is under good control at this time with this medications. 4. History of diabetes. This is also under relatively good control and he is on a sliding scale, I believe, in addition to his medications. At this time, we will continue to monitor the patient in the intensive care unit or in telemetry area or in the hospital. We will be more than happy to continue to follow the patient with you. Further care of the patient will be by Dr. Ramirez when he visits with the patient tomorrow. At this time, he appears to be relatively stable except for his pneumonia, which will hopefully be treated by the antibiotics in a reasonable fashion. Job ID: [id number]
[2018-04-02] MEDS: Tamsulosin HCl 0.4 MG CAP PO SCH (20:12)
[2018-04-02] MEDS: Benztropine 1 MG TAB PO SCH (20:12)
[2018-04-02] MEDS: Haloperidol 5 MG TAB PO SCH (20:12)
[2018-04-03] MEDS: Piperacillin/Tazobactam 3.375 GM in Sodium Chloride 0.9% 100 ML IVPB SCH ×4 (00:27→17:18)
[2018-04-03 05:42] LABS: #Eosinphils 0.1 thou/uL (0.0-0.7); #Lymphocytes 0.5 thou/uL (1.20-3.40); #Monocytes 0.3 thou/uL (0.11-0.59); #Neutrophils 3.4 thou/uL (1.40-6.50); %Basophils 0.3 % (0.0-1.0); %Eosinophils 1.4 % (0.0-10.0); %Monocytes 6.7 % (0.0-10.0); %Neutrophils 79.7 % (42.0-75.0); Mean Corpuscular HGB CONC 32.7 g/dL (32.0-36.0); Mean Corpuscular Hemoglobin 31.1 pg (27.0-31.0); Mean Corpuscular Volume 94.9 fL (78.0-98.0); Mean Platelet Volume 6.6 fL (7.4-10.4); Platelet Count 156 thou/uL (130-400); RBC Distribution Width 12.4 % (11.5-14.5); Red Blood Cell (RBC) Count 3.23 mill/uL (4.70-6.10); White Blood Cell (WBC) Count 4.3 thou/uL (4.8-10.8)
[2018-04-03 06:07] LABS: Anion Gap 11 mmol/L (10-20); BUN (Urea Nitrogen) 21 mg/dL (8.4-25.7); Calc. Creatinine Clearance 111 mL/min (70-130); Calcium 8.4 mg/dL (7.8-10.44); Carbon Dioxide 32 mmol/L (23-31); Chloride 101 mmol/L (98-107); Estimated GFR-MDRD Greater than 90; Glucose 150 mg/dL (83-110); Potassium 3.2 mmol/L (3.5-5.1); Sodium 141 mmol/L (136-145)
[2018-04-03] MEDS: Lisinopril 10 MG TAB PO SCH (08:37)
[2018-04-03] MEDS: Amiodarone 200 MG TAB PO SCH ×2 (08:38→21:02)
[2018-04-03] MEDS: Tamsulosin HCl 0.4 MG CAP PO SCH ×2 (08:38→21:02)
[2018-04-03] MEDS ORDERED: Apixaban 5 MG TAB PO SCH (09:00)
--- NOTE | 2018-04-03 12:22 | PDOC.CTH ---
Cardiology Progress Note - Subjective He is doing well. He denies any7 chest pain, tightness, pressure, SOB. - Objective Vital Signs Temp Pulse Resp BP Pulse Ox 04/03/18 10:55 95 04/03/18 07:31 97.6 F 68 20 148/74 H 97 Weight 191 lb 6.4 oz 04/02/18 04/03/18 04/04/18 06:59 06:59 06:59 Intake Total 420 1240 Output Total 1900 1175 Balance -1480 65 - Physical Examination General/Neuro: alert & oriented x3, NAD Neck: no JVD present Lungs: unlabored respirations Heart: other: (Irregular) Abdomen: NT/ND Extremities: other: (no edema.) - Labs Result Diagrams: 04/03/18 04:28 04/03/18 04:28 Troponin/CKMB CK-MB (CK-2) 2.5 ng/mL (0-6.6) 04/01/18 15:35 Troponin I 0.477 ng/mL (< 0.028) H* 04/01/18 21:25 - Assessment/Plan 1. Afib 2. Pneumonia PLAN: - Continue rate control for afib. - Eliquis for stroke prophylaxis. - Continue amiodarone, switch back to 200 mg daily now. - Replace Gregg
--- NOTE | 2018-04-03 14:13 | PQF ---
CLINICAL DOCUMENTATION IMPROVEMENT CLARIFICATION FORM: ICD-10 Updated PLEASE DO AN ADDENDUM TO THE PROGRESS NOTE WITH ANY DOCUMENTATION UPDATES OR ADDITIONS AND CARRY THROUGH TO DC SUMMARY. THANK YOU. DATE: 04/03/18 ATTN: Dr. Bray Please exercise your independent, professional judgment in responding to the clarification form. Clinical indicators are provided on the bottom of this form for your review Please check appropriate box(s): [ ] Empirically treating Gram Negative Pneumonia [ ] Empirically treating Anaerobic Pneumonia [ ] Pneumonia secondary to [ x ] Aspiration Pneumonia [ ] Pneumonia of unknown etiology [ ] Other diagnosis [ ] Unable to determine In addition, please specify: Present on Admission (POA): [ x ] Yes [ ] No [ ] Unable to determine For continuity of documentation, please document condition throughout progress notes and discharge summary. Thank You. CLINICAL INDICATORS - SIGNS / SYMPTOMS / LABS H&P 04/01: Chest X-ray shows significant bibasilar infiltrates. PN 04/02: Pneumonia. Bilateral lower lobe of lung. Health care acquired. RISKS: H&P 04/01: 72 yo. Recently discharged from the hospital just a few days ago. Presently living in a nursing facility. Acute hypoxic respiratory failure. Atrial fibrillation. DM TREATMENT: Order 04/01: IV ZOSYN 3.375 gm IV Q6 hrs. Order 04/01: IV Vancomycin HCL 2 gm Thank you, Sarah (This form is maintained as a part of the permanent medical record) 2014 [employer]. All Rights Reserved Sarah Eubanks RN, BSN [email or web address] Office: [phone] [facility]
[2018-04-03 15:39] LABS: Vancomycin, Trough 10.1 ug/mL
[2018-04-03] MEDS: Vancomycin HCl 1.25 GM in Sodium Chloride 0.9% 250 ML 250 ML IVPB SCH (17:19)
--- NOTE | 2018-04-03 20:11 | PDOC.PN ---
- Subjective Encounter Start Date: 04/03/18 Encounter Start Time: 12:00 Reports he feels fine. Feels like he is breathing comfortably. Denies any problems with eating. Denies cough or choking with meals. Says he does better when sitting up. - Objective Resuscitation Status - Order Detail: 04/01/18 18:23 Resuscitation Status Routine Resuscitation Status: FULL: Full Resuscitation Discussed with: Patient Vital Signs & Weight: Vital Signs (12 hours) Pulse Pulse Ox 04/03/18 16:41 75 95 04/03/18 10:55 95 Weight Weight 191 lb 6.4 oz I&O: 04/02/18 04/03/18 04/04/18 06:59 06:59 06:59 Intake Total 420 1240 Output Total 1900 1175 600 Balance -1480 65 -600 Result Diagrams: 04/03/18 04:28 04/03/18 04:28 Additional Labs: Accuchecks 04/03/18 04/03/18 04/03/18 16:44 10:58 05:17 POC Glucose 212 H 292 H 172 H 04/02/18 20:05 POC Glucose 221 H Phys Exam - Physical Examination Constitutional: NAD Neck: no nodes Mild basilar rales with extremely weak and ineffective cough. Cardiovascular: no significant murmur, irregular Gastrointestinal: soft, non-tender, no distention, positive bowel sounds Musculoskeletal: no edema Pronounced, generalized weakness. Deviation from normal: Flat affect. Dx/Plan (1) Acute respiratory failure with hypoxemia Code(s): J96.01 - ACUTE RESPIRATORY FAILURE WITH HYPOXIA Status: Acute Comment: Secondary to pneumonia. Improving. Continue oxygen support. (2) Pneumonia Code(s): J18.9 - PNEUMONIA, UNSPECIFIED ORGANISM Status: Acute Qualifiers: Pneumonia type: aspiration pneumonia Laterality: bilateral Lung location : lower lobe of lung Comment: Health Care Acquired. Now suspicious for aspiration pnemonia. Vanc and Zosyn. (3) Congestive heart failure Code(s): I50.9 - HEART FAILURE, UNSPECIFIED Status: Acute Comment: Likley related to A-fib. (4) NSTEMI (non-ST elevated myocardial infarction) Code(s): I21.4 - NON-ST ELEVATION (NSTEMI) MYOCARDIAL INFARCTION Status: Acute Comment: Type II. Demand ischemia. Trops are stable and not rising. Cards consulted. (5) Atrial fibrillation Code(s): I48.91 - UNSPECIFIED ATRIAL FIBRILLATION Status: Chronic Comment: Chronic at this point. Rate controlled on Amio and Dig. On Eliquis. (6) Atrial dilatation, left Code(s): I51.7 - CARDIOMEGALY Status: Acute (7) Generalized weakness Code(s): R53.1 - WEAKNESS Status: Acute Comment: Hx of cervical stenosis with significant myelopathy. Had cervical discectomy and laminectomy. Has persistent lumbar stenosis. Very weak cough. (8) HLD (hyperlipidemia) Code(s): E78.5 - HYPERLIPIDEMIA, UNSPECIFIED Status: Acute (9) Urinary retention Code(s): R33.9 - RETENTION OF URINE, UNSPECIFIED Status: Acute Comment: Has had indwelling Urbina since discharge. Likely related to the lumbar spinal stenosis. (10) Bipolar disorder Code(s): F31.9 - BIPOLAR DISORDER, UNSPECIFIED Status: Chronic Comment: Continuing with Haldol q HS. (11) DM2 (diabetes mellitus, type 2) Status: Chronic Qualifiers: Comment: Blood sugars well controlled. Continue diabetic reasonable diet, accuchecks, SSI. (12) HTN (hypertension) Code(s): I10 - ESSENTIAL (PRIMARY) HYPERTENSION Status: Chronic Qualifiers: (13) Tobacco abuse Code(s): Z72.0 - TOBACCO USE Status: Chronic (14) PAD (peripheral artery disease) Code(s): I73.9 - PERIPHERAL VASCULAR DISEASE, UNSPECIFIED Status: Suspected (15) Hematuria Code(s): R31.9 - HEMATURIA, UNSPECIFIED Status: Acute Comment: Secondary to anticoagulation. Holding Eliquis. Has indwelling Urbina. (16) Hematochezia Code(s): K92.1 - MELENA Status: Acute Comment: Minimal. Secondary to the anticoagulation. Holding Eliquis for now. (17) Dysphagia Code(s): R13.10 - DYSPHAGIA, UNSPECIFIED Status: Acute Comment: Discussed with SPA MANAGER. Making NPO for now. Reassess tomorrow. Concerned that he may have aspiration and related pneumonia. Nurses have observed him having some difficulty with meals. - Plan * Profound musculoskeletal weakness secondary to hx of cervical spinal stenosis and myelopathy. Had cervical discectomy and laminectomy, but appears that the myelopathy was permanent. * At risk for pneumonia due to the musculoskeletal weakness and very weak cough. Difficult time clearing his airway. * Add mucolytics. * Repeat CXR in am. If not significantly improved, consult Pulm. * Reassess swallow tomorrow. * Holding Eliquis to see if the hematuria and minimal hematochezia will resolve. If not resolving by tomorrow, will need to consider further evaluation.
[2018-04-03] MEDS ORDERED: Potassium Chloride 40 MEQ in Sodium Chloride 0.9% 250 ML 250 ML IVPB SCH (20:30)
[2018-04-03] MEDS: Benztropine 1 MG TAB PO SCH (21:02)
[2018-04-03] MEDS: Haloperidol 5 MG TAB PO SCH (21:02)
[2018-04-03] MEDS: guaiFENesin 200 MG TAB PO SCH (21:02)
[2018-04-04] MEDS: Piperacillin/Tazobactam 3.375 GM in Sodium Chloride 0.9% 100 ML IVPB SCH ×4 (00:15→17:35)
[2018-04-04] MEDS: Vancomycin HCl 1.25 GM in Sodium Chloride 0.9% 250 ML 250 ML IVPB SCH ×2 (03:37→17:35)
[2018-04-04 05:39] LABS: #Eosinphils 0.1 thou/uL (0.0-0.7); #Lymphocytes 0.5 thou/uL (1.20-3.40); #Monocytes 0.3 thou/uL (0.11-0.59); #Neutrophils 3.6 thou/uL (1.40-6.50); %Basophils 0.6 % (0.0-1.0); %Eosinophils 1.2 % (0.0-10.0); %Lymphocytes 10.9 % (21.0-51.0); %Monocytes 6.3 % (0.0-10.0); Hemoglobin 10.2 g/dL (14.0-18.0); Mean Corpuscular HGB CONC 32.3 g/dL (32.0-36.0); Mean Corpuscular Hemoglobin 30.6 pg (27.0-31.0); Mean Corpuscular Volume 94.7 fL (78.0-98.0); Mean Platelet Volume 6.6 fL (7.4-10.4); Platelet Count 155 thou/uL (130-400); RBC Distribution Width 12.4 % (11.5-14.5); Red Blood Cell (RBC) Count 3.32 mill/uL (4.70-6.10); White Blood Cell (WBC) Count 4.4 thou/uL (4.8-10.8)
[2018-04-04 05:56] LABS: Anion Gap 11 mmol/L (10-20); BUN (Urea Nitrogen) 18 mg/dL (8.4-25.7); Calc. Creatinine Clearance 117 mL/min (70-130); Calcium 8.3 mg/dL (7.8-10.44); Carbon Dioxide 32 mmol/L (23-31); Chloride 103 mmol/L (98-107); Estimated GFR-MDRD Greater than 90; Glucose 173 mg/dL (83-110); Potassium 3.6 mmol/L (3.5-5.1); Sodium 142 mmol/L (136-145)
[2018-04-04] MEDS: Lisinopril 10 MG TAB PO SCH (08:27)
[2018-04-04] MEDS: Amiodarone 200 MG TAB PO SCH ×3 (08:28→21:12)
[2018-04-04] MEDS: guaiFENesin 200 MG TAB PO SCH ×4 (08:29→21:12)
[2018-04-04] MEDS: Tamsulosin HCl 0.4 MG CAP PO SCH ×3 (08:29→21:12)
--- NOTE | 2018-04-04 08:55 | RAD ---
SINGLE VIEW CHEST: Date: 04/04/18 COMPARISON: 04/02/18. HISTORY: Pneumonia. FINDINGS: Single view of the chest shows a cardiomediastinal silhouette which is upper limits of normal in size . Multifocal infiltrates are stable. Small bilateral pleural effusions are stable. IMPRESSION: Stable multifocal infiltrates and pleural effusions. POS: [facility]
[2018-04-04 12:29] LABS: Base Excess (BEa) 5.4 mEq/L (-2.0 to +3.0); CO2 Tension 43.7 mmHg (35.0-45.0); Carboxyhemoglobin (COHb) 0.6 gm% (0.0-3.0); Hemoglobin (Hb) 10.8 g/dL (14.0-18.0); Potassium - ABG Lab 3.43 mmol/L (3.70-5.30); pH, Arterial 7.45 (7.35-7.45)
[2018-04-04 12:32] LABS: Puncture Site RR
[2018-04-04 12:33] LABS: ALV-art Gradient 89.535 (0-20)
--- NOTE | 2018-04-04 12:56 | PDOC.CTH ---
Cardiology Progress Note - Subjective No new issues. Difficulty with swallowing. - Objective Vital Signs Temp Pulse Resp BP Pulse Ox 04/04/18 11:00 97.5 F L 73 16 172/82 H 93 L 04/04/18 08:00 97 04/04/18 07:38 97.8 F 71 16 148/86 H 94 L 04/04/18 02:21 95 Weight 190 lb 3 oz 04/03/18 04/04/18 04/05/18 06:59 06:59 06:59 Intake Total 1240 700 Output Total 1175 1100 Balance 65 -400 - Physical Examination General/Neuro: alert & oriented x3, NAD Neck: no JVD present Lungs: unlabored respirations, other: (Coarse breath sounds. ) Heart: RRR Abdomen: NT/ND Extremities: other: (no edema) - Telemetry Telemetry Rhythm: NSR - Labs Result Diagrams: 04/04/18 04:34 04/04/18 04:34 Troponin/CKMB CK-MB (CK-2) 2.5 ng/mL (0-6.6) 04/01/18 15:35 Troponin I 0.477 ng/mL (< 0.028) H* 04/01/18 21:25 - Assessment/Plan 1. Afib 2. Pneumonia PLAN: - Continue rate control for afib. - Eliquis for stroke prophylaxis. - Continue amiodarone, maintenance dose. - Abx per pirmary team.
--- NOTE | 2018-04-04 20:51 | PDOC.PN ---
- Subjective Encounter Start Date: 04/04/18 Encounter Start Time: 13:30 Feels like his breathing is worse. Says he just wants to go home. - Objective Resuscitation Status - Order Detail: 04/04/18 15:41 Resuscitation Status Routine Resuscitation Status: DNAR: NO Resuscitation Discussed with: Pt and Randa (MPOA) both agreeable Vital Signs & Weight: Vital Signs (12 hours) Temp Pulse Resp BP BP Pulse Ox 04/04/18 20:00 97.7 F 82 20 155/86 H 93 L 04/04/18 16:00 97.8 F 87 18 173/86 H 95 04/04/18 11:00 97.5 F L 73 16 172/82 H 93 L Weight Weight 190 lb 3 oz I&O: 04/03/18 04/04/18 04/05/18 06:59 06:59 06:59 Intake Total 1240 700 750 Output Total 1175 1100 Balance 65 -400 750 Result Diagrams: 04/04/18 04:34 04/04/18 04:34 Additional Labs: Accuchecks 04/04/18 04/04/18 04/04/18 16:30 11:59 04:12 POC Glucose 194 H 173 H 175 H 04/03/18 20:46 POC Glucose 199 H Phys Exam - Physical Examination Constitutional: NAD Slightly dusky in the perioral area. Bibasilare rhonchi and diminished BS. Cardiovascular: no significant murmur, irregular Gastrointestinal: soft, non-tender, no distention Musculoskeletal: no edema Profound, diffuse weakness. Dx/Plan (1) Acute respiratory failure with hypoxemia Code(s): J96.01 - ACUTE RESPIRATORY FAILURE WITH HYPOXIA Status: Acute Comment: Secondary to pneumonia and severe weakness of the trunk and resp muscles. CXR not improved. More SOB and oxygen demands increasing. Continue oxygen support. (2) Pneumonia Code(s): J18.9 - PNEUMONIA, UNSPECIFIED ORGANISM Status: Acute Qualifiers: Pneumonia type: aspiration pneumonia Laterality: bilateral Lung location : lower lobe of lung Comment: Health Care Acquired. Now suspicious for aspiration pnemonia. Vanc and Zosyn. (3) Congestive heart failure Code(s): I50.9 - HEART FAILURE, UNSPECIFIED Status: Acute Comment: Likley related to A-fib. (4) NSTEMI (non-ST elevated myocardial infarction) Code(s): I21.4 - NON-ST ELEVATION (NSTEMI) MYOCARDIAL INFARCTION Status: Acute Comment: Type II. Demand ischemia. Trops are stable and not rising. Cards consulted. (5) Atrial fibrillation Code(s): I48.91 - UNSPECIFIED ATRIAL FIBRILLATION Status: Chronic Comment: Chronic at this point. Rate controlled on Amio and Dig. On Eliquis. (6) Atrial dilatation, left Code(s): I51.7 - CARDIOMEGALY Status: Acute (7) Generalized weakness Code(s): R53.1 - WEAKNESS Status: Acute Comment: Hx of cervical stenosis with significant myelopathy. Had cervical discectomy and laminectomy. Has persistent lumbar stenosis. Very weak cough. (8) HLD (hyperlipidemia) Code(s): E78.5 - HYPERLIPIDEMIA, UNSPECIFIED Status: Acute (9) Urinary retention Code(s): R33.9 - RETENTION OF URINE, UNSPECIFIED Status: Acute Comment: Has had indwelling Urbina since discharge. Likely related to the lumbar spinal stenosis. (10) Bipolar disorder Code(s): F31.9 - BIPOLAR DISORDER, UNSPECIFIED Status: Chronic Comment: Continuing with Haldol q HS. (11) DM2 (diabetes mellitus, type 2) Status: Chronic Qualifiers: Comment: Blood sugars well controlled. Continue diabetic reasonable diet, accuchecks, SSI. (12) HTN (hypertension) Code(s): I10 - ESSENTIAL (PRIMARY) HYPERTENSION Status: Chronic Qualifiers: (13) Tobacco abuse Code(s): Z72.0 - TOBACCO USE Status: Chronic (14) PAD (peripheral artery disease) Code(s): I73.9 - PERIPHERAL VASCULAR DISEASE, UNSPECIFIED Status: Suspected (15) Hematuria Code(s): R31.9 - HEMATURIA, UNSPECIFIED Status: Resolved Comment: Secondary to anticoagulation. Holding Eliquis. Has indwelling Urbina. (16) Hematochezia Code(s): K92.1 - MELENA Status: Resolved Comment: Minimal. Secondary to the anticoagulation. Holding Eliquis for now. (17) Dysphagia Code(s): R13.10 - DYSPHAGIA, UNSPECIFIED Status: Acute Comment: Discussed with CONSTRUCTION PIT WORKER. No safe consistencies. - Plan * Consult Palliative Care team. * He is on the verge of needing to move to the IMCU or make a decision to be DNAR. He currently thinks he wants to be more aggressive, but wants to go home. * Will discuss with his sister who is his POA as well.
[2018-04-04] MEDS: Benztropine 1 MG TAB PO SCH (21:11)
--- NOTE | 2018-04-04 21:11 | PDOC.EVN ---
Event Note - Event Note Event Note: Had a long discussion with the patient regarding the fact that his cervical myelopathy is not going to resolve. His weakness is leading to his aspiration and his respiratory difficulties. He is having major difficulty with the pneumonia because of the lack of cough. He is getting worse and we discussed the fact that he would be looking at making a decision regarding palliative care vs. intubation. Intubation would almost certainly result in trach and PEG. He wants to go home, but that situation would result in him going to [facility] long-term. He was initially considering pursuing that. I talked with his sister who is his POA and she does not want any intubation or PEG. She doesn't think he does either, but has some difficulty understanding things at time. I will consult PCT. Total time in advanced care planning 22 minutes.
[2018-04-04] MEDS: Haloperidol 5 MG TAB PO SCH (21:12)
[2018-04-05] MEDS: Piperacillin/Tazobactam 3.375 GM in Sodium Chloride 0.9% 100 ML IVPB SCH ×3 (00:48→11:44)
--- NOTE | 2018-04-05 02:00 | CON ---
DATE OF CONSULTATION: 04/04/2018 HISTORY OF PRESENT ILLNESS: Mr. Modi is a 72-year-old male who was recently in the hospital. I met him in the ICU after he became hypotensive several times with administration of a combination of his blood pressure medicines and his atrial fibrillation medicine. He was found to have a depressed ejection fraction as well as rapid atrial fibrillation. He was successfully eventually transferred out of the ICU and then cardioverted, but he did not remain in sinus rhythm. He apparently was discharged out with a goal of rate control and then apparently came back with complaints of cough, shortness of breath and peripheral edema. He has had no fever. I was concerned because of a persistently abnormal radiograph. PAST MEDICAL HISTORY: 1. Remarkable for bipolar disorder. He has very attentive sisters I believe who help take care of him. 2. Diabetes. 3. Lipid disorder. 4. Hypertension. 5. BPH. 6. History of peripheral vascular disease. 7. History of urinary retention. 8. History of orthopedic foot surgery in the past. PAST FAMILY HISTORY: Negative for lung disease in early age. SOCIAL HISTORY: Not obtained. REVIEW OF SYSTEMS: 10 point review of systems completed, otherwise negative, but even when he was having hypotensive events and was on pressors when he was in the ICU last time, he never complained of anything. PHYSICAL EXAMINATION: VITAL SIGNS: He is afebrile. Heart rates in the 70s. Respiratory rate 16, blood pressure is 148/86, and oximetry is 94 to 95. GENERAL: He appears comfortable. He is flat in bed. HEENT: Pupils are equal. Sclerae are anicteric. NECK: Supple. He has no lymphadenopathy. LUNGS: Remarkable for crackles at his bases. HEART: Regular rhythm. ABDOMEN: Soft and nontender. EXTREMITIES: Without clubbing, cyanosis or edema. IMAGING: Chest radiograph shows bilateral patchy alveolar infiltrates. DISCUSSION: I agree with Dr. Bray that this is an unusual presentation for pneumonia. Statistically, it is more likely that this is related to atrial fibrillation and left ventricular systolic dysfunction. His radiograph may not have cleared quickly with diuresis. He is down a couple of liters, so I would expect some improvement in his x-ray, but indeed, he could also have a component of alveolar hemorrhage mixed with his pulmonary edema delaying clearance of this x- ray. I will be happy to follow the other physicians caring for him. I doubt he has a staphylococcal pneumonia, so I will stop vancomycin. We might take him off the Zosyn tomorrow. TIME SPENT: This was a 50-minute consult, with greater than 50% of the time spent in coordinating care. Job ID: [id number] MTDD
[2018-04-05 03:52] LABS: #Eosinphils 0.1 thou/uL (0.0-0.7); #Lymphocytes 0.5 thou/uL (1.20-3.40); #Monocytes 0.3 thou/uL (0.11-0.59); #Neutrophils 3.7 thou/uL (1.40-6.50); %Basophils 0.3 % (0.0-1.0); %Eosinophils 1.4 % (0.0-10.0); %Lymphocytes 11.6 % (21.0-51.0); %Monocytes 5.7 % (0.0-10.0); Hemoglobin 10.6 g/dL (14.0-18.0); Mean Corpuscular HGB CONC 33.4 g/dL (32.0-36.0); Mean Corpuscular Hemoglobin 31.4 pg (27.0-31.0); Mean Corpuscular Volume 94.1 fL (78.0-98.0); Mean Platelet Volume 6.6 fL (7.4-10.4); Platelet Count 159 thou/uL (130-400); RBC Distribution Width 12.6 % (11.5-14.5); Red Blood Cell (RBC) Count 3.37 mill/uL (4.70-6.10); White Blood Cell (WBC) Count 4.6 thou/uL (4.8-10.8)
[2018-04-05 04:05] LABS: Vancomycin, Trough 15.9 ug/mL
[2018-04-05 04:07] LABS: Anion Gap 12 mmol/L (10-20); BUN (Urea Nitrogen) 18 mg/dL (8.4-25.7); Calc. Creatinine Clearance 110 mL/min (70-130); Calcium 8.6 mg/dL (7.8-10.44); Carbon Dioxide 32 mmol/L (23-31); Chloride 102 mmol/L (98-107); Estimated GFR-MDRD Greater than 90; Glucose 220 mg/dL (83-110); Potassium 3.6 mmol/L (3.5-5.1); Sodium 142 mmol/L (136-145)
[2018-04-05] MEDS: HumaLOG 300 UNITS/3 ML VIAL SC PRN ×2 (06:34→11:48)
[2018-04-05 08:46] VITALS: TEMP 98.1
[2018-04-05] MEDS: Amiodarone 200 MG TAB PO SCH (08:49)
[2018-04-05] MEDS: Lisinopril 10 MG TAB PO SCH (08:49)
[2018-04-05] MEDS: Tamsulosin HCl 0.4 MG CAP PO SCH (08:51)
[2018-04-05] MEDS: guaiFENesin 200 MG TAB PO SCH ×2 (08:51→13:59)
--- NOTE | 2018-04-05 12:06 | PDOC.PN ---
- Subjective Encounter Start Date: 04/05/18 Encounter Start Time: 10:00 Subjective: sob+, wheezing now - Objective Resuscitation Status - Order Detail: 04/04/18 15:41 Resuscitation Status Routine Resuscitation Status: DNAR: NO Resuscitation Discussed with: Pt and Randa (MPOA) both agreeable MAR Reviewed: Yes Vital Signs & Weight: Vital Signs (12 hours) Temp Pulse Resp BP BP Pulse Ox 04/05/18 10:50 90 18 04/05/18 08:49 176/91 H 04/05/18 08:43 98.1 F 80 20 176/91 H 94 L 04/05/18 08:00 94 L 04/05/18 07:25 90 20 04/05/18 04:00 97.6 F 73 20 165/88 H 93 L 04/05/18 00:52 97.6 F 70 20 134/77 93 L Weight Weight 192 lb 2 oz I&O: 04/04/18 04/05/18 04/06/18 06:59 06:59 06:59 Intake Total 700 1070 Output Total 1100 750 Balance -400 320 Result Diagrams: 04/05/18 03:27 04/05/18 03:27 Additional Labs: Accuchecks 04/05/18 04/04/18 04/04/18 05:29 20:36 16:30 POC Glucose 205 H 289 H 194 H 04/04/18 11:59 POC Glucose 173 H Phys Exam - Physical Examination HEENT: PERRLA, moist MMs Neck: no JVD, supple Respiratory: wheezing present Cardiovascular: no significant murmur, irregular Gastrointestinal: soft, non-tender, positive bowel sounds Musculoskeletal: pulses present Neurological: non-focal, moves all 4 limbs Dx/Plan (1) Congestive heart failure Code(s): I50.9 - HEART FAILURE, UNSPECIFIED Status: Acute Qualifiers: Heart failure type: diastolic Comment: Magn[place] related to A-fib. (2) Dysphagia Code(s): R13.10 - DYSPHAGIA, UNSPECIFIED Status: Acute Comment: Discussed with C[employer]ON WRAPPER. No safe consistencies. (3) Pneumonia Code(s): J18.9 - PNEUMONIA, UNSPECIFIED ORGANISM Status: Acute Qualifiers: Pneumonia type: aspiration pneumonia Laterality: bilateral Lung location : lower lobe of lung Comment: Health Care Acquired. Now suspicious for aspiration pnemonia. Vanc and Zosyn. (4) Atrial fibrillation Code(s): I48.91 - UNSPECIFIED ATRIAL FIBRILLATION Status: Chronic Qualifiers: Atrial fibrillation type: chronic Qualified Code(s): I48.2 - Chronic atrial fibrillation Comment: Chronic at this point. Rate controlled - Plan d/w sister over phone, explained in detail about poor prognosis an -: -d severe deconditioning with inability to cough, wants him to come to snf -: with hospice. Augmentin bid x 10 days -: may dc to snf -: dc kiran ramirez due to poor oral intake/dysphagia protocol plus hospice * .
[2018-04-05 14:04] VITALS: BP 140/72
--- NOTE | 2018-04-05 16:15 | DIS ---
DATE OF ADMISSION: 04/01/2018 DATE OF DISCHARGE: 04/05/2018 DISCHARGE DISPOSITION: shelter with hospice. PRIMARY DISCHARGE DIAGNOSES: 1. Aspiration pneumonia. 2. Congestive heart failure with diastolic dysfunction. 3. Chronic atrial fibrillation, which is rate controlled. PROCEDURES DONE DURING HOSPITALIZATION: The patient had a chest x-ray done on the day of admission, which showed findings suggestive bilateral parenchymal opacities with likely aspiration. H and H 10 and 31, platelet count 159. INR was 2.0 on the day of admission. Discharge BUN and creatinine are 18 and 0.7. BNP 572. Troponin I was indeterminate, peaking up to 0.47. Lactic acid was 4.6. INPATIENT CONSULTS: Dr. Gonzalez for Pulmonology; Dr. Ramirez for Cardiology. DISCHARGE MEDICATIONS: 1. Aspirin 81 mg p.o. daily. 2. Cogentin 1 mg p.o. at bedtime. 3. Haldol 5 mg p.o. at bedtime. 4. Pepcid 40 mg daily. 5. Metformin 500 mg p.o. three times daily. 6. Multivitamin one tab once daily. 7. MiraLAX 17 g p.r.n. 8. Torsemide 10 mg daily. 9. Amiodarone 200 mg p.o. twice daily for 7 days, then daily thereafter. 10. Augmentin 875 mg one capsule twice daily for 10 days for aspiration pneumonia. 11. Cardizem 30 mg p.o. four times daily. 12. DuoNeb q.4 hourly p.r.n. 13. Lisinopril 10 mg daily. 14. Flomax 0.4 mg twice daily. 15. Ultram p.r.n. for pain. ALLERGIES: NO KNOWN DRUG ALLERGIES. BRIEF COURSE DURING HOSPITALIZATION: The patient initially was sent over from [facility] for complaints of shortness of breath. He became profoundly weak and was unable to get up and walk. His initial x-ray was suggestive of pneumonia. The patient was evaluated by Speech therapist and was not approved for oral intake of any consistency due to risk of aspiration. Likely, the patient had aspiration pneumonia. He also had acute respiratory failure with hypoxia on admission and was on BiPAP, from which, he was slowly weaned out. The patient has severe deconditioning. He has multiple medical issues as well. He was recently hospitalized for prolonged period. In view of multiple medical issues, severe deconditioning, underlying bipolar disorder with likely cognitive dysfunction, family discussions were held with palliative care and Dr. Bray. The patient's sister, who is also power of patent prosecution attorney, has decided to place him under hospice. She wants him coming back to the same [facility] in [place] with hospice. [facility] accepted the patient. He will be shortly discharged back to [facility]. His overall prognosis is very poor. A total of 35 minutes was spent on discharge plan. Please see a [id number] documentation on [facility] [employer] for the day of discharge. Job ID: [id number]
--- NOTE | 2018-04-05 16:36 | PDOC.CTH ---
Cardiology Progress Note - Subjective No new complaints. - Objective Vital Signs Temp Pulse Resp BP BP Pulse Ox Pulse Ox 04/05/18 14:28 88 18 04/05/18 14:02 88 20 140/72 95 04/05/18 10:50 90 18 04/05/18 10:44 95 04/05/18 08:49 176/91 H 04/05/18 08:43 98.1 F 80 20 176/91 H 94 L 04/05/18 08:00 94 L 04/05/18 07:25 90 20 Pulse Ox Pulse Ox 04/05/18 14:28 04/05/18 14:02 04/05/18 10:50 04/05/18 10:44 88 L 92 L 04/05/18 08:49 04/05/18 08:43 04/05/18 08:00 04/05/18 07:25 Weight 192 lb 2 oz 04/04/18 04/05/18 04/06/18 06:59 06:59 06:59 Intake Total 700 1070 Output Total 1100 750 Balance -400 320 - Physical Examination General/Neuro: NAD Neck: no JVD present Lungs: other: (Coarse breath sounds. ) Heart: other: (Irregular) Abdomen: soft Extremities: + edema B (trace) - Labs Result Diagrams: 04/05/18 03:27 04/05/18 03:27 Troponin/CKMB CK-MB (CK-2) 2.5 ng/mL (0-6.6) 04/01/18 15:35 Troponin I 0.477 ng/mL (< 0.028) H* 04/01/18 21:25 - Assessment/Plan 1. Afib 2. Pneumonia 3. Aspiration. PLAN: - Continue rate control for afib. - He cannot safely swallow. - Family has decided to bring back to assisted with hospice. - Will sign out, please call with any questions.
--- NOTE | 2018-04-08 13:25 | EKG ---
Test Reason : Blood Pressure : / mmHG Vent. Rate : 087 BPM Atrial Rate : 119 BPM P-R Int : 000 ms QRS Dur : 104 ms QT Int : 370 ms P-R-T Axes : 000 -22 117 degrees QTc Int : 445 ms Atrial fibrillation /FLUTTER Anteroseptal infarct , age undetermined Abnormal ECG Confirmed by RIMA FOWLER DO ([id number]), fan mail editor PATRICK ALFONSO ([id number]) on 04/08/2018 1:25:42 PM Referred By: Confirmed By:RIMA FOWLER DO
== END 2018-04-05 16:05 | DRG 177 ==
LOC: ERS 14:53 → IMCU/EMU 16:25 → T4-A 04-02 15:01
PROVIDERS: ADMIT Internal Medicine; ATTEND Internal Medicine
PROC: 5A09457 Assistance with Respiratory Ventilation, 24-96 Consecutive Hours, Continuous Positive Airway Pressure (ICD-10-PCS; principal; 2018-04-01)
DX: J69.0 Pneumonitis due to inhalation of food and vomit (principal); J96.01 Acute respiratory failure with hypoxia; I50.31 Acute diastolic (congestive) heart failure; I21.A1 Myocardial infarction type 2; K92.1 Melena; I11.0 Hypertensive heart disease with heart failure; F31.9 Bipolar disorder, unspecified; E11.9 Type 2 diabetes mellitus without complications; N40.0 Benign prostatic hyperplasia without lower urinary tract symptoms; R33.9 Retention of urine, unspecified; Z79.899 Other long term (current) drug therapy; Z79.01 Long term (current) use of anticoagulants; Z79.82 Long term (current) use of aspirin; I49.3 Ventricular premature depolarization; I73.9 Peripheral vascular disease, unspecified; R13.10 Dysphagia, unspecified; R31.9 Hematuria, unspecified
CPT/HCPCS: 36415; 36416; 71045; 80048; 80053; 80162; 80202; 81003; 81015; 82274; 82550; 82553; 82805; 83605; 83880; 84484; 85025; 85610; 85730; 87040; 93005; 94640; 94660; 96365; 96367; G8978-GP-CM; G8979-GP-CK; G8996-GN-CL; G8997-GN-CI; J1940; J2543; J3370; J3480; J7050; J7620

== ENCOUNTER 2022-01-03 20:02 | Inpatient (IN) | payer MEDICARE, MEDICAID ==
[~2022-01-03 20:02] MED LIST: Iopamidol-370 76% 500 ML 1 ML ONE
[2022-01-03 20:37] LABS: #Lymphocytes 0.8 thou/uL (1.20-3.40); #Monocytes 0.8 thou/uL (0.11-0.59); #Neutrophils 14.3 thou/uL (1.40-6.50); %Basophils 0.3 % (0.0-1.0); %Eosinophils 0.2 % (0.0-10.0); %Lymphocytes 4.9 % (21.0-51.0); %Monocytes 5.2 % (0.0-10.0); %Neutrophils 89.4 % (42.0-75.0); Hemoglobin 16.7 g/dL (14.0-18.0); Mean Corpuscular HGB CONC 35.1 g/dL (32.0-36.0); Mean Corpuscular Hemoglobin 35.8 pg (27.0-31.0); Mean Platelet Volume 7.3 fL (7.4-10.4); Platelet Count 273 thou/uL (130-400); RBC Distribution Width 11.9 % (11.5-14.5); Red Blood Cell (RBC) Count 4.66 mill/uL (4.70-6.10)
[2022-01-03 20:52] LABS: INR-International Normal Ratio 1.3; PTT 29.1 sec (22.9-36.1); Prothrombin Time 16.2 sec (12.0-14.7)
[2022-01-03 21:02] LABS: ALT (SGPT) 20 U/L (8-55); AST (SGOT) 26 U/L (5-34); Alkaline Phosphatase 72 U/L (40-110); Anion Gap 17 mmol/L (10-20); BUN (Urea Nitrogen) 8 mg/dL (8.4-25.7); Bilirubin, Total 2.1 mg/dL (0.2-1.2); Calc. Creatinine Clearance 0 mL/min (70-130); Calcium 9.5 mg/dL (7.8-10.44); Carbon Dioxide 22 mmol/L (23-31); Chloride 100 mmol/L (98-107); Estimated GFR 92; Globulin 3.5 g/dL (2.4-3.5); Glucose 137 mg/dL (83-110); Magnesium 1.6 mg/dL (1.6-2.6); Potassium 4.1 mmol/L (3.5-5.1); Protein, Total 7.5 g/dL (5.8-8.1); Sodium 135 mmol/L (136-145)
[2022-01-03 21:04] LABS: Acetaminophen Less than 10.0 mcg/mL (10.0-30.0); Alcohol Less than 10 mg/dL (Less than 10); CK (CPK) 188 U/L (30-200); Salicylate Less than 8.0 mg/dL (15.0-30.0)
[2022-01-03 21:05] LABS: Bacteria/HPF None Seen HPF (None Seen); Bilirubin Negative (Negative); Blood, Urine 1+ (Negative); Clarity Clear (Clear); Glucose, Urine (Dipstick) Normal (Negative); Ketone, Urine 10 mg/dL (Negative); Leukocyte Negative Leu/uL (Negative); Nitrite Negative (Negative); Protein, Urine (Dipstick) 200 mg/dL (Neg-Trace); RBC/HPF 0-3 HPF (0-3); Specific Gravity, Urine 1.012 (1.002-1.036); Squamous Epithelial 0-3 HPF (0-3); WBC/HPF None Seen HPF (0-3)
[2022-01-03 21:10] LABS: Amphetamine Not Detected (NotDetected); Barbiturates Screen Not Detected (NotDetected); Benzodiazepine Screen Not Detected (NotDetected); Cocaine Metabolite Screen Not Detected (NotDetected); Methadone Not Detected (NotDetected); Methamphetamine Not Detected (NotDetected); Opiate Screen Not Detected (NotDetected); Oxycodone Screen Not Detected (NotDetected); Phencyclidine (PCP) Not Detected (NotDetected); THC/Cannabinoid Screen Not Detected (NotDetected); Tricyclic Screen Not Detected (NotDetected)
[2022-01-03 21:25] LABS: CKMB 5.1 ng/mL (0-6.6)
[2022-01-03 21:30] LABS: SARS-CoV-2 NAA Rapid Test Not Detected (NotDetected)
[2022-01-03] MEDS ORDERED: Morphine 4 MG/ML VIAL ONE (22:01)
[2022-01-03] MEDS ORDERED: Dextrose 5% in Water 1,000 ML IV PRN (23:35)
[2022-01-03] MEDS ORDERED: hydrALAZINE 20 MG/ML VIAL ONE (23:35)
[2022-01-03] MEDS ORDERED: Ondansetron PF 4 MG/2 ML Vial IVP PRN (23:35)
[2022-01-03] MEDS ORDERED: Dextrose 50% Abboject 50 ML SYRINGE SLOW IVP PRN (23:35)
[2022-01-03] MEDS ORDERED: Ondansetron ODT 4 MG TAB PO PRN (23:35)
[2022-01-03] MEDS ORDERED: Ibuprofen 800 MG TAB PO PRN (23:41)
[2022-01-03] MEDS ORDERED: Sodium Chloride 0.9% 1,000 ML IV SCH (23:45)
[2022-01-04] MEDS ORDERED: Magnesium 2 GM/50 ML(in water) 3 GM in Premix Bag 1 BAG IVPB SCH (00:15)
[2022-01-04] MEDS ORDERED: Labetalol HCl 100 MG/20 ML VIAL SLOW IVP PRN ×2 (00:30→08:48)
[2022-01-04] MEDS ORDERED: Labetalol HCl 100 MG/20 ML VIAL ONE (00:36)
[2022-01-04] MEDS ORDERED: Magnesium Sulfate 3 GM in Sodium Chloride 0.9% 100 ML IVPB SCH (02:00)
[2022-01-04 02:17] LABS: Troponin I 0.115 ng/mL (< 0.028)
[2022-01-04] MEDS: Acetaminophen 325 MG TAB PO SCH ×5 (02:33→23:55)
[2022-01-04] MEDS: Gabapentin 100 MG CAP PO SCH ×4 (02:33→23:55)
[2022-01-04 06:30] LABS: #Basophils 0.1 thou/uL (0.0-0.2); #Monocytes 0.5 thou/uL (0.11-0.59); #Neutrophils 9.6 thou/uL (1.40-6.50); %Basophils 0.4 % (0.0-1.0); %Eosinophils 0.1 % (0.0-10.0); %Monocytes 4.4 % (0.0-10.0); %Neutrophils 86.1 % (42.0-75.0); Hemoglobin 16.5 g/dL (14.0-18.0); Mean Corpuscular HGB CONC 32.6 g/dL (32.0-36.0); Mean Corpuscular Hemoglobin 33.2 pg (27.0-31.0); Mean Platelet Volume 7.4 fL (7.4-10.4); Platelet Count 265 thou/uL (130-400); RBC Distribution Width 12.1 % (11.5-14.5); Red Blood Cell (RBC) Count 4.98 mill/uL (4.70-6.10); White Blood Cell (WBC) Count 11.2 thou/uL (4.8-10.8)
[2022-01-04 06:47] LABS: Anion Gap 19 mmol/L (10-20); BUN (Urea Nitrogen) 9 mg/dL (8.4-25.7); Calc. Creatinine Clearance 0 mL/min (70-130); Calcium 9.6 mg/dL (7.8-10.44); Carbon Dioxide 20 mmol/L (23-31); Chloride 101 mmol/L (98-107); Estimated GFR 93; Glucose 126 mg/dL (83-110); Potassium 3.7 mmol/L (3.5-5.1); Sodium 136 mmol/L (136-145)
[2022-01-04] MEDS: hydrALAZINE 20 MG/ML VIAL SLOW IVP PRN ×2 (08:01→12:20)
[2022-01-04] MEDS: Senokot S 8.6-50 MG TAB PO SCH ×2 (08:03→21:09)
[2022-01-04] MEDS: Polyethylene Glycol 3350 17 GM Packet PO SCH (08:03)
[2022-01-04] MEDS: Lisinopril 20 MG TAB PO SCH (08:04)
[2022-01-04] MEDS: Tamsulosin HCl 0.4 MG CAP PO SCH (08:04)
[2022-01-04] MEDS: Acetaminophen/Codeine 30-300mg Tablet PO PRN ×2 (08:06→15:09)
[2022-01-04] MEDS: Famotidine 20 MG TAB PO SCH ×2 (08:08→21:10)
[2022-01-04] MEDS: Amlodipine 5 MG TAB PO SCH (11:03)
[2022-01-04] MEDS: Cyclobenzaprine 10 MG TAB PO PRN (21:10)
[2022-01-04] MEDS ORDERED: Lactated Ringer's 500 ML IV SCH (23:30)
[2022-01-05] MEDS: Acetaminophen 325 MG TAB PO SCH ×4 (05:35→23:23)
[2022-01-05] MEDS ORDERED: Enoxaparin Sodium 30 MG/0.3 ML SYRINGE SC SCH (09:00)
[2022-01-05] MEDS: Famotidine 20 MG TAB PO SCH ×2 (09:28→20:47)
[2022-01-05] MEDS: Senokot S 8.6-50 MG TAB PO SCH ×2 (09:28→19:33)
[2022-01-05] MEDS: Lisinopril 20 MG TAB PO SCH (09:28)
[2022-01-05] MEDS: Amlodipine 5 MG TAB PO SCH (09:28)
[2022-01-05] MEDS: Polyethylene Glycol 3350 17 GM Packet PO SCH (09:29)
[2022-01-05] MEDS: Tamsulosin HCl 0.4 MG CAP PO SCH (09:29)
[2022-01-05] MEDS: Gabapentin 100 MG CAP PO SCH ×3 (09:30→23:23)
[2022-01-05 09:41] LABS: #Basophils 0.1 thou/uL (0.0-0.2); #Lymphocytes 1.2 thou/uL (1.20-3.40); #Neutrophils 8.9 thou/uL (1.40-6.50); %Basophils 0.6 % (0.0-1.0); %Eosinophils 0.4 % (0.0-10.0); %Lymphocytes 10.5 % (21.0-51.0); %Monocytes 9.1 % (0.0-10.0); %Neutrophils 79.5 % (42.0-75.0); Mean Corpuscular HGB CONC 32.3 g/dL (32.0-36.0); Mean Corpuscular Hemoglobin 33.1 pg (27.0-31.0); Mean Platelet Volume 7.5 fL (7.4-10.4); Platelet Count 237 thou/uL (130-400); RBC Distribution Width 12.1 % (11.5-14.5); Red Blood Cell (RBC) Count 4.54 mill/uL (4.70-6.10); White Blood Cell (WBC) Count 11.2 thou/uL (4.8-10.8)
[2022-01-05 10:03] LABS: Anion Gap 15 mmol/L (10-20); BUN (Urea Nitrogen) 12 mg/dL (8.4-25.7); Calc. Creatinine Clearance 0 mL/min (70-130); Carbon Dioxide 24 mmol/L (23-31); Chloride 100 mmol/L (98-107); Estimated GFR 92; Glucose 109 mg/dL (83-110); Magnesium 1.9 mg/dL (1.6-2.6); Phosphorus 2.6 mg/dL (2.3-4.7); Potassium 4.1 mmol/L (3.5-5.1); Sodium 135 mmol/L (136-145)
[2022-01-05 12:50] VITALS: BMI 23.6
[2022-01-05] MEDS ORDERED: Labetalol HCl 100 MG/20 ML VIAL SLOW IVP PRN (15:01)
[2022-01-05] MEDS: Cyclobenzaprine 10 MG TAB PO PRN (20:46)
[2022-01-05] MEDS: hydrALAZINE 20 MG/ML VIAL SLOW IVP PRN (21:22)
[2022-01-06] MEDS ORDERED: Furosemide 20 MG/2 ML VIAL SLOW IVP SCH (01:30)
[2022-01-06] MEDS: Acetaminophen 325 MG TAB PO SCH (05:29)
[2022-01-06 06:04] LABS: #Eosinphils 0.1 thou/uL (0.0-0.7); #Lymphocytes 1.2 thou/uL (1.20-3.40); #Monocytes 0.8 thou/uL (0.11-0.59); #Neutrophils 7.2 thou/uL (1.40-6.50); %Basophils 0.4 % (0.0-1.0); %Eosinophils 0.7 % (0.0-10.0); %Lymphocytes 12.8 % (21.0-51.0); %Monocytes 8.3 % (0.0-10.0); %Neutrophils 77.8 % (42.0-75.0); Hemoglobin 13.6 g/dL (14.0-18.0); Mean Corpuscular HGB CONC 32.8 g/dL (32.0-36.0); Mean Corpuscular Hemoglobin 33.5 pg (27.0-31.0); Platelet Count 226 thou/uL (130-400); Red Blood Cell (RBC) Count 4.07 mill/uL (4.70-6.10); White Blood Cell (WBC) Count 9.2 thou/uL (4.8-10.8)
[2022-01-06 06:30] LABS: ALT (SGPT) 18 U/L (8-55); AST (SGOT) 21 U/L (5-34); Albumin 3.4 g/dL (3.4-4.8); Alkaline Phosphatase 55 U/L (40-110); Anion Gap 13 mmol/L (10-20); BUN (Urea Nitrogen) 14 mg/dL (8.4-25.7); Bilirubin, Total 2.4 mg/dL (0.2-1.2); Calc. Creatinine Clearance 88 mL/min (70-130); Calcium 8.8 mg/dL (7.8-10.44); Carbon Dioxide 24 mmol/L (23-31); Chloride 101 mmol/L (98-107); Estimated GFR 94; Globulin 2.9 g/dL (2.4-3.5); Glucose 112 mg/dL (83-110); Magnesium 1.7 mg/dL (1.6-2.6); Phosphorus 2.6 mg/dL (2.3-4.7); Potassium 3.4 mmol/L (3.5-5.1); Protein, Total 6.3 g/dL (5.8-8.1); Sodium 135 mmol/L (136-145)
[2022-01-06] MEDS ORDERED: Potassium Chloride 20 MEQ TAB PO SCH (07:45)
[2022-01-06] MEDS ORDERED: Potassium Phosphate 30 MMOL, Magnesium Sulfate 2 GM in Sodium Chloride 0.9% 250 ML 250 ML IVPB SCH (08:00)
[2022-01-06] MEDS ORDERED: SODIUM CHLORIDE 0.9% IVPB SCH (08:00)
[2022-01-06] MEDS ORDERED: Magnesium 2 GM/50 ML(in water) 3 GM in Premix Bag 1 BAG IVPB SCH (08:00)
[2022-01-06] MEDS ORDERED: MAGNESIUM IVPB SCH (08:00)
[2022-01-06] MEDS ORDERED: Potassium Phosphate 30 MMOL, Magnesium Sulfate 3 GM in Sodium Chloride 0.9% 250 ML 250 ML IVPB SCH (08:15)
[2022-01-06] MEDS ORDERED: Enoxaparin Sodium 40 MG/0.4 ML SYRINGE SC SCH (09:00)
[2022-01-06] MEDS ORDERED: Lisinopril 10 MG TAB PO SCH (09:00)
[2022-01-06] MEDS: Senokot S 8.6-50 MG TAB PO SCH ×2 (09:49→10:13)
[2022-01-06] MEDS: Polyethylene Glycol 3350 17 GM Packet PO SCH (09:49)
[2022-01-06] MEDS: Amlodipine 5 MG TAB PO SCH (09:50)
[2022-01-06] MEDS: Gabapentin 100 MG CAP PO SCH (09:50)
[2022-01-06] MEDS: Famotidine 20 MG TAB PO SCH (09:50)
[2022-01-06] MEDS: Tamsulosin HCl 0.4 MG CAP PO SCH (09:51)
[2022-01-06 12:38] VITALS: BP 171/73; TEMP 98.3
== END 2022-01-06 13:15 | DRG 552 ==
LOC: ERS 20:02 → SURG A 23:41
PROVIDERS: ADMIT Specialist; ATTEND Specialist
DX: S22.020A Wedge compression fracture of second thoracic vertebra, initial encounter for closed fracture (principal); N13.8 Other obstructive and reflux uropathy; Z20.822 Contact with and (suspected) exposure to COVID-19; I10 Essential (primary) hypertension; I48.91 Unspecified atrial fibrillation; E78.5 Hyperlipidemia, unspecified; N40.1 Benign prostatic hyperplasia with lower urinary tract symptoms; R33.8 Other retention of urine; E11.51 Type 2 diabetes mellitus with diabetic peripheral angiopathy without gangrene; F17.210 Nicotine dependence, cigarettes, uncomplicated; S60.512A Abrasion of left hand, initial encounter; S90.412A Abrasion, left great toe, initial encounter; W17.89XA Other fall from one level to another, initial encounter; Z60.2 Problems related to living alone; Z86.73 Personal history of transient ischemic attack (TIA), and cerebral infarction without residual deficits; Z95.0 Presence of cardiac pacemaker; Z98.890 Other specified postprocedural states; Z79.899 Other long term (current) drug therapy; Z79.82 Long term (current) use of aspirin
CPT/HCPCS: 36415; 36416; 70450; 71260; 72125; 74177; 80048; 80053; 80306; 80307; 81003; 81015; 82550; 82553; 83735; 84100; 84484; 85025; 85610; 85730; 87086; 93005; 96374; 96375; G0390; J0360; J1650; J1940; J2270; J3475; J3490; J7050; J7120; Q9967; U0002

== ENCOUNTER 2022-01-29 17:38 | Inpatient (IN) | payer OTHER ==
[2022-01-29] MEDS ORDERED: Morphine 4 MG/ML VIAL SLOW IVP PRN (18:48)
[2022-01-29] MEDS: Morphine 4 MG/ML VIAL SLOW IVP SCH ×3 (19:04→23:16)
[2022-01-29] MEDS: Lorazepam 2 MG/ML VIAL SLOW IVP PRN (19:26)
[2022-01-30] MEDS: Morphine 4 MG/ML VIAL SLOW IVP SCH ×2 (01:27→03:45)
[2022-01-30] MEDS ORDERED: Morphine 2 MG/ML VIAL SLOW IVP PRN (03:53)
[2022-01-30] MEDS: Lorazepam 2 MG/ML VIAL SLOW IVP PRN ×2 (03:59→11:54)
[2022-01-30] MEDS: Morphine 2 MG/ML VIAL SLOW IVP SCH ×5 (05:53→13:59)
[2022-01-30 09:06] VITALS: BP 185/52; TEMP 98.4
== END 2022-01-30 14:48 | disposition expired | DRG 951 ==
LOC: T4-A 17:38
PROVIDERS: ADMIT Internal Medicine; ATTEND Internal Medicine
DX: Z51.5 Encounter for palliative care (principal); I63.9 Cerebral infarction, unspecified; J96.01 Acute respiratory failure with hypoxia; I69.351 Hemiplegia and hemiparesis following cerebral infarction affecting right dominant side; E11.9 Type 2 diabetes mellitus without complications; I48.91 Unspecified atrial fibrillation; E78.5 Hyperlipidemia, unspecified; N40.0 Benign prostatic hyperplasia without lower urinary tract symptoms; I73.9 Peripheral vascular disease, unspecified; F17.210 Nicotine dependence, cigarettes, uncomplicated; I10 Essential (primary) hypertension; Z79.82 Long term (current) use of aspirin; Z79.899 Other long term (current) drug therapy; Z95.810 Presence of automatic (implantable) cardiac defibrillator
CPT/HCPCS: J2060; J2270